=== PATIENT | female | born 1975 | race Caucasian/White ===

== ENCOUNTER 2023-05-29 13:10 | Outpatient (OUT) | payer OTHER, SELFPAY ==
--- NOTE | 2023-05-29 13:19 | XR_ITS ---
[place] [id number] Patient Name: VAIBHAV RIVERA MRN: [id number] date: 1975 Sex: F Assigned Patient Location: [facility] Current Patient Location: [facility] Accession/Order Number: [id number] Exam Date: 05/29/2023 13:30 Report Date: 05/29/2023 16:52 At the request of: VARUN GLASS Procedure: XR tibia fibula LT 2V STUDY: XR tibia fibula LT 2V, [id number] HISTORY: Left Hip Pain, Left Leg Pain COMPARISON: None FINDINGS: No acute fracture, dislocation, or suspicious osseous lesion. No lucent lesion of the talar dome. Medium-sized plantar calcaneal spur. Mild osteoarthritis of the medial compartment of the knee. XR/XR tibia fibula LT 2V IMPRESSION: No acute osseous abnormality. Electronically authenticated by: JOSH MONROY Date: 05/29/2023 16:52
--- NOTE | 2023-05-29 13:19 | XR_ITS ---
The [address] [address] Patient Name: VAIBHAV RIVERA MRN: [id number] date: 1975 Sex: F Assigned Patient Location: [facility] Current Patient Location: [facility] Accession/Order Number: [id number] Exam Date: 05/29/2023 13:30 Report Date: 05/29/2023 16:50 At the request of: VARUN GLASS Procedure: XR hip LT 1V STUDY: XR hip LT 1V, [id number] HISTORY: Left Hip pain, Left Leg Pain COMPARISON: None FINDINGS: No acute fracture, dislocation, or suspicious osseous lesion. No significant degenerative changes. An IUD projects over the pelvis. XR/XR hip LT 1V IMPRESSION: Negative exam. No osseous etiology for left hip pain demonstrated. Electronically authenticated by: JOSH MONROY Date: 05/29/2023 16:50
--- NOTE | 2023-05-29 13:19 | XR_ITS ---
The [place] [id number] Patient Name: VAIBHAV RIVERA MRN: [id number] date: 1975 Sex: F Assigned Patient Location: [facility] Current Patient Location: [facility] Accession/Order Number: [id number] Exam Date: 05/29/2023 13:30 Report Date: 05/29/2023 15:57 At the request of: VARUN GLASS Procedure: XR femur LT 2V XR femur LT 2V, 05/29/2023 1:30 PM EDT, OH001 INDICATION: Left Hip Pain, Left Leg Pain COMPARISON: None TECHNIQUE: 3 views are submitted. FINDINGS: The bones appear well mineralized. No acute fracture or subluxation is identified. The joint spaces are maintained. No destructive osseous process is identified. The visualized soft tissues appear unremarkable. XR/XR femur LT 2V IMPRESSION: No acute traumatic abnormality or malalignment. Electronically authenticated by: DEBRA KLINE Date: 05/29/2023 15:57
== END 2023-05-29 13:11 | disposition home or self-care (01) ==
LOC: RAD 13:10
PROVIDERS: PCP Family Medicine; Visit Provider Family Medicine
DX: M25.552 Pain in left hip (principal); M79.606 Pain in leg, unspecified
CPT/HCPCS: 73501; 73552; 73590

== ENCOUNTER 2024-01-30 10:21 | Emergency (ER) | payer OTHER, SELFPAY ==
[2024-01-30 10:24] VITALS: BP 180/100; PULSE 84; TEMP 36.9; O2SAT 100; BMI 43.5
--- NOTE | 2024-01-30 11:08 | ECG_ITS ---
The [facility] Test Date: 2024-01-30 Pat Name: VAIBHAV RIVERA Department: Room: - Gender: Female [employer]: : 1975 Requested By: VARUN GLASS Order Number: [id number] Reading MD: CRISTA DINH Measurements Intervals [place] Rate: 75 P: 50 SD: 158 QRS: 78 QRSD: 94 T: 60 QT: 382 QTc: 411 Interpretive Statements 1100 Sinus rhythm 9110 normal ECG No previous ECG available for comparison Electronically Signed On 01-31-2024 10:52:53 EDT by CRISTA DINH
--- NOTE | 2024-01-30 11:08 | XR_ITS ---
The [address] [address] Patient Name: VAIBHAV RIVERA MRN: [id number] date: 1975 Sex: F Assigned Patient Location: ER Current Patient Location: ER Accession/Order Number: [id number] Exam Date: 01/30/2024 11:20 Report Date: 01/30/2024 11:30 At the request of: DO ARTIS Procedure: XR chest 1V EXAM: XR chest 1V HISTORY: . chest pain . COMPARISON: 01/30/2024 TECHNIQUE: Single view of the chest FINDINGS: Heart and vascularity are unremarkable. Lungs are free of focal infiltrates. Grossly no bony abnormality is appreciated. XR/XR chest 1V IMPRESSION: No acute heart or lung disease identified. Electronically authenticated by: VARUN BARLOW Date: 01/30/2024 11:30
[2024-01-30 11:22] LABS: Bilirubin Urine NEGATIVE (NEGATIVE); Blood Urine NEGATIVE (NEGATIVE); Clarity Urine CLEAR (CLEAR); Color Urine LT. YELLOW (YELLOW); Glucose Urine UA NEGATIVE (NEGATIVE); Ketones Urine NEGATIVE (NEGATIVE); Leukocyte Esterase Urine NEGATIVE (NEGATIVE); Nitrite Urine NEGATIVE (NEGATIVE); Protein Urine NEGATIVE (NEG/TRACE); Specific Gravity Urine <=1.005 (1.005-1.025); Urobilinogen Urine 0.2 EU/dL (0.2-1.0)
[2024-01-30] MEDS: KETOROLAC TROMETHAMINE 30 MG/ML VIAL 15 MG IVP (11:22)
[2024-01-30 11:23] LABS: Urine Microscopic Indicated NO
[2024-01-30] MEDS: DIAZEPAM 10 MG/2 ML SYRINGE 5 MG IV (11:23)
[2024-01-30 11:27] LABS: Basophils Percent Auto 0.6 % (0.2-2.0); Eosinophils Absolute Auto 0.1 10^3/uL (0.0-0.7); Eosinophils Percent Auto 0.9 % (0.9-7.0); Hematocrit 41.2 % (36.0-48.0); Hemoglobin 13.7 g/dL (12.0-16.0); Immature Granulocytes Abs Auto 0.01 10^3/uL (0.00-0.03); Immature Granulocytes Pct Auto 0.2 % (0.0-0.5); Lymphocytes Absolute Auto 2.3 10^3/uL (1.2-3.8); Lymphocytes Percent Auto 42.7 % (20.5-60.0); Mean Corpuscular HGB Conc 33.3 g/dL (29.9-35.2); Mean Corpuscular Hemoglobin 30.4 pg (26.7-34.0); Mean Corpuscular Volume 91.6 fL (81.0-99.0); Mean Platelet Volume 8.7 fL (9.5-13.5); Monocytes Absolute Auto 0.3 10^3/uL (0.3-0.8); Monocytes Percent Auto 6.2 % (1.7-12.0); Neutrophils Absolute Auto 2.6 10^3/uL (1.4-6.5); Neutrophils Percent Auto 49.4 % (43.0-75.0); Platelet Count 302 10^3/uL (150-450); Red Cell Distribution Width 12.8 % (11.0-15.0); White Blood Count 5.3 10^3/uL (4.0-11.0)
[2024-01-30 11:35] LABS: Anion Gap 15.8; BUN Creatinine Ratio 14.7; Calcium 9.6 mg/dL (8.5-10.1); Carbon Dioxide 26.2 mmol/L (21.0-32.0); Chloride 103 mmol/L (98-107); Estimated GFR (African America >60 (>=60); Estimated GFR (Non-African Ame >60 (>=60); Glucose 105 mg/dL (74-106); Sodium 141 mmol/L (136-145)
[2024-01-30 11:43] LABS: Troponin I High Sensitivity <4.0 pg/mL (4.0-51.3)
[2024-01-30 13:21] VITALS: PULSE 66; O2SAT 98
--- NOTE | 2024-01-30 13:22 | ED_ITS ---
HPI HPI - General Adult General Chief complaint: Back Pain/Injury Stated complaint: BACK PAIN Time Seen by Provider: 01/30/24 10:27 Source: patient Mode of arrival: walk-in Limitations: no limitations History of Present Illness HPI narrative: 48-year-old female to the emergency department with chief complaint of Back pain. Patient reports that she was sitting in her chair the other day at work and reached for something experienced a spasm-like pain in her left lower back. It does not radiate. It is worse with movement. She denies any bowel bladder incontinence. No numbness, weakness, tingling. It does limit her activity level. She saw her chiropractor for this and it helped. Patient also reports that she has some chronic back pain as well as some intermittent chronic pain in her left arm. She is concerned that she may be having a heart attack due to the pain in the left arm that occurs intermittently. Related Data Previous Rx's ?Medication ?Instructions ?Recorded cyclobenzaprine 10 mg tablet 10 mg PO BID PRN muscle spasm #10 01/30/24 tabs Allergies Allergy/AdvReac Type Severity Reaction Status Date / Time clarithromycin [From Biaxin] Allergy Mild Verified 01/30/24 10:24 Opioid HPI Opioid Management Most Recent Opioid Data: Last Pain Scale 77 01/30/24 11:22 Last MAR Pain Assessment 01/30/24 11:22 Review of Systems ROS Status of ROS 10 or more systems reviewed and unremark able except as noted in history and below Exam Narrative Exam Narrative: VITALS: I have reviewed the triage vital signs. GENERAL: Obese. adult in no acute distress. NEURO: Alert and oriented. Moves all extremities. Face is symmetric and expressive. Patellar reflexes brisk and equal bilaterally. Normal gait. Plantar flexion/dorsiflexion, knee flexion/extension, hip flexion/extension are grossly intact with 5/5 strength. Sensation is intact across the bilateral lower extremities. SPINE: No midline cervical, thoracic, or lumbar tenderness. No step-off or deformities. No paraspinal muscle tenderness or increased tone. EYES: PERRL. No scleral icterus or conjunctival injection. No discharge. HENT: Normocephalic, atraumatic. Hearing is grossly intact. Nares grossly patent and without discharge. Mucous membranes moist. NECK: No JVD. Patient moves neck without restriction. CARDIO: Rhythm regular. Normal rate. No murmur, rub, or gallop. Pulses equal bilaterally in the upper and lower extremity. No lower extremity edema. PULM: Lungs clear to auscultation in all ibrahim. No wheezes, rales, or rhonchi. No conversational dyspnea. No splinting, stridor, or accessory muscle use. GI/: Abdomen is soft and non-tender. Normoactive bowel sounds. No flank tenderness. EXTREMITIES: Symmetric muscle bulk. No joint swelling. No clubbing, cyanosis, or deformity. SKIN: Warm and dry. Normal turgor. No rash or lesions appreciated. PSYCH: Anxious Constitutional Vital Signs, click to edit/add: Last Vital Signs Temp 98.4 F 01/30/24 10:24 Pulse 84 01/30/24 10:24 Resp 18 01/30/24 10:24 BP 180/100 H 01/30/24 10:24 Pulse Ox 100 01/30/24 10:24 O2 Del Method Room Air 01/30/24 10:24 Course Vital Signs Vital signs: Vital Signs Temperature 98.4 F 01/30/24 10:24 Pulse Rate 84 01/30/24 10:24 Respiratory Rate 18 01/30/24 10:24 Blood Pressure 180/100 H 01/30/24 10:24 Pulse Oximetry 100 01/30/24 10:24 Oxygen Delivery Method Room Air 01/30/24 10:24 Temperature 98.4 F 01/30/24 10:24 Pulse Rate 84 01/30/24 10:24 Respiratory Rate 18 01/30/24 10:24 Blood Pressure 180/100 H 01/30/24 10:24 Pulse Oximetry 100 01/30/24 10:24 Oxygen Delivery Method Room Air 01/30/24 10:24 Medical Decision Making [facility] Narrative Medical decision making narrative: 48-year-old female to the emergency department with chief complaint of left- sided back pain and concerned she is having a heart attack. Vital stable, patient is aafebrile. Patient is very visibly anxious. Her neurologic examination is unremarkable. To alleviate her concerns about the left arm pain and heart attack order a cardiac workup. Symptoms ongoing gradient three hours, seen by sensory troponin and also rule out ACS. She is given Valium for her back pain/anxiety. No traumatic injury or red flags for cord compressing lesion, no indication for imaging of her spine at this time. CBC and chemistry without major abnormalities. Her troponin is undetectable. Urinalysis without evidence of infection or hematuria. Chest x-ray was without acute findings. EKG without evidence of ischemia. Heart score 2. Her pain does not sound cardiac. She is appropriate for outpatient follow-up. She did have relief with the Valium. She does not wish to be on any medications that could be addicting. She'll be sent home on Flexeril. Instructed to continue use of ibuprofen. She may follow up with her chiropractor as needed. Patient was discharged home. Lab Data Lab results reviewed: Yes I reviewed the patient's lab results Labs: Lab Results 01/30/24 01/30/24 Range/Units 10:45 11:15 WBC 5.3 (4.0-11.0) 10^3/uL RBC 4.50 (4.20-5.40) 10^6/uL Hgb 13.7 (12.0-16.0) g/dL Hct 41.2 (36.0-48.0) % MCV 91.6 (81.0-99.0) fL MCH 30.4 (26.7-34.0) pg MCHC 33.3 (29.9-35.2) g/dL RDW 12.8 (11.0-15.0) % Plt Count 302 (150-450) 10^3/uL MPV 8.7 L (9.5-13.5) fL Neut % (Auto) 49.4 (43.0-75.0) % Lymph % (Auto) 42.7 (20.5-60.0) % [place] % (Auto) 6.2 (1.7-12.0) % Eos % (Auto) 0.9 (0.9-7.0) % Baso % (Auto) 0.6 (0.2-2.0) % Neut # (Auto) 2.6 (1.4-6.5) 10^3/uL Lymph # (Auto) 2.3 (1.2-3.8) 10^3/uL [place] # (Auto) 0.3 (0.3-0.8) 10^3/uL Eos # (Auto) 0.1 (0.0-0.7) 10^3/uL Baso # (Auto) 0.0 (0.0-0.1) 10^3/uL Abs Immat Gran (auto) 0.01 (0.00-0.03) 10^3/uL Imm/Tot Granulo (auto) 0.2 (0.0-0.5) % Sodium 141 (136-145) mmol/L Potassium 4.0 (3.5-5.1) mmol/L Chloride 103 (98-107) mmol/L Carbon Dioxide 26.2 (21.0-32.0) mmol/L Anion Gap 15.8 BUN 10.0 (7.0-18.0) mg/dL Creatinine 0.68 (0.55-1.02) mg/dL Est GFR ( Amer) >60 (>=60) Est GFR (Non-Af Amer) >60 (>=60) BUN/Creatinine Ratio 14.7 Glucose 105 (74-106) mg/dL Calcium 9.6 (8.5-10.1) mg/dL Troponin I High Sens <4.0 L (4.0-51.3) pg/mL Urine Color Lt. yellow (YELLOW) Urine Clarity Clear (CLEAR) Urine pH 7.0 (5.0-9.0) Ur Specific [place] <=1.005 A (1.005-1.025) Urine Protein Negative (NEG/TRACE) mg/dL Urine Glucose (UA) Negative (NEGATIVE) mg/dL Urine Ketones Negative (NEGATIVE) mg/dL Urine Occult Blood Negative (NEGATIVE) Urine Nitrite Negative (NEGATIVE) Urine Bilirubin Negative (NEGATIVE) Urine Urobilinogen 0.2 (0.2-1.0) EU/dL Ur Leukocyte Esterase Negative (NEGATIVE) Imaging Data Chest x-ray: Attestation: I have reviewed the pertinent imaging results. Radiologist's impression: ITS Impressions Chest X-Ray 01/30/24 11:08 IMPRESSION: No acute heart or lung disease identified. Electronically authenticated by: VARUN BARLOW Date: 01/30/2024 11:30 ECG Data Attestation: I personally reviewed and interpreted this ECG as follows: (No STEMI. Normal QTc. Normal sinus rhythm.) Discharge Plan Discharge Stand Alone Forms: Portal Instructions Chief Complaint: Back Pain/Injury Clinical Impression: Strain of lumbar region Patient Disposition: Home, Self-Care Time of Disposition Decision: 12:39 Condition: Good Mode of Transportation: Private Vehicle Prescriptions / Home Meds: New cyclobenzaprine 10 mg tablet 10 mg PO BID PRN (Reason: muscle spasm) Qty: 10 0RF Print Language: [place] Instructions: Low Back Strain (ED), Lower Back Exercises (ED) Referrals: VARUN GLASS [Primary Care Provider] - 1 week
== END 2024-01-30 13:22 | disposition home or self-care (01) ==
PROVIDERS: Emergency Provider Student in an Organized Health Care Education/Training Program; PCP Family Medicine
DX: S39.012A Strain of muscle, fascia and tendon of lower back, initial encounter (principal); X50.9XXA Other and unspecified overexertion or strenuous movements or postures, initial encounter
CPT/HCPCS: 36415; 71045; 80048; 81003; 84484; 85025; 93005; 96374; 96375; 99285

== ENCOUNTER 2025-09-24 00:32 | Emergency (ER) | payer OTHER, SELFPAY ==
--- OUTSIDE RECORDS SUMMARY | 2025-09-14 19:52 | XMS_ITS | Continuity of Care Document ---
Author Organization [facility] Address [address] [place] [address] Phone Care Team Providers Care Cleaning Manager Name Role Phone Amanuel Kevin DO Primary Care Provider Amanuel Kevin DO Attending Provider Nathan Suggs APRN Attending Provider Care Teams Patient Care Team Team Status: Active Member Role/Relationship Status Dates Amanuel Kevin DO Primary Care Provider Active Visit Care Team Team Status: Inactive Member Role/Relationship Status Dates Amanuel Kevin DO Primary Care Provider Active S tart: August 04, 2025 End: August 04, 2025Dahali Kevin DOAttending ProviderActiveStart: August 04, 2025 End: August 04, 2025 Visit Care Team Team Status: Inactive Member Role/Relationship Status Dates Amanuel Kevin DO Primary Care Provider Active S tart: September 14, 2025 End: September 14, 2025Clark Chavez ProviderActiveStart: September 14, 2025 End: September 14, 2025 Visit Care Team Team Status: Inactive Member Role/Relationship Status Dates Amanuel Kevin DO Primary Care Provider Active S tart: September 14, 2025 End: September 14, 2025Clark Chavez ProviderActiveStart: September 14, 2025 End: September 14, 2025 Chief Complaint and Reason for Visit Chief Complaint Admit Date med refill August 04, 2025 1 1:14am GERD/refer by Dr Kevin September 14, 2 025 2:17pm K21.9 September 14, 2025 3:31pm Reason for Visit Admit Date Acute sinusitis August 04, 2025 1 1:14am Anxiety August 04, 2025 1 1:14am Other obesity due to excess calories Nov ember 2024 11:14am Eructation September 14, 2025 2:17pm GERD (gastroesophageal reflux disease) D ecember 2024 2:17pm Irritable bowel syndrome with constipati on September 14, 2025 2:17pm Nausea September 14, 2025 2:17pm Allergies, Adverse Reactions, Alerts Allergen Type Severity Reaction Last Updated Verified Status bupropion Allergy Unknown felt off on it August 282024 2:50pm Yes Active clarithromycin Allergy Unknown Nausea, GI upset Dece mber 2024 2:50pm Yes Active topiramate Allergy Unknown Unknown Reaction September 14, 2025 2:50pm Yes Active Social History Smoking Status Status Start Date End Date Date of Observa tion Ex-smoker (finding) August 04, 2025 11:13am Observation Status Observation Response Date of Response Legal Sex Female (finding) Sex Assigned At BirthFemaleMay 1974 Family History Relationship Condition Age at Onset Recorded Date/T erlinda mother Transient ischemic attack Unknown HypertensionUnknownfatherMalignant neoplasm of lungUnknownfatherDiabetes mellitusUnknownMalignant neoplasmUnknownFamily history of lung cancerUnknown DeceasedUnknowngrandparentDeceasedUnknowngrandparentDeceasedUnknowngrandparent DeceasedUnknowngrandparentObesityUnknownmotherHypertensionUnknown Problems Active Problems Problem Diagnosis/Recorded Date Onset Date Stat us Unspecified abnormal findings in urine March 01, 2025 7:22am Unknown Active Other detention (current) drug therapy February 01, 2024 4 :53pm Unknown Active Other obesity due to excess calories January 11, 2025 9:04am Unknown Active Sacroiliitis December 05, 2024 3:46pm Unknown Acti ve Cold sore June 12, 2025 9:41am Unknown Active Fatigue July 08, 2024 11:51am Unknown A ctive Palpitations November 22, 2017 7:17am Unknown A ctive Irregular periods January 11, 2025 9:18am Unknown Active Paresthesia May 02, 2024 3:23pm Unknown Acti ve Chronic pain February 01, 2024 4:52pm Unknown Active Acute sinusitis September 30, 2024 10:02am Unknown Active Anxiety November 22, 2017 7:17am Unknown A ctive Breathing difficulty September 30, 2024 10:02am Unknown Active Eructation September 14, 2025 3:47pm Unknown A ctive Cephalgia February 26, 2022 6:07pm Unknown Active Hyperglycemia February 01, 2024 5:08pm Unknown Active Hyperlipidemia February 01, 2024 4:52pm Unknown Activ e Arm pain, left February 01, 2024 5:07pm Unknown Activ e Facial paresthesia February 26, 2022 6:07pm Unknown Active Cervical spondylosis December 05, 2024 3:49pm Unknown Active SI (sacroiliac) joint dysfunction February 01, 2024 5:26pm Unknown Active Other chronic pain December 05, 2024 3:46pm Unknown Active Left leg paresthesias February 26, 2022 5:08pm Unknown Active Weight gain February 01, 2024 5:11pm Unknown Active Abnormal urinalysis February 01, 2024 5:08pm Unknown Active Facial droop February 26, 2022 6:07pm Unknown Active Lumbar pain February 01, 2024 4:54pm Unknown Active Cervical pain March 11, 2024 9:15am Unknown Acti ve Thoracic back pain November 07, 2024 5:09pm Unknown Active GERD (gastroesophageal reflux disease) February 01, 2024 3 :07pm Unknown Active Irritable bowel syndrome wit h constipation September 14, 2025 3:48pm Unknown Active Chest pain September 30, 2024 10:20am Unknown Ac tive Nausea September 14, 2025 3:47pm Unknown A ctive Constipation September 02, 2024 10:41am Unknown A ctive Arthritis of lumbosacral spine December 05, 2024 3:46pm Unknown Active Hypocalcemia May 01, 2025 9:46am Unknown Acti ve Medications Medication Status Dose Units Route Directions Qty Days Refills S tart Date Stop Date End Date Reason(s) Instructions Adherence Venlafaxine (Effexor Xr) 37. 5 mg capsule,extended release 24hr Discontinued 37.5 MG PO Daily 30 0May 2023 11:00pmJune 2023 11:20amVenlafaxine (Effexor Xr) 37.5 mg capsule,extended release 76ftRuqfaelgvbwq59.8EPQROgjba3545Bqmh 2023 11:20am September 30, 2024 10:17amMeloxicam 15 mg udxxnfHdtcjxunetwt06PWSYJlzdb463Crmd 2023 11:00pmJanuary 2024 9:51amwith foodAlprazolam 1 mg tablet Ucirneyebyym8TVUHCSESB 8-12 HOURS as needed for tfwkyvh44080Uhsu 2023 10:31amNovember 2023 4:49pmAnxiety Anxiety disorder, unspecifiedsemaglutide 0.6 mgActive0.5MLSUBCUT.once byfapa00 August 01, 2024 12:00amUnknownFluoxetine (Prozac) 40 mg alhgejzGbsqotepfdpf85 MGPOEvery dsnqrml775Vwjrxoaa 2024 12:00amMay 2024 7:11amFluoxetine (Prozac) 40 mg uxqcewpZxqljfgvmzqy34CDKBGnrwg iqoseiu333Xch 2nd, 2025 7:11am May 30, 2025 9:07amFluoxetine 40 mg frgivknHwkqcuahjryj88JLKHOonrs humuyxb142Mrylxtimj 2nd, 2025 9:07amDecember 2024 8:44amFluoxetine 40 mg capsuleActive0.ROUTE.OFCXTXW487Utanpuae 2024 8:43amTAKE 1 CAPSULE BY MOUTH EVERY MORNINGUnknownPantoprazole 40 mg tablet,delayed release (DR/EC)Wyaora14OY TZRtcus287Qlpwpbzn 2024 12:00amUnknownVenlafaxine (Effexor) 25 mg Tablet Fosyedhzevym37MYVXKpgmzCzfdqnab 21st, 2022 12:00amMay 2023 4:43pmAscorbic Acid (Vitamin C) (Vitamin C) 100 mg FsnqaqLricxosxubow836LYFDHpineTusvsrzw 2021 12:00amMa2023 4:47pmGabapentin 300 mg OerpdtyDmfqikmlimoy924CDUD DailyDece2021 12:00amMay 2023 4:43pmCholecalciferol (Vitamin D3) (Vitamin D3) 10 mcg (400 unit) CjtwsstVfspfifmwtlm45QKMCMUmgirGowosrfz 2021 12:00amMay 2023 4:42pmAscorbic Acid (Vitamin C) (Vitamin C) 100 mg rrpwbzHghunymrkanm784CQDWBroioEra 2023 4:42pmMay 2023 4:54pmAlprazolam 0.25 mg ywimuoDpigpndodnzp7XIPPNNcupo times daily as needed for AnxietyFebruary 2017 12:00amJanuary 2019 12:00pmBupropion Hcl 300 mg tablet extended release 24 ziBbeaiibziugp349DHDFCmnxpZrfjgedd 2017 12:00amJanuary 2019 12:00pmFluoxetine (Prozac) 40 mg HiqnsreIlxnlwpnrjhy68IPJFXjcayYexykqq 2019 12:00amJune 2021 2:22pmAlprazolam (Xanax) 0.5 mg Tablet Discontinued0.5MGPOTwice daily as needed for AnxietySepuary 2019 12:00am February 01, 2024 4:44pmPhentermine-Topiramate (Qsymia) 7.5-46 mg Capsule, Er Multiphase 24 NoRtnrvbqgqjcm0VDLRIAgajpOmm 2021 11:00pmDecember 2021 7:57amAtorvastatin 20 mg LervumVqwtctvizeuz14VAMYNndxz mrfqash251Csni 2021 11:00pmDecember 2021 7:57amAspirin (Children's Aspirin) 81 mg Tablet,TvxpesdoCmkoicqxouuw89WWPKFgkfp332Cjod 2021 11:00pmDecember 2021 7:57amOmeprazole 20 mg capsule,delayed release(DR/EC)Hvmtsiovarnc0AXFVP DailyMay 2023 11:00pmJanuary 2024 9:58amFreeTextSi capsule 30 minutes before morning meal Orally Once a day; Note: Source Status: Taking; Provider: Dorita Vital ( )Ibuprofen 800 mg ozqnmtZiflocttefxu201 MGPOEVERY 8-12 HOURS as neededMay 2023 11:00pmJune 2023 9:15am Albuterol Sulfate 90 mcg/actuation HFA aerosol inhalerDiscontinuedINHALATIONMay 2023 11:00pmFebruary 2024 4:56pmFreeTextSi inhalations Inhalation qid; Note: Source Status: Taking; Refills: 1; Provider: Dorita Vital CAlprazolam 1 mg irtcjuEfhydknoibqk5GKIMEGMGS 8-12 HOURS as neededJanuary 31, 2024 11:00pmMay 2023 5:24pmDocusate Sodium 100 mg pobjihjCjwgerjrbdnf2AZZRDLcbcyFya 2023 11:00pmMay 2023 4:55pmFreeTextSi capsule Orally Once a day; Note: Source Status: Takingprn; Provider: Dorita Vital CFluticasone Propionate 50 mcg/actuation spray,zsfzvrmybbYnufmn3JSCJMDZDRMSDWVAEvbsdSkf 5th, 2024 11:00pm FreeTextSi sprays in each nostril Nasally Once a day; Note: Source Status: Not-Taking\PRNprn; Refills: 3; Provider: Dorita KimknownBupropion Hcl (Wellbutrin Xl) 150 mg tablet extended release 24 kuAwtdffehsxxo867ZTUADuheq morningMa2023 11:00pmMay 2023 5:24pmDocusate Sodium 100 mg capsule Pvczqd415OAVDPwfgzEbl 6th, 2024 4:55pmUnknownBupropion Hcl (Wellbutrin Xl) 150 mg tablet extended release 24 olYhqjzfmcqotq998QKUMOcoum bqnckaw034Oqt 6th, 2024 5:16pmMay 2023 5:29pmPrednisone 20 mg rdlggcCadderxlgnys2EZ.with food or oczy1261BbyJanuary 31, 2024 11:00pmMay 2023 5:29pmtake 3 tablets a day x3 days, 2 tabs a day x3 days and then 1 tab a day x3 days orally WITH FOOD ORMILK; Alprazolam 1 mg zlgvkoMqcacubwqpei5BNIAEGKZI 8-12 HOURS as needed for 100May 2023 5:23pmJune 2023 10:31amAnxiety Anxiety disorder, unspecifiedBupropion Hcl (Wellbutrin Xl) 150 mg tablet extended release 24 deVefidusdprwq696JRDKOtobu cbdtbqd942Pxw 2023 5:27pmMay 2023 12:18pmPrednisone 20 mg pguiekKdcogayytizd0PX.with food or mnyi9218 February 01, 2024 5:27pmJune 2023 9:15amtake 3 tablets a day x3 days, 2 tabs a day x3 days and then 1 tab a day x3 days orally WITH FOOD ORMILK;Omeprazole 20 mg capsule,delayed release(DR/EC)Gkdfdrpladsz17TUWO.COMPLEXJanuary 2024 9:58amDecember 2024 9:05am20 mg orally 1 capsule 30 minutes before morning meal;Albuterol Sulfate 90 mcg/actuation HFA aerosol yazfzoyEdwvmi4QQNGEJJVHAEHB Four times dailyFebruary 2024 4:56pmUnknownAspirin (Jie Low Dose Aspirin) 81 mg tablet,delayed release (DR/EC)Pojbxr95XRMSUmqsqOtfvnzs 2023 11:00pmUnknownAlprazolam 1 mg dxvmvtCrytibzkeogu3JUQDCWJFD 8-12 HOURS as needed for nraigre08788Hmjozeqe 2023 4:49pmJanuary 2024 10:19amAnxiety Anxiety disorder, unspecifiedAlprazolam 1 mg eepjqmOwqxsiytouyk7RBEXURVGP 8-12 HOURS as needed for wakpfbc80417Qvhnsevy 2024 5:29pmApril 2024 9:15amAnxiety Anxiety disorder, unspecifiedNitroglycerin 0.4 mg tablet, sublingualActive0.4MG ASOECQXVUJW8R as needed for chest uoez202Qmbzlkdm 2024 12:00amdo not exceed 3 dosesUnknownAlprazolam 1 mg sthdubQlwxyc9CADMLEIDU 8-12 HOURS as needed for jmroegg10158Hmplxo 2024 9:56amAnxiety Anxiety disorder, unspecifiedUnknownMeloxicam 15 mg xguhitDbmzvptzubgf18ZZYD Daily as neededJanuary 2024 9:49amAugust 2024 9:34amwith food Amoxicillin-Pot Clavulanate 875-125 mg zsfsptCuxbulczsojy1BJCRTGulwm twhqw1180 September 30, 2024 12:00amFebruary 2024 4:49pmwith foodFluoxetine (Prozac) 20 mg iehgodvKkjxuwqsjucq26DEJRQorol660Qqisqfz 2024 12:00amFebruary 2024 9:38amAlprazolam 1 mg icjereCfricbfglyaa3CUJSANMZQ 8-12 HOURS as needed for mhcpdto89476Lmafupv 2024 10:19amFebruary 2024 5:32pmAnxiety Anxiety disorder, unspecifiedAlprazolam 1 mg cnmvptXmjeqjrncuvp6IYRUASNPY 8-12 HOURS as needed for imxwdmk69442Fethl 2024 9:15amAugust 2024 9:56am Anxiety Anxiety disorder, unspecifiedValacyclovir (Valtrex) 1 gram tabletDiscontinued 1000MGPOThree times xnheu5034Xcwpeodna 14th, 2025 11:00pmNov2024 11:12amPrednisone 20 mg zjndjyJlifeglzdxfr3NK.with food or lnjn7469Bekzsbwgs 14th, 2025 11:00pmNov2024 11:11amtake 3 tablets a day x3 days, 2 tabs a day x3 days and then 1 tab a day x3 days orally WITH FOOD ORMILK;Amoxicillin- Pot Clavulanate 875-125 mg lrlxsnWjbmmziejzqw3FSDMZJuecm oflgb95439Jxtwpzxpc 14th, 2025 11:00pmNov2024 11:11amwith food Immunizations Immunization Event Date Not Given Reason Dose Number [employer] Lot Number Reason(s) Given Vaccine Information Statement (VIS) Detail Administration Location Hepatitis B Vaccine, adult dosage May 06 Hepatitis B Vaccine, adult dosageSeptember 2001Hepatitis B Vaccine, adult dosageMarch 2002Measles, Mumps, and Rubella Virus VaccineDeceer 2018Quadrivalent InfluenzaDecember 2018Trivalent Influenza VaccineOctober 1Patient RefusedVaricella Virus VaccineDeceer 2018 Procedures Procedure Date Performed Status XR KUB September 14, 2025 3:36pm compl eted Relevant Diagnostic Tests and/or Laboratory Data Diagnostic Imaging Reports Author Zhou Warren [facility]Report Date/TimeDeceer 2024 10:03pm [facility] Main [place] [address] [place] [address] XRay Report Signed Patient: Araseli Fernandez MR#: [id number] : 1975 Acct:[id number] Age/Sex: 50 / F ADM Date: 5 Loc: XD Room: Type: [facility] Attending Dr: Nathan Suggs APRN Copies to: Nathan Suggs APRN~ Ordering Provider: Nathan Suggs APRN Date of Service: 09/14/25 XR/XR KUB: K21.9 - Gastro-esophageal reflux disease without esophagitis XR KUB 09/14/2025 4:02 PM SIGNS AND SYMPTOMS: ^K21.9 - Gastro-esophageal reflux disease without esophagitis, constipation PROTOCOL: Frontal radiographs of the abdomen and pelvis COMPARISON: None FINDINGS: There is a large amount of stool within the right hemicolon suggesting constipation. There is no bowel obstruction or free air. Degenerative changes are noted in the lumbar spine and sacroiliac joints. There is an intrauterine device within the pelvis. XR/XR KUB IMPRESSION: There is a large amount of stool within the right hemicolon suggesting constipation. There is no bowel obstruction or free air. Impression dictated by: Zhou Warren M.D. 09/14/2025 10:03 PM Dictation Location: [place] [address] Transcribed By: [facility] 09/14/252202 Dictated By: Zhou Warren II, MD 09/14/252201 Signed By: <Electronically signed by Zhou Warren II, MD in OV> 09/14/252202 Vital Signs Vital Reading Result Reference Range Collection Date/Time Height 63 [in_i] August 04, 2025 10:67rsYtlfcx93.18 kgNov2024 10:58amBody Snutltdwexl02.0 [degF]97.6-99.0August 04, 2025 10:58amHeart Rate73 /emo04-180 August 04, 2025 10:58amOxygen saturation by Pulse %95-100August 04, 2025 10:58amBP Coexuhdb800 mm[Hg]100-140August 04, 2025 10:58amBP Yeihzcrnp30 mm[Hg]60-100Nov2024 10:58amBMI (Body Mass Index)33.6 kg/f0KnykornqAugust 04, 2025 10:66njRkfxmt68 [in_i]September 14, 2025 2:50pmWeight 86.18 kgD[facility] 2:50pmBMI (Body Mass Index)33.6 kg/x0Uhcqzfex 2024 2:50pm Advance Directives Advance Directive Response Recorded Date/ Time Advance Directives No September 30, 2024 10:24am Insurance Providers Guarantor Araseli Garduno [facility] Address [address] [place] [id number] Info.Home Phone: Payer Group Member ID Coverage Type Subscriber Relationship to Subscriber Effective Date Expiration Date O Id: [id number] Miller , D Id: [id number] [address] [place] [id number] Home Phone: Email: [email or web address] Encounters Encounter Location(s) Arrival/Admit Date Discharge/Departure Date Discharge/Departure Disposition Provider(s) Departed Physician/ Provider Office Visit -[facility] August 04, 2025 11:14am August 04, 2025 11:34am Discharged to home care or self care (routine discharge) Amanuel Kevin DO Departed Physician/ Provider Office Visit -[facility] September 14, 2025 2:17pm September 14, 2025 3:14pm Discharged to home care or self care (routine discharge) Nathan Suggs APRN Departed Clinical -[facility] September 14, 2025 3:31pm September 14, 2025 3:32pm Discharged to home care or self care (routine discharge) Nathan Suggs , DIRECTOR OF DESIGN Recent Diagnosis Onset Date Admit Date Acute sinusitis Unknown August 04 11:14am Anxiety Unknown August 04 11:14am Other obesity due to excess calories Unknown August 04, 2025 11:14am Eructation Unknown September 14, 025 2:17pm GERD (gastroesophageal reflux disease) Unknown September 14, 2025 2:17pm Irritable bowel syndrome with constipation Unkno wn September 14, 2025 2:17pm Nausea Unknown September 14 025 2:17pm Assessments Author Amanuel Kevin [facility] 2024 11:43amThe above note written by ___Vanna Cook____ acting as human recorder, note dictated by Dr. Vernon .I performed the above HPI, ROS, and Examination. I formulated and dictated the treatment plan and was present for entire encounter. Amanuel Kevin D.O. Plan of Treatment Author Vanna Cook [facility] 2024 11:31amShe does continue to use and benefit from the Xanax. She should call when she needs a refill. Frequent appointments needed due to addiction potential of medication. Pain inventory sheet completed and reviewed if opioid medication given. Pain contract is on file if pertinent. Patient will have office visits every three months for evaluation or sooner if needed. I discussed addiction potential of medication with the patient. Discussed with the patient and provided a treatment plan including the use of non-opioid analgesics and non-pharmacological intervention with patient if treated for pain. We have discussed realistic benefits and known risks of opioid/controlled therapy and the expected benefits for both pain and function. These benefits outweigh the risks. Patient has been counselled on the dangers of combining opioids/controlled prescriptions with alcohol or other sedatives and counseled on the safe storage and disposal of opioids/controlled prescriptions. Do not drive or operate heavy machinery after taking opioid/controlled medication. I have verified that no current substance abuse treatments are being prescribed.? She was on Prednisone in May (2024) which did make it difficult to lose weight. She is not doing any weight training. I did highly recommend that she do weight training three days a week. We discussed her increasing her dose. Right now she is comfortable continuing with the same dose (0.6 MG) once weekly and if at any time between now and her next visit she feels she wants to increase her dose she can call and we can increase her dose. She feels she is maintaining her weight well. She is concerned about the winter and being stuck inside, less active and the holidays are coming so she would like to see how she is able to do on her own. She is to continue to monitor her intake of carbs and sugars. Resolved. She feels that she did recover from her illness in May. She completed her medication as directed. Author [facility] Suggs [facility] 3:52[facility]- Continue current PPI therapy for treatment of GERD and nausea. - Anti-reflux precautions discussed: ?? Loss weight ?? Elevate head of bed 4-6 inches when sleeping ?? Avoid eating within 3 hours before bedtime. ?? Maintain upright posture during and after eating. ?? Avoid clothing that is tight in the abdominal area. ?? Minimize narcotics ?? Avoid foods that make symptoms worse (examples include coffee, chocolate, alcohol, peppermint, and fatty foods) . Eat 5-6 small meals throughout the day instead of 2-3 large meals. ?? Do not use tobacco products ?? Minimize alcohol use ?? Avoid lying down for 3 hours after a meal - Order abdominal x-ray to assess for underlying constipation. Will initiate bowel regimen if abdominal x-ray demonstrates constipation. -Follow-up office visit in 8 weeks for GERD and IBS-C. Future Tests Future scheduled test information is unavailable Pending Tests Pending diagnostic test information is unavailable Future Visits Future appointment information is unavailable Future Procedures Future procedure information is unavailable Future Medications Future medication information is unavailable Patient Instructions Patient instructions are unavailable
[2025-09-24 00:37] VITALS: BP 141/96; PULSE 95; TEMP 36.7; O2SAT 96; BMI 32.6
--- NOTE | 2025-09-24 01:01 | ED.ABDPAIN1 ---
HPI - Abdominal Pain General Chief Complaint: Abdominal Pain Stated Complaint: constipation Time Seen by Provider: 09/24/25 00:46 History of Present Illness HPI narrative: cc - constipation Pt saw a clinical abstractor - who noted constipation on abd xrays - and pt was instructed to give herself a colonoscopy prep in order to treat her constipation. She waited four days instead of starting right away. Then she tried to perform the miralax prep. But she was also eating solid foods - she did not know she was supposed to have a clear liquid diet. She did not take any laxatives or stool softeners. She also has not been increasing her oral fluid intake. Now she presents to the ED complaining that she has not passed stool in 36-48 hours. She is emotional and asking am I going to of sepsis from this? Fever or chills. No nausea or vomiting. No blood in urine. No recent history of blood in stool. Passed flatus earlier in the day. She passed small amounts of stool 1 day ago Patient's only prior abdominal surgery is a . No history of bowel obstruction. Related Data Home Medications ?Medication ?Instructions ?Recorded ?Confirmed fluoxetine 40 mg capsule 40 mg PO DAILY 09/24/25 09/24/25 Previous Rx's ?Medication ?Instructions ?Recorded bisacodyl 5 mg tablet,delayed 5 mg PO DAILY PRN constipation 2 09/24/25 release (Dulcolax (bisacodyl)) days #10 tabs polyethylene glycol 3350 17 17 g PO DAILY 4 days #68 grams 09/24/25 gram/dose oral powder (Miralax) Allergies Allergy/AdvReac Type Severity Reaction Status Date / Time clarithromycin (From Biaxin) AdvReac Mild Nausea Verified 09/24/25 00:37 PFSH PFSH Social History Little interest or pleasure in doing things: not at all Feeling down, depressed, or hopeless: not at all Exam Narrative Exam Narrative: Nurses notes and vital signs reviewed and patient is not hypoxic. afebrile General: Well-appearing and in no apparent distress. Skin: Warm, dry, no pallor noted. Eye: Pupils are equal, round and EOMI. No scleral icterus. Ears, Nose, Mouth, and Throat: Oral mucosa is moist Cardiovascular: Regular Rate and Rhythm without murmur, gallop or rub. Respiratory: No accessory muscle use or respiratory distress. Lungs are clear to auscultation, no wheezing, rales or rhonchi GI: Abdomen is soft, non-distended. Normal bowel sounds. No masses appreciated. No tenderness to palpation. No rebound, guarding, or rigidity noted. Neurological: A&O x4. No cranial nerve dysfunction observed. No truncal ataxia. Moves all extremities. Sensation intact. Psychiatric: Cooperative and interactive. Normal mood and affect. Constitutional Vital Signs, click to edit/add: Last Vital Signs Temp 98.1 F 09/24/25 00:37 Pulse 95 H 09/24/25 00:37 Resp 20 09/24/25 00:37 BP 141/96 H 09/24/25 00:37 Pulse Ox 96 09/24/25 00:37 O2 Del Method Room Air 09/24/25 00:37 Course Vital Signs Vital signs: Vital Signs Temperature 98.1 F 09/24/25 00:37 Pulse Rate 95 H 09/24/25 00:37 Respiratory Rate 20 09/24/25 00:37 Blood Pressure 141/96 H 09/24/25 00:37 Pulse Oximetry 96 09/24/25 00:37 Oxygen Delivery Method Room Air 09/24/25 00:37 Temperature 98.1 F 09/24/25 00:37 Pulse Rate 95 H 09/24/25 00:37 Respiratory Rate 20 09/24/25 00:37 Blood Pressure 141/96 H 09/24/25 00:37 Pulse Oximetry 96 09/24/25 00:37 Oxygen Delivery Method Room Air 09/24/25 00:37 MDM - Abdominal Pain MDM Narrative Medical decision making narrative: Patient was given oral Dulcolax and a soapsuds enema. Nurse also tried manual disimpaction but there was nothing distally found to remove. The patient was instructed to push but repeatedly states that she is afraid something bad is going to happen . Some sort of anxiety related or psychological issue going on as the patient's responses are disproportionate to the actual situation. She was able to pass liquid stool and - later - soft stool with some small chunks of formed stool. I printed off a copy of the [facility]'s MiraLAX and Gatorade bowel prep protocol which is very different than what she had received from the local clinical abstractor. Prescribed another bottle of MiraLAX and also some more Dulcolax pills. We talked about the importance of a clear liquid diet until she passes her stool. He was given reassurance and discharged home. Discharge Plan Discharge Chief Complaint: Abdominal Pain Clinical Impression: Constipation Patient Disposition: Home, Self-Care Time of Disposition Decision: 02:01 Prescriptions / Home Meds: New polyethylene glycol 3350 [Miralax] 17 gram/dose powder 17 g PO DAILY 4 Days Qty: 68 0RF bisacodyl [Dulcolax (bisacodyl)] 5 mg tablet,delayed release (DR/EC) 5 mg PO DAILY PRN (Reason: constipation) 2 Days Qty: 10 0RF No Action fluoxetine 40 mg capsule 40 mg PO DAILY Print Language: Somali Instructions: Constipation (ED) Referrals: VARUN GLASS [Primary Care Provider, Family Practice] - 1 week Discharge Date/Time: 09/24/25 02:19
--- OUTSIDE RECORDS SUMMARY | 2025-09-24 01:17 | XMS_ITS | Clinical Summary ---
Author Organization [facility] Address [address] [place] [id number] Care Team Providers Care Encoding Clerk Name Role Phone Amanuel Kevin DO Primary Care Provider [phone] Kenroy Sharma DO Unavailable [phone] Allergies Active AllergyReactionsCriticalityNoted DateCommentsClarithromycinGI Upset 11/24/2019 Medications MedicationSigDispense QuantityRefillsLast FilledStart DateEnd DateStatus ALPRAZolam (XANAX) 1 mg tablet as needed.10/07/2019Active cyclobenzaprine (FLEXERIL) 10 mg tablet daily at bedtime.11/17/2019Active FLUoxetine HCl (PROZAC) 40 mg capsule once daily.10/07/2019Active betamethasone dipropionate, augmented (DIPROLENE) 0.05 % cream Apply to affected area two times a day. 50 g 3Active Social History Tobacco UseTypesPacks/DayYears UsedDateSmoking Tobacco: FormerCigarettes Smokeless Tobacco: NeverAlcohol UseStandard Drinks/WeekCommentsYes0 (1 standard drink = 0.6 oz pure alcohol)Social/OccPHQ-2AnswerDate RecordedPHQ-2 score0 05/23/2020Area Deprivation IndexAnswerDate RecordedNational Score (1-100), lower number is lower riskNot on file09/05/2020State Score (1-10), lower number is lower riskNot on file09/05/2020Data from: https://www.neighborhoodatlas.medicine.[facility].edu/. Last address used for calculationNot on file09/05/2020CommentsUnknownSex and Gender InformationValueDate RecordedSex Assigned at BirthNot on fileLegal SexFemale 12/04/2015 2:10 PM ESTGender IdentityNot on fileSexual OrientationNot on file Last Filed Vital Signs Vital SignReadingTime TakenCommentsBlood Ecleuytq912/8108 12:01 PM EDT Brqbq4238 12:01 PM EDTTemperature--Respiratory Djra609805/24/2020 12:01 PM EDTOxygen Saturation--Inhaled Oxygen Concentration--Ubspci61 kg (194 lb 1.6 oz) 05/24/2020 12:01 PM SURQqbtga957.6 cm (5' 4 )05/24/2020 12:01 PM EDTBody Mass Index33.3208 12:01 PM EDT Plan of Treatment Health MaintenanceDue DateLast DoneCommentsAnxiety Ltzfknqda54/27/1993Depression Xiguubcqz21/27/1993HIV Jjvahmhwh83/27/1993Hepatitis C Voxrvlrsw46/27/1993 DTaP,Tdap,Td Vaccine (1 - Tdap)1994Cervical Cancer Ilqneceyk31/27/1996 Mammogram Myltcecwr36/27/2015CT Jaljhgilvply26/27/2020Cologuard (FIT-DNA) 02/22/20201184Dubzhtpizli06/27/2020Colorectal Cancer Fmitygplw63/27/2020Diabetes Fwxnadbqg93/27/2020Fecal Occult Blood02/22/2020Lipid Hpsooogor79/27/2020 Kujwupeodazvv92/27/2020Pneumococcal Vaccine: 50+ (1 of 1 - PCV)2025 Shingrix Vaccine (1 of 2)5Covid-19 Vaccine (1 - 2024- season) 2025Influenza Vaccine (#1)51, 09/22/2019RSV Vaccine (1 - 1-dose 75+ series)2050Hepatitis B CoknexsIncrlbmlk80/20/2003, 06/24/2002, 05/06/2002 Insurance Care Teams Team MemberRelationshipSpecialtyStart DateEnd Date Amanuel Kevin DO [address] [place] [address] PCP - [facility]12/04/15 Kenroy Sharma DO [address] [place] [address] ReferringNeurolog10/26/19
--- OUTSIDE RECORDS SUMMARY | 2025-09-24 01:17 | XMS_ITS | CCD ---
Author Organization [facility] Team Providers Care Doorshaker Name Role Phone QUAN, DR BOND Primary Care Unavailable QUAN, DR BOND Consulting Unavailable QUAN, DR BOND Attending Unavailable QUAN, DR BOND Admitting Unavailable QUAN, DR BOND Admitting Unavailable QUAN, DR BOND Primary Care Unavailable QUAN, DR BOND Attending Unavailable Varun Glass Primary Care Physician [phone] Varun Glass Unavailable Elva Arredondo Unavailable Ector Moore Unavailable Jose Martin Herman Unavailable DO Varun Glass Primary Care Provider TANIA Catalan Attending Provider [phone] DO Varun Glass Primary Care Provider TANIA Catalan Attending Provider MD Jose Martin Herman Attending Provider [phone] Rhonda Garcia Attending Unavailable Rhonda Garcia Attending Unavailable MD Michelle Clancy Admitting Unavailable MD Michelle Clancy Attending Unavailable Varun Glass Referring Unavailabl e MD Michelle Clancy Admitting Unavailable MD Michelle Clancy Attending Unavailable DO Varun Glass Primary Care Provider [phone] DO Varun Glass Attending Provider Lisa Warner Unavailable DO Varun Glass Primary Care Provider DO Yesi Clinton Attending Provider [phone] DO Varun Glass Attending Provider GUY ALBA Attending Unavailable VARUN GLASS Primary Care Unavailable DO Varun Glass Primary Care Provider Self, Referral Attending Provider Unavailable DO Varun Glass Primary Care Provider [phone] DO Varun Glass Attending Provider [phone] DO Varun Glass Referring Provider Varun Glass MD Primary Care Provider Varun Glass DO Primary Care Provider Varun Glass DO Attending Provider [phone] Community, Outreach Attending Provider Varun Glass DO Primary Care Provider [phone] Varun Glass DO Attending Provider [phone] Varun Glass DO Primary Care Provider Self, Referral Attending Provider Unavailable Varun Glass Primary Care Unavailable Varun Glass Attending Unavailable Varun Glass Admitting Unavailable Varun Glass Admitting Unavailable Varun Glass Primary Care Unavailable Varun Glass Attending Unavailable Varun Glass Primary Care Unavailable Self, Referral Admitting Unavailable Self, Referral Attending Unavailable Varun Glass Primary Care Unavailable Community, Outreach Admitting Unavailable Community, Outreach Attending Unavailable Varun Glass DO Primary Care Provider Varun Glass DO Attending Provider [phone] Varun Glass DO Primary Care Provider [phone] Varun Glass DO Attending Provider Varun Glass MD Primary Care Provider [phone] VARUN GLASS Referring Unavailable YESI CLINTON Attending Unavailable Varun Glass DO Primary Care Provider [phone] Varun Glass DO Attending Provider [phone] Allergies Allergy ClassificationReported Allergen(s)Allergy TypeDate of OnsetReaction(s) Facility (20 sources)Clarithromycin; Translations: [clarithromycin]Drug Rcstpzf87-22-6792 Nausea (finding)[facility] Other (20 sources)buPROPionDrug Allergyfelt off while on the higher dose, able to tolerate lower dosert [facility] Other (20 sources)AdipexPropensity to adverse reactionsfelt jitteryNort [facility] Other (20 sources)topiramateDrug Myqdomw96-70-5076Ftdohpy, Unknown ReactionHolzer Hospital (20 sources)buPROPionDrug Djayziu43-53-9393nekf off on itHolzer Hospital (4 sources)ClarithromycinPropensity to adverse -70-7764JZ intolerance [facility] (1 source)buPROPionDrug Blxbjey45-16-6284TkcdiyariHolzer Hospital Repository (1 source)ClarithromycinDrug Phcuyyf84-89-9715WpobddasmHolzer Hospital Repository (1 source)topiramateDrug Xjftfhf54-38-3007VpypazdooHolzer Hospital Repository Medications Current Medications MedicationDrug Class(es)DatesSig (Normalized)Sig (Original)[id number] 200 actuat albuterol 0.09 mg/actuat metered dose inhaler (20 sources)beta2-Adrenergic AgonistStart: 02-01-2024 End: 11-52-6209Zdpxbqzow Sulfate 90 mcg/actuation HFA aerosol inhaler Active 2 INH INHALATION Four times daily November 07, 2024 4:56pm Complies with drug therapyStart: 77-12-2814Ugwrrwrjt Sulfate 90 mcg/actuation HFA aerosol inhaler Active INHALATION January 31, 2024 11:00pm FreeTextSi inhalations Inhalation qid; Note: Source Status: Taking; Refills: 1; Provider: Quan Bond CStart: 79-35-4969Zenwlrazb Sulfate HFA 108 (90 Base) MCG/ACT 2 inhalations Inhalation qid Jul, ActiveStart: 62-32-0996Yljwdvdzz Sulfate HFA 108 (90 Base) MCG/ACT 2 inhalations Inhalation qid Jul, ActiveALPRAZolam 1 mg oral tablet (20 sources)BenzodiazepineStart: 09-70-7783RTAKBCqnnz (Xanax) 1 MG tablet 05/01/2025 ActiveStart: 02-01-2024 End: 97-88-6076Xtgfqvphga 1 mg tablet Discontinued 1 MG PO EVERY 8-12 HOURS as needed for anxiety 30 10 0 January 11, 2025 9:15am [place] 4th, 2025 9:56am Anxiety Anxiety disorder, unspecifiedStart: 94-36-0026Abubn 1 MG 1 tablet Orally q8-12 hrs prn Apr, ActiveStart: 54-74-5612Jxafw 1 MG 1 tablet Orally q8-12 hrs prn for 10 days January, ActiveStart: 22-04-4022Nhtyj Oral, TID, Refills(s) 0 Start Date: 11/27/21 Status: OrderedStart: 10-12-2019 End: 64-47-2653jpoa 1 tablet by mouth twice daily as needed for anxiety Alprazolam (Xanax) 0.5 mg Tablet Discontinued 0.5 MG PO Twice daily as needed for Anxiety October 12, 2019 12:00am February 01, 2024 4:44pmStart: 01-18-2018 Xanax 1 MG 1 tablet Orally q8-12 hrs prn for 10 days Dec, ActiveStart: 29-49-3421Fgdqa: 11-22-2017 End: 90-47-8701xuvb 1 tablet by mouth three times daily as needed for anxiety Alprazolam 0.25 mg tablet Discontinued 1 TAB PO Three times daily as needed for Anxiety November 22, 2017 12:00am October 12, 2019 12:00pmaspirin 81 mg delayed release oral tablet (20 sources)Platelet Aggregation Inhibitor, Nonsteroidal Anti-inflammatory Drug Start: 17-55-9476Kfekhbx (Jie Low Dose Aspirin) 81 mg tablet,delayed release (DR/EC) Active 81 MG PO Daily 2023 11:00pm Complies with drug therapyStart: 46-41-7360oyei 1 tablet by mouth once dailyAspirin 81 81 MG 1 tablet Orally Once a day Feb, ActiveStart: 02-27-2022 End: 71-52-8543zaox 1 tablet by mouth once dailyAspirin (Children's Aspirin) 81 mg Tablet,Chewable Discontinued 81 MG PO Daily 30 0 February 26, 2022 11:00pm September 17, 2022 7:57amtake 1 tablet by mouth every twenty-four hours cetirizine hydrochloride 10 mg oral tablet (20 sources)Histamine-1 Receptor AntagonistStart: 99-59-8952shyj 1 tablet by mouth once daily as neededdocusate sodium 100 mg oral capsule (20 sources)Start: 02-01-2024 End: 31-44-0533xaox 1 capsule by mouth once dailyDocusate Sodium 100 mg capsule Active 100 MG PO Daily February 01, 2024 4:55pm Complies with drug therapyStart: 02-11-3412zfze 1 capsule by mouth every twenty-four hoursColace 100 MG 1 capsule Orally Once a day prn Sep, ActiveDULoxetine 60 mg delayed release oral capsule (17 sources)Serotonin and Norepinephrine Reuptake InhibitorStart: 02-03-2023 End: 55-91-0095ijif 1 capsule by mouth every twenty-four hoursDULoxetine HCl 60 MG 1 capsule Orally Once a day for 90 days January, ActiveStart: 02-03-2023 take 1 capsule by mouth every twenty-four hoursDULoxetine HCl 30 MG 1 capsule Orally Once a day January, ActiveElderberry preparation (14 sources)Start: 20-72-9571dzbvoiqcqk Refill(s) 0 Start Date: 11/27/21 Status: OrderedElderberry Activefluticasone propionate 0.05 mg/actuat metered dose nasal spray (20 sources)CorticosteroidStart: 55-71-0712lopn 2 spray(s) nasal route once dailyFluticasone Propionate 50 mcg/actuation spray,suspension Active 2 SPRAY INTRANASAL Daily January 31, 2024 11:00pm FreeTextSi sprays in each nostril Nasally Once a day; Note: Source Status: Not-Taking\PRNprn; Refills: 3; Provider: Quan Treadwell Complies with drug therapyStart: 67-68-1631anrr 2 spray(s) nasal route once daily as neededFluticasone Propionate 50 MCG/ACT 2 sprays in each nostril Nasally Once a day for 90 days prn Oct, Not-Taking/PRNStart: 35-56-6413azsc 2 spray(s) nasal route once daily as needed Fluticasone Propionate 50 MCG/ACT 2 sprays in each nostril Nasally Once a day for 90 days prn Oct, Not-TakingStart: 79-31-3110opokbsvvyie methylbromide 0.3 mg/ml / HYDROcodone bitartrate 1 mg/ml oral solution (5 sources)Opioid Agonist, Cholinergic Muscarinic AgonistStart: 06-16-2023 HYDROcodone Bit-Homatrop MBr 5-1.5 MG/5ML 5 mL as needed Orally every 6 hrs May, Syxmoc35 hr mirabegron 25 mg extended release oral tablet (1 source)beta3-Adrenergic AgonistStart: 78-84-9802rzbh 1 tablet by mouth once dailyMyrbetriq 25 mg oral tablet, extended release 25 mg = 1 tab(s), Oral, Daily, # 30 tab(s), Refills(s) 3, Pharmacy: [facility] [id number], 162, cm, 11/27/21 10:15:00 EST, Height/Length Dosing, 88.1, kg, 11/27/21 10:15:00 EST, Weight Dosing Start Date: 11/27/21 Status: OrderedMultivitamin preparation (11 sources)take 1 tablet by mouth once dailyMultivitamin - 1 tablet Orally Once a day Activenitroglycerin 0.4 mg sublingual tablet (6 sources)Nitrate VasodilatorStart: 18-62-9433Mvluqftztupbe 0.4 mg tablet, sublingual Active 0.4 MG SUBLINGUAL Q5M as needed for chest pain 25 0 November 07, 2024 12:00am do not exceed 3 doses Complies with drug therapyomeprazole 20 mg delayed release oral capsule (20 sources)Proton Pump InhibitorStart: 02-01-2024 End: 52-92-2625Hvkjavcbrn 20 mg capsule,delayed release(DR/EC) Active 20 MG PO .COMPLEX September 30, 2024 9:58am 20 mg orally 1 capsule 30 minutes before morning meal; Complies with drug therapyStart: 97-48-7452ddfvnzzevbnr 40 mg delayed release oral tablet (4 sources)Proton Pump Inhibitor End: 77-81-5446uazr 1 tablet by mouth before mealtimepantoprazole (ProtoNix) 40 MG EC tablet Take 40 mg by mouth in the morning. Take before meals. Do not crush, chew, or split.. 07/07/2025 Discontinued (Therapy completed)phentermine hydrochloride 37.5 mg oral tablet (9 sources)Sympathomimetic Amine AnorecticStart: 22-96-1804xpqc 1 tablet by mouth once daily in the morningAdipex-P 37.5 MG 1 tablet Orally qd am for 30 days Aug, ActiveStart: 76-40-5374ciws 1 tablet by mouth once daily in the morningAdipex-P 37.5 MG 1 tablet Orally qd am for 30 days Jul, ActiveStart: 84-93-4934scuz 1 tablet by mouth once daily in the morningAdipex-P 37.5 MG 1 tablet Orally qd am for 30 days Jun, ActiveStart: 12-29-2022 take 1 tablet by mouth every twenty-four hoursAdipex-P 37.5 MG 1 tablet Orally Once a day for 30 days Dec, ActiveStart: 78-63-3458zhyg 1 tablet by mouth every twenty-four hoursAdipex-P 37.5 MG 1 tablet Orally Once a day for 30 days Nov, Activesemaglutide 0.6 mg (9 sources)Start: 79-95-2036baduum 0.6 mg by subcutaneous injection every week semaglutide 0.6 mg Active 0.5 ML SUBCUT .once weekly 2 August 01, 2024 12:00am Complies with drug therapyStart: 11-26-9105mogwwm 0.6 mg by subcutaneous injection every weeksemaglutide 0.6 mg Active 0.5 ML SUBCUT .once weekly August 01, 2024 1:00am Complies with drugtherapyStart: 97-43-9303uklkxd 0.6 mg by subcutaneous injection every weeksemaglutide 0.6 mg Active 0.5 ML SUBCUT .once weekly August 01, 2024 1:00amStart: 09-43-1637zxzzcq 0.6 mg by subcutaneous injection every weeksemaglutide 0.6 mg Active 0.5 ML SUBCUT .once weekly August 01, 2024 12:00amSpacer/Aero-Holding Chambers - (3 sources)Start: 98-46-3178Spskmn/Aero-Holding Chambers - as directed with inhaler R05.9 Jul, ActiveZanaflex (14 sources)Central alpha-2 Adrenergic AgonistStart: 14-43-1220Jqukeciq Oral, Refills(s) 0 Start Date: 11/27/21 Status: Orderedtake 1 tablet by mouth every twenty-four hoursVitamin C 1000 MG (20 sources)take 1 tablet by mouth once dailytake 1 tablet by mouth once daily Vitamin C 1000 MG 1 tablet Orally Once a day ActiveVitamin D (3 sources)Start: 94-88-3816Kraquzg D International_Unit, Oral, qWeek, Refills(s) 0 Start Date: 11/27/21 Status: Ordered Completed/Discontinued Medications MedicationDrug Class(es)DatesSig (Normalized)Sig (Original)amoxicillin 875 mg / clavulanate 125 mg oral tablet (18 sources)Penicillin-class AntibacterialStart: 06-12-2025 End: 44-27-6591pwzj 1 tablet by mouth twice daily at mealtimeAmoxicillin-Pot Clavulanate 875-125 mg tablet Discontinued 1 TAB PO Twice daily 20 10 0 June 11, 2025 11:00pm August 04, 2025 11:11am with foodStart: 09-30-2024 End: 75-78-0064gazx 1 tablet by mouth twice daily at mealtimeAmoxicillin-Pot Clavulanate 875-125 mg tablet Discontinued 1 TAB PO Twice daily 14 7 0 September 12:00am November 07, 2024 4:49pm with foodStart: 79-08-9881qcaa 1 tablet by mouth twice daily at mealtimeAmoxicillin-Pot Clavulanate 875-125 MG 1 tablet Orally bid with food May, ActiveStart: 75-56-3332Ufmlx: 22-50-2170eiuk 1 tablet by mouth twice daily at mealtimeAmoxicillin-Pot Clavulanate 875-125 MG 1 tablet Orally bid with food for 10 day(s) Jul, Activeascorbic acid 100 mg oral tablet (20 sources)Vitamin CStart: 09-17-2022 End: 91-10-9413vroz 1 tablet by mouth once dailyAscorbic Acid (Vitamin C) (Vitamin C) 100 mg tablet Discontinued 100 MG PO Daily February 01, 2024 4:42pm February 01, 2024 4:54pmStart: 56-55-4223Gomyncx C Daily, Refills(s) 0 Start Date: 11/27/21 Status: Orderedtake 1 tablet by mouth every twenty-four hoursVitamin C 1000 MG 1 tablet Orally Once a day ActiveAspir-81 (10 sources)Aspir-81 Tff-MxcqenFziub-09 Activeatorvastatin 20 mg oral tablet (17 sources)HMG-CoA Reductase InhibitorStart: 02-27-2022 End: 61-52-3462urgp 1 tablet by mouth once daily in the eveningAtorvastatin 20 mg Tablet Discontinued 20 MG PO Every evening 30 0 February 26, 2022 11:00pm September 17, 2022 7:57am24 hr buPROPion hydrochloride 150 mg extended release oral tablet (20 sources)AminoketoneStart: 02-01-2024 End: 92-86-8815tyak 1 tablet by mouth once daily in the morningBupropion Hcl (Wellbutrin Xl) 150 mg tablet extended release 24 hr Discontinued 150 MG PO Every morning 90 1 February 01, 2024 5:27pm February 12, 2024 12:18pmStart: 01-27-2023 take 1 tablet by mouth every twenty-four hoursWellbutrin XL 150 MG 1 tablet in the morning Orally Once a day for 30 days January, ActiveStart: 11-22-2017 End: 33-75-6176amyg 1 tablet by mouth once dailyBupropion Hcl 300 mg tablet extended release 24 hr Discontinued 300 MG PO Daily November 22, 201712:00am October 12, 2019 12:00pmcefTRIAXone (20 sources)Cephalosporin AntibacterialStart: 66-24-3070Vnzhbnfv 500 mg Nov, 1 grmcholecalciferol 0.01 mg oral capsule (20 sources)Vitamin DStart: 09-17-2022 End: 71-90-3235amus 1 capsule by mouth once dailyCholecalciferol (Vitamin D3) (Vitamin D3) 10 mcg (400 unit) Capsule Discontinued 10 MCG PO Daily September 17, 2022 12:00am February 01, 2024 4:42pmStart: 08-43-5485ipmk 1 tablet by mouth every twenty-four hoursVitamin D 50 MCG (2000 UT) 1 tablet Orally Once a day Nov, Activecyclobenzaprine (11 sources)Muscle Relaxanttake 1 tablet by mouth at bedtimeFlexeril 10mg 1 tablet Oral at bedtime ActiveFLUoxetine 40 mg oral capsule (20 sources)Serotonin Reuptake InhibitorStart: 10-24-2024 End: 14-29-2992vhfy 1 capsule by mouth once daily in the morningFluoxetine (Prozac) 40 mg capsule Discontinued 40 MG PO Every morning January 27, 2025 7:11am May 30, 2025 9:07amStart: 09-30-2024 End: 80-15-8103annp 1 capsule by mouth once dailyFluoxetine (Prozac) 20 mg capsule Discontinued 20 MG PO Daily September 30, 2024 12:00am October 31, 2024 9:38amStart: 67-93-6539duti 1 capsule by mouth once dailyProzac 20 mg Cap 20 mg = 1 cap(s), Oral, Daily, Refills(s) 0 Start Date: 11/27/21 Status: Ordered Start: 58-82-2420lkdg 1 capsule by mouth every twenty-four hoursStart: 10-12-2019 End: 10-69-6113npis 1 capsule by mouth once dailyFluoxetine (Prozac) 40 mg Capsule Discontinued 40 MG PO Daily October 12, 2019 12:00am February 26, 2022 2:22pmgabapentin 300 mg oral capsule (20 sources)Anti-epileptic AgentStart: 21-83-1504Xaejwkxxxe 100 MG 1 capsule in the AM Orally and 1 capsule in the mid afternoon (2-3 PM) for 30 days Apr, Not-TakingStart: 09-17-2022 End: 99-74-1378kopi 1 capsule by mouth once dailyGabapentin 300 mg Capsule Discontinued 300 MG PO Daily September 17, 2022 12:00am February 01, 2024 4:43pm Start: 77-26-4917nygt 1 capsule by mouth three times dailygabapentin 300 mg Cap 300 mg = 1 cap(s), Oral, TID, START 1 CAP qhs, INCREASE BY 1 CAP Q5DAYS TILL D OSE IS 1 CAP TID, # 90 cap(s), Refills(s) 0, Pharmacy: [facility] [id number], 162, cm, 09/11/22 13:50:00 EST, Height/Length Dosing, 88.4, kg, 09/11/22 13:50:00 EST, Weigh... Start Date: 09/11/22 Status: Orderedibuprofen 800 mg oral tablet (20 sources)Nonsteroidal Anti-inflammatory DrugStart: 02-01-2024 End: 77-96-4576Cbmqiwxfd 800 mg tablet Discontinued 800 MG PO EVERY 8-12 HOURS as needed January 31, 2024 11:00pm March 11, 2024 9:15amStart: 53-81-1191yiwp 1 tablet by mouth at mealtime as neededIbuprofen 800 MG 1 tablet with food or milk as needed Orally q8-12 hrs prn January, Not-TakingStart: 13-79-2057zysu 1 tablet by mouth at mealtime as neededStart: 95-30-6629hinpxumbw 15 mg oral tablet (17 sources)Nonsteroidal Anti-inflammatory DrugStart: 03-11-2024 End: 91-87-7293xdol 1 tablet by mouth once daily as neededMeloxicam 15 mg tablet Discontinued 15 MG PO Daily as needed September 30, 2024 9:49am May 01, 2025 9:34am with food24 hr phentermine 7.5 mg / topiramate 46 mg extended release oral capsule (20 sources)Sympathomimetic Amine AnorecticStart: 02-26-2022 End: 66-70-8004xowl 1 capsule by mouth once dailyPhentermine-Topiramate (Qsymia) 7.5-46 mg Capsule, Er Multiphase 24 Hr Discontinued 1 CAP PO Daily February 25, 2022 11:00pm September 17, 2022 7:57amStart: 40-54-5361ojuy 1 capsule by mouth every twenty-four hoursQsymia 3.75-23 MG 1 capsule Orally Once a day for 14 days Nov, ActiveStart: 91-30-6178pccl 1 capsule by mouth every twenty-four hoursQsymia 7.5-46 MG 1 capsule Orally Once a day for 30 days Nov, Not-TakingpredniSONE 20 mg oral tablet (20 sources)Start: 06-12-2025 End: 92-05-4160tefw 3 tablets by mouth once daily at mealtime, then take 2 tablets by mouth once daily, then take 1 tablet by mouth once daily at mealtime Prednisone 20 mg tablet Discontinued 0 PO .with food or milk 18 9 0 June 11, 2025 11:00pm August 04, 2025 11:11am take 3 tablets a day x3 days, 2 tabs a day x3 days and then 1 tab a day x3 days orally WITH FOOD OR MILK;Start: 02-01-2024 End: 60-91-7356qdah 3 tablets by mouth once daily at mealtime, then take 2 tablets by mouth once daily, then take 1 tablet by mouth once daily at mealtime Prednisone 20 mg tablet Discontinued 0 PO .with food or milk 18 9 0 February 01, 2024 5:27pm February 9:15am take 3 tablets a day x3 days, 2 tabs a day x3 days and then 1 tab a day x3 days orally WITH FOOD OR MILK;valACYclovir 1000 mg oral tablet (2 sources)Herpesvirus Nucleoside Analog DNA Polymerase Inhibitor, Herpes Simplex Virus Nucleoside Analog DNA Polymerase Inhibitor, Herpes Zoster Virus Nucleoside Analog DNA Polymerase InhibitorStart: 06-12-2025 End: 45-07-7757Mokjrvmelzax (Valtrex) 1 gram tablet Discontinued 1000 MG PO Three times daily 21 7 0 June 11, 2025 11:00pm August 04, 2025 11:12am 24 hr venlafaxine 37.5 mg extended release oral capsule (20 sources)Serotonin and Norepinephrine Reuptake InhibitorStart: 10-31-2022 End: 76-74-6152egpt 1 capsule by mouth once dailyVenlafaxine (Effexor Xr) 37.5 mg capsule,extended release 24hr Discontinued 37.5 MG PO Daily 30 February 29, 2024 11:20am September 30, 2024 10:17amStart: 09-17-2022 End: 93-82-3326nglr 1 tablet by mouth once dailyVenlafaxine (Effexor) 25 mg Tablet Discontinued 25 MG PO Daily September 17, 2022 12:00am January 4:43pmtake 1 capsule by mouth every other day at mealtimeEffexor XR 75 MG 1 capsule with food Orally qod Not-Takingtake 1 tablet by mouth once daily at mealtimeEffexor 37.5 MG 1 tablet with food Orally Once a day for 30 days Not-Takingtake 1 capsule by mouth every twenty-four hoursEffexor XR 75 MG 1 capsule with food Orally Once a day Active Problems Active Problems Problem ClassificationProblemDateDocumented DateEpisodic/ChronicAdjustment disorders (20 sources)Feeling stressed; Translations: [Reaction to severe stress, unspecified]ChronicAllergic reactions (1 source)Dermatitis, unspecifiedEpisodicAnxiety disorders (20 sources)Anxiety; Translations: [Anxiety disorder, unspecified]Onset: 07-26-2021 Resolved: 01-46-3807RzcxpxrQnfblbp dysrhythmias (16 sources)Palpitations; Translations: [Palpitations]49-43-9769Njpregxg Contraceptive and procreative management (4 sources)Intrauterine contraceptive device in situ; Translations: [Encounter for routine checking of intrauterine contraceptive device]01-94-8034Ujqbmihf Diabetes mellitus without complication (16 sources)Hyperglycemia, unspecified; Translations: [Hyperglycemia]Onset: 10-25-2021 Resolved: 53-70-8005OitwrsgpKuymxfiot of lipid metabolism (20 sources)Hyperlipidemia; Translations: [Hyperlipidemia, unspecified]Onset: 10-25-2021 Resolved: 38-20-3155XxyckwfTdnetbdogu disorders (20 sources)Gastroesophageal reflux disease without esophagitis; Translations: [Gastro-esophageal reflux disease without esophagitis]Onset: 10-25-2021 Resolved: 23-64-1052ByzzkkwJutktpqgvqwdc symptoms and ill-defined conditions (4 sources)Stress incontinence (female) (male); Translations: [Genuine stress incontinence]Onset: 67-32-4134LxsvtnnWrxqfgmpcjyop symptoms and ill-defined conditions (18 sources)Sensation as if bladder still full; Translations: [Feeling of incomplete bladder emptying]Onset: 10-25-2021 Resolved: 98-55-3151CkphsvwkWgezeupc; including migraine (17 sources)Headache; Translations: [Headache]Onset: 07-26-2021 Resolved: 37-36-1733LpvpmsnlKoaarkz and fatigue (20 sources)Fatigue; Translations: [Other fatigue]Onset: 140897-36-6974 EpisodicMenopausal disorders (2 sources)Perimenopausal state; Translations: [Menopausal and female climacteric states]50-03-8930RtcjwciMqsfpbbfn disorders (10 sources)Irregular menstruation, unspecified; Translations: [Irregular periods]Onset: 553728-49-1424AhwwtadPlngbeajhjpcw mental health disorders (20 sources)Feeling of lump in throat; Translations: [Other somatoform disorders]Onset: 07-26-2021 Resolved: 15-59-1729MytojcpYefi disorders (3 sources)Depressive jfdnkhyq43-21-4064DccaczrWszfblciomo chest pain (13 sources)Chest pain, unspecified; Translations: [Chest pain]EpisodicOther aftercare (3 sources)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; Translations: [Long-term (current) use of other medications]Onset: 10-25-2021 Resolved: 51-25-1365OezytmyyUicns aftercare (11 sources)Long-term current use of drug therapy; Translations: [Other retirement (current) drug therapy]94-46-7256IjidjysnMvimw circulatory disease (1 source)Hemorrhage, not elsewhere classifiedEpisodicOther connective tissue disease (16 sources)Weakness of face muscles; Translations: [Facial weakness]02-26-2022 EpisodicOther connective tissue disease (2 sources)Pain in left arm; Translations: [Pain in limb]EpisodicOther connective tissue disease (1 source)Pain in leg, unspecifiedEpisodicOther connective tissue disease (11 sources)Pain in left arm; Translations: [Pain in left arm]98-84-4695Oawswkot Other diseases of bladder and urethra (1 source)Detrusor overactivity; Translations: [Overactive bladder]Onset: 37-27-9956EapxnoxLmiaa diseases of bladder and urethra (3 sources)Overactive -99-6745ZzxtcsmGgyvz ear and sense organ disorders (20 sources)Bilateral tinnitus; Translations: [Tinnitus, bilateral]EpisodicOther eye disorders (20 sources)Nystagmus; Translations: [Unspecified nystagmus]ChronicOther gastrointestinal disorders (20 sources)Irritable bowel syndrome; Translations: [Irritable bowel syndrome without diarrhea]ChronicOther gastrointestinal disorders (1 source)Irritable bowel syndrome without diarrheaOnset: 02-14-2022 Resolved: 90-53-2489FpzqpewXjirm gastrointestinal disorders (20 sources)Constipation; Translations: [Constipation, unspecified]09-02-2024 EpisodicOther gastrointestinal disorders (7 sources)Constipation, unspecified; Translations: [Constipation, unspecified] Onset: 10-25-2021 Resolved: 98-98-5748RxkumdfbIrsyx gastrointestinal disorders (2 sources)Other fecal abnormalitiesOnset: 02-14-2022 Resolved: 58-88-4332ImjrcathXnkda lower respiratory disease (7 sources)Difficulty breathing; Translations: [Other abnormalities of breathing]28-59-1448HolvkikmGiyft lower respiratory disease (5 sources)Other abnormalities of breathing; Translations: [Other respiratory abnormalities]14-22-3869RnhvcrsmKyyuu nervous system disorders (11 sources)Peripheral nerve disease ; Translations: [Polyneuropathy, unspecified]ChronicOther nervous system disorders (20 sources)Chronic pain; Translations: [Other chronic pain]08-05-4414Printlh Other nervous system disorders (3 sources)Polyneuropathy, unspecifiedChronicOther nervous system disorders (10 sources)Other chronic pain; Translations: [Other chronic pain]ChronicOther nervous system disorders (2 sources)Parageusia; Translations: [PARAGEUSIA]Onset: 08-13-2021 Resolved: 92-53-3596ByhiacgrUkmah nervous system disorders (2 sources)Anosmia; Translations: [ANOSMIA]Onset: 08-13-2021 Resolved: 17-71-5423NnfeotdwVzoaj nervous system disorders (20 sources)Sensory disorder of smell and/or taste; Translations: [Anosmia] EpisodicOther nervous system disorders (20 sources)Loss of taste; Translations: [Parageusia]EpisodicOther nervous system disorders (20 sources)Paresthesia; Translations: [Paresthesia of skin]16-14-5281Giwgdrjc Other nervous system disorders (8 sources)Paresthesia of skin; Translations: [Disturbance of skin sensation] Onset: 02-14-2022 Resolved: 40-03-9553QtduyachOtrqg nervous system disorders (16 sources)Facial paresthesia; Translations: [Paresthesia of skin]02-26-2022 EpisodicOther nervous system disorders (16 sources)Paresthesia of left lower limb; Translations: [Paresthesia of skin] 85-33-1074UmzihafxSquvr non-traumatic joint disorders (1 source)Pain in left hipEpisodicOther nutritional; endocrine; and metabolic disorders (1 source)Obese class I; Translations: [Body mass index (BMI) 33.0-33.9, adult] Onset: 61-58-6364BvxddfoLkbyz nutritional; endocrine; and metabolic disorders (20 sources)Body mass index 30+ - obesity; Translations: [Body mass index (BMI) 34.0-34.9, adult]58-39-1061ObnpvabQhnpy nutritional; endocrine; and metabolic disorders (20 sources)Obesity; Translations: [Obesity, unspecified]ChronicOther nutritional; endocrine; and metabolic disorders (3 sources)Other obesity due to excess calories; Translations: [Obesity, unspecified]06-32-6002EhcwklsEtdcu nutritional; endocrine; and metabolic disorders (7 sources)Obesity caused by energy imbalance; Translations: [Other obesity due to excess calories]46-58-1769NcadfpvVabyw nutritional; endocrine; and metabolic disorders (5 sources)Hypocalcemia; Translations: [Hypocalcemia]48-00-5141PxekjpzKwkfy nutritional; endocrine; and metabolic disorders (20 sources)Weight loss; Translations: [Abnormal weight loss]EpisodicOther nutritional; endocrine; and metabolic disorders (20 sources)Abnormal weight gain; Translations: [Abnormal weight gain]Onset: 07-26-2021 Resolved: 70-44-5842JwvalsedZomqs nutritional; endocrine; and metabolic disorders (1 source)Weight gain; Translations: [Abnormal weight gain]52-22-2452Dxaffmdo Other nutritional; endocrine; and metabolic disorders (12 sources)Weight increased; Translations: [Abnormal weight gain]07-01-2024 EpisodicOther screening for suspected conditions (not mental disorders or infectious disease) (7 sources)Patient encounter status; Translations: [Encounter for screening mammogram for malignant neoplasm of breast]Onset: [id number] Other upper respiratory disease (20 sources)Allergic rhinitis; Translations: [Allergic rhinitis, unspecified] ChronicOther upper respiratory disease (20 sources)Chronic rhinitis; Translations: [Chronic rhinitis]ChronicOther upper respiratory disease (2 sources)Nasal congestion; Translations: [NASAL CONGESTION]Onset: 08-13-2021 Resolved: 78-61-6461CxugpowtPuxeo upper respiratory infections (16 sources)Acute sinusitis, unspecified; Translations: [Acute sinusitis]Onset: 08-26-2021 Resolved: 14-33-4004YvskayniOfcuqj media and related conditions (1 source)Other specified disorders of Eustachian tube, unspecified earEpisodic Residual codes; unclassified (1 source)Personal history of other specified conditionsEpisodicSpondylosis; intervertebral disc disorders; other back problems (18 sources)Inflammation of sacroiliac joint; Translations: [Sacroiliitis, not elsewhere classified]01-99-3232XxglekwYposyjqygrv; intervertebral disc disorders; other back problems (20 sources)Cervicalgia; Translations: [Low back pain]Onset: 10-25-2021 Resolved: 65-52-4334BzuhmgdiOupipihpcdmv (2 sources)CONTACT W/AND (SUSP) EXPOS COVID-19; Translations: [CONTACT W/AND (SUSP) EXPOS COVID-19]Onset: 13-23-2858Lmuyovj tract infections (1 source)Cystitis, unspecified without hematuriaEpisodicViral infection (4 sources)Herpes labialis; Translations: [Herpesviral vesicular dermatitis] 59-81-7913Gvupsvms Past or Other Problems Problem ClassificationProblemDateDocumented DateEpisodic/ChronicHeadache; including migraine (1 source)Headache; including migraineOnset: 10-25-2021 Resolved: 41-89-2381Gheuy nervous system disorders (1 source)Disorder of trigeminal nerve, unspecifiedOnset: 10-25-2021 Resolved: 59-10-0646NdihjcdmCdzsy upper respiratory disease (1 source)Other specified disorders of nose and nasal sinusesOnset: 07-26-2021 Resolved: 20-03-8479LzeomavkFnoxsmt and strains (3 sources)Strain of other muscles, fascia and tendons at shoulder and upper arm level, left arm, initial encounter; Translations: [Sprains and strains of other specified sites of shoulder and upper arm]Onset: 581383-09-1176Dzwixcib Unclassified (1 source)CONTACT W/AND (SUSP) EXPOS COVID-19; Translations: [CONTACT W/AND (SUSP) EXPOS COVID-19]Onset: 86-56-0884Mfzfsafpiiok (4 sources)Lumbar pain M54.50Onset: 02-14-2022 Resolved: 37-17-1943Rvushnkxolan (4 sources)Cough R05.9Viral infection (2 sources)COVID-19; Translations: [COVID-19]Onset: 11-20-2021 Resolved: 08-26-2021 Results Test NameValueInterpretationReference YywsuCsqtvoscI0V with Estimated Average Gluon 20-22-5075Giqmpyv [Mass/Vol]100 mg/dLNoAtrium Health [facility] Comment on above:Result Comment: PERFORMED BY: [place] [address] PATHOLOGIST HEALTH COUNSELOR REEMA SANTA M.D.Performed By: #### LIPID, TSH3, CBC, CMP, A1C WT eA #### [facility] [address] [place] [address] USAA1C with Estimated Average GluOrdered By: Varun Glass on 49-65-7743TaV2d (Bld) [Mass fraction]5.1 %4.3-5.6FUniversity Hospitals Beachwood Medical CenterComment on above:Result Comment: Increased risk for diabetes: 5.7 - 6.4 diabetes: >6.4 glycemic control for adults with diabetes: <7.0Performed By: #### LIPID, TSH3, CBC, CMP, A1C WTH eA #### [place] [id number] USAIncreased risk for diabetes: 5.7 - 6.4diabetes: >6.4glycemic control for adults with diabetes: <7.0Alanine aminotransferase [Enzymatic activity/volume] in Serum or PlasmaOrdered By: Varun Glass on 29-95-4624WSF [Catalytic activity/Vol]Alanine aminotransferase [Enzymatic activity/volume] in Serum or Plasma7Holzer HospitalAlbumin [Mass/volume] in Serum or Plasma by Bromocresol green (BCG) dye binding metho Ordered By: Varun Glass on 70-36-0138Ehbsulv BCG dye [Mass/Vol]Albumin [Mass/volume] in Serum or Plasma by Bromocresol green (BCG) dye binding metho 3.5-5.7FUniversity Hospitals Beachwood Medical CenterAlbumin BCG dye [Mass/Vol]3.9 g/dL 3.5-5.7FUniversity Hospitals Beachwood Medical CenterAlkaline phosphatase [Enzymatic activity/volume] in Serum or PlasmaOrdered By: Varun Glass on 30-44-7096NHS [Catalytic activity/Vol]Alkaline phosphatase [Enzymatic activity/volume] in Serum or Voqtwi27-800MpcrjfyiyHolzer HospitalAspartate aminotransferase [Enzymatic activity/volume] in Serum or PlasmaOrdered By: Varun Glass on 48-66-2043IZY [Catalytic activity/Vol]Aspartate aminotransferase [Enzymatic activity/volume] in Serum or Zjqqyt90-88AjtkguixaHolzer Hospital Basophils Auto (Bld) [#/Vol]Ordered By: Varun Glass on 84-95-9098Onepywjqc (Bld) [#/Vol]Automated basophil count0.0-0.2FUniversity Hospitals Beachwood Medical Center Basophils/100 WBC Auto (Bld)Ordered By: Varun Glass on 08-90-8790Pglcuwgeo/100 WBC (Bld)Automated basophil %.Holzer HospitalBilirubin.total [Mass/volume] in Serum or PlasmaOrdered By: Varun Glass on 27-31-2081Ijpyrbyiz [Mass/Vol]Bilirubin.total [Mass/volume] in Serum or Plasma0.3-1.0Holzer HospitalBlood estimated average glucose determination by estimation from glycated hemoglobinOrdered By: Varun Glass on 07-28-1840Tzsrimh glucose Estimated from glycated hemoglobin (Bld) [Mass/Vol]100 mg/dLHolzer HospitalCalcium [Mass/volume] in Serum or PlasmaOrdered By: Varun Glass on 74-82-2913Idxlnfb [Mass/Vol]Calcium [Mass/volume] in Serum or Plasma Low8.6-10.3FUniversity Hospitals Beachwood Medical CenterCarbon dioxide, total [Moles/volume] in Serum or PlasmaOrdered By: Varun Glass on 42-10-1809QZ7 [Moles/Vol]Carbon dioxide, total [Moles/volume] in Serum or Yeryiq79.0-31.0Holzer HospitalChloride [Moles/volume] in Serum or PlasmaOrdered By: Varun Glass on 03-95-6181Mfxqblwg [Moles/Vol]Chloride [Moles/volume] in Serum or Plasma 98-107Holzer HospitalCholesterol [Mass/volume] in Serum or PlasmaOrdered By: Varun Glass on 39-43-5009Ejikrajnrle [Mass/Vol]Cholesterol [Mass/volume] in Serum or Kycxhs035-844Kbfibvyki Regional Medical CenterComment on above:Chol less than 200 mg/dl low riskChol 201-239 mg/dl borderline riskChol 240 mg/dl and greater high riskCholesterol in HDL [Mass/volume] in Serum or PlasmaOrdered By: Varun Glass on 90-31-8411Pasfcrwlzqi in HDL [Mass/Vol]Serum or plasma high density lipoprotein (HDL) cholesterol zwftijxlblf16-84HqrxsestsHolzer HospitalComment on above:HDL CHOL ATP-III CLASSIFICATION Cardiovascular RiskHDL > or equal to 60 mg/dL LOWHDL < 40 mg/dL HIGHCholesterol in LDL Calc [Mass/Vol]Ordered By: Varun Glass on 88-74-1490Gmsbfiwtbao in LDL [Mass/Vol]Cholesterol in LDL [Mass/volume] in Serum or Plasma by calculation 0-Holzer HospitalComment on above:LDL ATP III CLASSIFICATIONLDL less than 100 mg/dL OptimalLDL 100-129 mg/dL Near or above omhhbevFPF902-709 mg/dL Borderline highLDL 160-189 mg/dL HighLDL greater than 189 mg/dL Very highCholesterol in LDL [Mass/Vol]97 mg/dL0Holzer HospitalComment on above:LDL ATP III CLASSIFICATIONLDL less than 100 mg/dL OptimalLDL 100-129 mg/dL Near or above yjpgfasNYZ955-262 mg/dL Borderline highLDL 160-189 mg/dL HighLDL greater than 189 mg/dL Very highCholesterol in VLDL Calc [Mass/Vol]Ordered By: Varun Glass on 43-45-6332Igxvbsxlzwf in VLDL [Mass/Vol]Cholesterol in VLDL [Mass/volume] in Serum or Plasma by calculation Holzer HospitalCholesterol in VLDL [Mass/Vol]13 mg/dLHolzer HospitalComplete Blood Count Auto DiffOrdered By: Varun Glass on 48-68-0648Xrlvywfps (Bld) [#/Vol]0.0 10*3/uL0.0-0.2FUniversity Hospitals Beachwood Medical CenterComment on above:Result Comment: PERFORMED BY: [place] [address] [place] [address] PATHOLOGIST HEALTH COUNSELOR REEMA SANTA M.D.Performed By: #### LIPID, TSH3, CBC, CMP, A1C WT eA #### [facility] [address] [place] [address] USABasophils/100 WBC (Bld)0.7 %.Holzer HospitalComment on above:Performed By: #### LIPID, TSH3, CBC, CMP, A1C WTH eA #### [facility] [address] [place] [address] USAEosinophils (Bld) [#/Vol]0.1 10*3/uL0.0-0.45Holzer HospitalComment on above:Performed By: #### LIPID, TSH3, CBC, CMP, A1C WTH eA #### [facility] [address] [place] [address] USAEosinophils/100 WBC (Bld)1.6 %.Holzer HospitalComment on above:Performed By: #### LIPID, TSH3, CBC, CMP, A1C WTH eA #### [place] [address] USAErythrocyte distribution width (RBC) [Ratio]13.8 % 11.9-15.3FUniversity Hospitals Beachwood Medical CenterComment on above:Performed By: #### LIPID, TSH3, CBC, CMP, A1C WTH eA #### [place] [address] USAHematocrit (Bld) [Volume fraction]38.3 %34.0-46.4FUniversity Hospitals Beachwood Medical CenterComment on above:Performed By: #### LIPID, TSH3, CBC, CMP, A1C WTH eA #### [place] [address] USAHemoglobin (Bld) [Mass/Vol]13.1 g/dL11.8-15.4FUniversity Hospitals Beachwood Medical CenterComment on above:Performed By: #### LIPID, TSH3, CBC, CMP, A1C WTH eA #### [place] [address] USALymphocytes (Bld) [#/Vol]1.4 10*3/uL1.00-4.8Holzer HospitalComment on above:Performed By: #### LIPID, TSH3, CBC, CMP, A1C WTH eA #### [facility] [address] [place] [address] USALymphocytes/100 WBC (Bld)24.0 %.Holzer HospitalComment on above:Performed By: #### LIPID, TSH3, CBC, CMP, A1C WTH eA #### [facility] [address] (RBC) [Entitic mass]31.0 pg24.7-34.3FUniversity Hospitals Beachwood Medical CenterComment on above:Performed By: #### LIPID, TSH3, CBC, CMP, A1C WTH eA #### [facility] [address] (RBC) [Entitic vol]91.0 zH06-855UoaomvpbzHolzer HospitalComment on above:Performed By: #### LIPID, TSH3, CBC, CMP, A1C WTH eA #### [place] [address] USAMonocytes (Bld) [#/Vol]0.5 10*3/uL0.0-0.8Holzer HospitalComment on above:Performed By: #### LIPID, TSH3, CBC, CMP, A1C WTH eA #### [place] [address] USAMonocytes/100 WBC (Bld)7.9 %.Holzer HospitalComment on above:Performed By: #### LIPID, TSH3, CBC, CMP, A1C WTH eA #### [facility] [address] [place] [address] USANeutrophils (Bld) [#/Vol]3.9 10*3/uL1.8-7.7FUniversity Hospitals Beachwood Medical CenterComment on above:Performed By: #### LIPID, TSH3, CBC, CMP, A1C WTH eA #### [facility] [address] [place] [address] USANeutrophils/100 WBC (Bld)65.8 %.Holzer HospitalComment on above:Performed By: #### LIPID, TSH3, CBC, CMP, A1C WTH eA #### [facility] [address] [place] [address] USAPlatelet mean volume (Bld) [Entitic vol]7.8 fL6.3-10.7 Holzer HospitalComment on above:Performed By: #### LIPID, TSH3, CBC, CMP, A1C WTH eA #### [place] [address] USAPlatelets (Bld) [#/Vol]325 10*3/pC025-972YddksnkdpHolzer HospitalComment on above:Performed By: #### LIPID, TSH3, CBC, CMP, A1C WTH eA #### [place] [address] USARBC (Bld) [#/Vol]4.21 10*6/uL3.60-5.00Holzer HospitalComment on above:Performed By: #### LIPID, TSH3, CBC, CMP, A1C WTH eA #### [place] [address] USAWBC (Bld) [#/Vol]5.9 10*3/uL3.8-11.6FUniversity Hospitals Beachwood Medical CenterComment on above:Performed By: #### LIPID, TSH3, CBC, CMP, A1C WTH eA #### [place] [address] USAComplete Blood Count Auto Diffon 08-00-2031Boct Corpuscular HGB Conc34.1 g/hEZonxuc92.0-35.0The [facility] Physician GroupComment on above:Performed By: #### LIPID, TSH3, CBC, CMP, A1C WTH eA #### [place] [address] USANRBC%0.1 /100{WBC}Normal0-0.5The [facility] Comment on above:Performed By: #### LIPID, TSH3, CBC, CMP, A1C WTH eA #### [place] [address] USAComprehensive Metabolic Panelon 48-49-2192Gbfoylp [Mass/Vol]3.9 g/dLNormal3.5-5.7The [facility] Hospital Physician GroupComment on above: Performed By: #### LIPID, TSH3, CBC, CMP, A1C WTH eA #### [facility] [address] [place] [address] USAGFR/1.73 sq M.predicted MDRD (S/P/Bld) [Vol rate/Area] mL/min/{1.73_m2}NormalThe [facility] Physician [facility] HospitalComment on above:Performed By: #### LIPID, TSH3, CBC, CMP, A1C WTH eA #### [facility] [address] [place] [id number] USAComprehensive Metabolic PanelOrdered By: Varun Glass on 09-04-0513Emdwpmg/Globulin [Mass ratio]1.6 {ratio}Holzer HospitalComment on above:Performed By: #### LIPID, TSH3, CBC, CMP, A1C WTH eA #### [facility] [address] [place] [id number] USAALP [Catalytic activity/Vol]53 U/Y45-575NwuuhiikkHolzer HospitalComment on above:Performed By: #### LIPID, TSH3, CBC, CMP, A1C WTH eA #### [facility] [address] [place] [id number] USAALT [Catalytic activity/Vol]7 U/L7-52Holzer HospitalComment on above:Performed By: #### LIPID, TSH3, CBC, CMP, A1C WTH eA #### [facility] [address] [place] [address] USAAnion gap [Moles/Vol]10.1 mmol/L6.0-15.0Holzer HospitalComment on above:Performed By: #### LIPID, TSH3, CBC, CMP, A1C WTH eA #### [facility] [address] [place] [id number] USAAST [Catalytic activity/Vol]13 U/N80-69OswnqjcjnHolzer HospitalComment on above:Performed By: #### LIPID, TSH3, CBC, CMP, A1C WTH eA #### [facility] [address] [place] [address] USABilirubin [Mass/Vol]0.4 mg/dL0.3-1.0Holzer HospitalComment on above:Performed By: #### LIPID, TSH3, CBC, CMP, A1C WTH eA #### [place] [address] USACalcium [Mass/Vol]8.5 mg/dLLow8.6-10.3FUniversity Hospitals Beachwood Medical CenterComment on above:Performed By: #### LIPID, TSH3, CBC, CMP, A1C WTH eA #### [place] [address] USAChloride [Moles/Vol]107 mmol/K93-892MrxggcdvbHolzer HospitalComment on above:Performed By: #### LIPID, TSH3, CBC, CMP, A1C WTH eA #### [place] [address] USACO2 [Moles/Vol]26.9 mmol/L21.0-31.0Holzer HospitalComment on above:Performed By: #### LIPID, TSH3, CBC, CMP, A1C WTH eA #### [place] [address] USACreatinine [Mass/Vol]0.63 mg/dL0.60-1.20Holzer HospitalComment on above:Performed By: #### LIPID, TSH3, CBC, CMP, A1C WTH eA #### [place] [address] USAGlobulin (S) [Mass/Vol]2.4 g/dLHolzer HospitalComment on above:Performed By: #### LIPID, TSH3, CBC, CMP, A1C WTH eA #### [place] [address] USAGlucose [Mass/Vol]92 mg/dB27-378KsjyubgxiHolzer HospitalComment on above:Result Comment: Random Glucose Reference Range is dependent on time and content of last meal. Glucose of more than 200 mg/dL in a nonstressed, ambulatory subject supports the diagnosis of Diabetes Mellitus. ADA recommended reference rangePerformed By: #### LIPID, TSH3, CBC, CMP, A1C WTH eA #### [facility] [address] [place] [address] USAADA recommended reference rangeRandom Glucose Reference Range is dependent on time and content of last meal. Glucose of more than 200 mg/dL in a nonstressed, ambulatory subject supports the diagnosisof Diabetes Mellitus.Potassium [Moles/Vol]4.0 mmol/L3.5-5.1FUniversity Hospitals Beachwood Medical Center Comment on above:Performed By: #### LIPID, TSH3, CBC, CMP, A1C WTH eA #### [place] [address] USAProtein [Mass/Vol]6.3 g/dLLow6.4-8.9Holzer HospitalComment on above:Performed By: #### LIPID, TSH3, CBC, CMP, A1C WTH eA #### [place] [address] USASodium [Moles/Vol]140 mmol/D632-055SdmjwgcslHolzer HospitalComment on above:Performed By: #### LIPID, TSH3, CBC, CMP, A1C WTH eA #### [place] [address] USAUrea nitrogen [Mass/Vol]11 mg/dL7-25Holzer HospitalComment on above:Performed By: #### LIPID, TSH3, CBC, CMP, A1C WTH eA #### [place] [address] USACreatinine [Mass/volume] in Serum or PlasmaOrdered By: Varun Glass on 62-53-9258Scvtzbadcf [Mass/Vol]Creatinine [Mass/volume] in Serum or Plasma0.60-1.20Holzer HospitalEosinophils Auto (Bld) [#/Vol]Ordered By: Varun Glass on 49-76-1267Ukundxygjwn (Bld) [#/Vol]Automated eosinophil count0.0-0.45Holzer HospitalEosinophils/100 WBC Auto (Bld)Ordered By: Varun Glass on 13-28-7627Jzwyopjwely/100 WBC (Bld) Automated eosinophil %.Holzer HospitalErythrocyte distribution width Auto (RBC) [Ratio]Ordered By: Varun Glass on 87-33-8229Gxculpagkji distribution width (RBC) [Ratio]Erythrocyte distribution width [Ratio] by Automated count11.9-15.3FUniversity Hospitals Beachwood Medical CenterEstradiolon 03-01-2025 Lduoyarih34.5 pg/mLNormal.The [facility] Physician GroupComment on above:Result Comment: Adult Female Range Follicular phase 12.5 - 166.0 Ovulation phase 85.8 - 498.0 Luteal phase 43.8 - 211.0 Postmenopausal <6.0 - 54.7 1st trimester 215.0 - >4300.0 Ricardo ECLIA methodology PERFORMED BY: [place] [address] PATHOLOGIST HEALTH COUNSELOR REEMA SANTA M.D.Performed By: #### FSH ####[address]#### ESTRADIOL, TEST F + T, PROG, SHBG ####[facility] ,Follicle Stimulating Hormoneon 13-36-2552Ndnocgrz Stimulating Hormone5.4 m[iU]/mLNormalThe [facility] Physician GroupComment on above:Result Comment: FEMALE NORMALS (PREMENOPAUSE) MID-FOLLICULAR PHASE: 3.9-8.8 mIU/mL MID-CYCLE PEAK: 4.5-22.5 mIU/mL MID-LUTEAL PHASE: 1.8-5.1 mIU/mL FEMALE NORMALS (POSTMENOPAUSE): 16.7-113.6 mIU/mL MALE NORMALS: 1.3-19.3 mIU/mL PERFORMED BY: [place] [address] PATHOLOGIST HEALTH COUNSELOR REEMA SANTA M.D.Performed By: #### FSH #### [address] #### ESTRADIOL, TEST F + T, PROG, SHBG #### [facility] ,Follitropin [Units/volume] in Serum or PlasmaOrdered By: Varun Glass on 08-47-2892Jtzaxlneotu QnFollitropin [Units/volume] in Serum or PlasmaHolzer HospitalComment on above:FEMALE NORMALS (PREMENOPAUSE) MID- FOLLICULAR PHASE: 3.9-8.8 mIU/mL MID-CYCLE PEAK: 4.5-22.5 mIU/mL MID-LUTEAL PHASE: 1.8-5.1 mIU/mLFEMALE NORMALS (POSTMENOPAUSE): 16.7-113.6 mIU/mLMALE NORMALS: 1.3-19.3 mIU/mLFollitropin Qn5.4 m[IU]/mLHolzer HospitalComment on above:FEMALE NORMALS (PREMENOPAUSE) MID-FOLLICULAR PHASE: 3.9- 8.8 mIU/mL MID-CYCLE PEAK: 4.5-22.5 mIU/mL MID-LUTEAL PHASE: 1.8-5.1 mIU/mLFEMALE NORMALS (POSTMENOPAUSE): 16.7-113.6 mIU/mLMALE NORMALS: 1.3-19.3 mIU/mLGlobulin Calc (S) [Mass/Vol]Ordered By: Varun Glass on 13-85-0535Vgjzvvnn (S) [Mass/Vol]Serum globulin measurement by calculation (mass/volume)Holzer HospitalGlucose [Mass/volume] in Serum or PlasmaOrdered By: Varun Glass on 63-28-0803Tqepmdd [Mass/Vol]Glucose [Mass/volume] in Serum or Plasma 70-100Holzer HospitalComment on above:ADA recommended reference rangeRandom Glucose Reference Range is dependent on time and content of last meal. Glucose of more than 200 mg/dL in a nonstressed, ambulatory subject supports the diagnosisof Diabetes Mellitus.Hematocrit Auto (Bld) [Volume fraction]Ordered By: Varun Glass on 40-73-8444Xgfwoalspn (Bld) [Volume fraction]Hematocrit [Volume Fraction] of Blood by Automated count34.0-46.4 Holzer HospitalHemoglobin [Mass/volume] in BloodOrdered By: Varun Glass on 08-01-5027Tjwriqcska (Bld) [Mass/Vol]Hemoglobin [Mass/volume] in Blood11.8-15.4FUniversity Hospitals Beachwood Medical CenterLeukocytes [#/volume] corrected for nucleated erythrocytes in Blood by Automated counOrdered By: Varun Glass on 82-40-6159QRF corrected for nucl RBC Auto (Bld) [#/Vol]Leukocytes [#/volume] corrected for nucleated erythrocytes in Blood by Automated coun3.8-11.6FUniversity Hospitals Beachwood Medical CenterWBC corrected for nucl RBC Auto (Bld) [#/Vol]5.9 10*3/uL 3.8-11.6FUniversity Hospitals Beachwood Medical CenterLipid PanelOrdered By: Varun Glass on 46-92-7724Fizpyxuzxvi [Mass/Vol]168 mg/aW904-545NpkzdzvjsHolzer HospitalComment on above:Result Comment: Chol less than 200 mg/dl low risk Chol 201-239 mg/dl borderline risk Chol 240 mg/dl and greater high riskPerformed By: #### LIPID, TSH3, CBC, CMP, A1C WTH eA #### [facility] [address] [place] [address] USAChol less than 200 mg/dl low riskChol 201-239 mg/dl borderline riskChol 240 mg/dl and greater high riskCholesterol in HDL [Mass/Vol] 58 mg/xS83-39BmlxlvpxiHolzer HospitalComment on above:Result Comment: HDL CHOL ATP-III CLASSIFICATION Cardiovascular Risk HDL > or equal to 60 mg/dL LOW HDL < 40 mg/dL HIGHPerformed By: #### LIPID, TSH3, CBC, CMP, A1C WTH eA #### [facility] [address] [place] [address] USAHDL CHOL ATP-III CLASSIFICATION Cardiovascular RiskHDL > or equal to 60 mg/dL LOWHDL < 40 mg/dL HIGHCholesterol.total/Cholesterol in HDL [Mass ratio]2.9 {ratio}<5.0Holzer HospitalComment on above: Performed By: #### LIPID, TSH3, CBC, CMP, A1C WTH eA #### [facility] [address] [place] [address] USALipid Panelon 29-06-0065MBS Cholesterol,Rsivjgioqn35 mg/dL Normal0-100The [facility] Hospital Physician GroupComment on above:Result Comment: LDL ATP III CLASSIFICATION LDL less than 100 mg/dL Optimal LDL 100-129 mg/dL Near or above optimal LDL 130-159 mg/dL Borderline high LDL 160-189 mg/dL High LDL greater than 189 mg/dL Very highPerformed By: #### LIPID, TSH3, CBC, CMP, A1C [facility] eA #### [facility] [address] [place] [id number] USATriglyceride w/Rfataw77 mg/dLNormal0-149The [facility] Hospital Physician GroupComment on above:Result Comment: TRIG ATP III CLASSIFICATION TRIG less than 150 mg/dL Normal TRIG 150-199 mg/dL Borderline high TRIG 200-500 mg/dL High TRIG greater than 500 mg/dL Very high Standard traceable to the Center for Disease Conrtrol and Prevention (CDC) test method.Performed By: #### LIPID, TSH3, CBC, CMP, A1C [facility] eA #### [facility] [address] [id number] USAVLDL RDKPYYKGBUA62 mg/dLNormalThe [facility] Hospital Physician GroupComment on above:Performed By: #### LIPID, TSH3, CBC, CMP, A1C [facility] eA #### [facility] [address] [id number] USALymphocytes Auto (Bld) [#/Vol]Ordered By: Varun Glass on 28-22-1794Bbqtfzhvdyb (Bld) [#/Vol]Lymphocytes [#/volume] in Blood by Automated count1.00-4.8Holzer HospitalLymphocytes/100 WBC Auto (Bld) Ordered By: Varun Glass on 37-70-5661Bycmimyqiro/100 WBC (Bld)Lymphocytes/100 leukocytes in Blood by Automated count.[facility] Auto (RBC) [Entitic mass]Ordered By: Varun Glass on 06-36-9636HRX (RBC) [Entitic mass]MCH [Entitic mass] by Automated count24.7-34.3FUniversity Hospitals Portage Medical Center Auto (RBC) [Mass/Vol]Ordered By: Varun Glass on 14-64-3410HZBJ (RBC) [Mass/Vol]MCHC [Mass/volume] by Automated count32.0-35.0Holzer HospitalMCHC (RBC) [Mass/Vol]34.1 g/dL32.0-35.0Holzer HospitalMCV Auto (RBC) [Entitic vol]Ordered By: Varun Glass on 49-06-2373QWQ (RBC) [Entitic vol]MCV [Entitic volume] by Automated ipcfw35-371BpevmcyndHolzer HospitalMonocytes Auto (Bld) [#/Vol]Ordered By: Varun Glass on 66-40-6236Xgorolmyp (Bld) [#/Vol]Automated blood monocyte count0.0-0.8Holzer HospitalMonocytes/100 WBC Auto (Bld)Ordered By: Varun Glass on 78-85-4678Guofrrovk/100 WBC (Bld)Automated monocyte %.Holzer HospitalNeutrophils Auto (Bld) [#/Vol]Ordered By: Varun Glass on 03-01-2025 Neutrophils (Bld) [#/Vol]Neutrophils [#/volume] in Blood by Automated count 1.8-7.7FUniversity Hospitals Beachwood Medical CenterNeutrophils/100 WBC Auto (Bld)Ordered By: Varun Glass on 03-89-6278Qisyjkfzeja/100 WBC (Bld)Automated neutrophil %. Holzer HospitalNo Panel InformationOrdered By: Varun Glass on 49-60-3971Izwcucfdi GFR (CKD-EPI)> 60.0 mL/MinHolzer Hospital Pharmacy Creatinine Clearance (ChemN/AFUniversity Hospitals Beachwood Medical CenterNucleated erythrocytes [Presence] in Blood by Automated countOrdered By: Varun Glass on 70-75-9453Vqrhpukjf RBC Auto Ql (Bld)Nucleated erythrocytes [Presence] in Blood by Automated count0-0.5FUniversity Hospitals Beachwood Medical CenterNucleated RBC Auto Ql (Bld)0.1 /100{WBC}0-0.5FUniversity Hospitals Beachwood Medical CenterPlatelet mean volume Auto (Bld) [Entitic vol]Ordered By: Varun Glass on 35-72-8282Jkjrygnk mean volume (Bld) [Entitic vol]Platelet mean volume [Entitic volume] in Blood by Automated count6.3-10.7FUniversity Hospitals Beachwood Medical CenterPlatelets Auto (Bld) [#/Vol]Ordered By: Varun Glass on 05-27-8070Zptezlgbh (Bld) [#/Vol]Platelets [#/volume] in Blood by Automated abvuz349-023MlajmmcofHolzer Hospital Potassium [Moles/volume] in Serum or PlasmaOrdered By: Varun Glass on 61-70-4995Mvlonzybj [Moles/Vol]Potassium [Moles/volume] in Serum or Plasma 3.5-5.1FUniversity Hospitals Beachwood Medical CenterProgesteroneon 46-40-3255Vheaazxexoyq1.8 ng/mLNormal.The [facility] Physician GroupComment on above:Result Comment: Follicular phase 0.1 - 0.9 Luteal phase 1.8 - 23.9 Ovulation phase 0.1 - 12.0 First trimester 11.0 - 44.3 Second trimester 25.4 - 83.3 Third trimester 58.7 - 214.0 Postmenopausal 0.0 - 0.1Performed By: #### FSH ####[facility] [address]#### ESTRADIOL, TEST F + T, PROG, SHBG ####[facility] ,Protein [Mass/volume] in Serum or PlasmaOrdered By: Varun Glass on 20-20-4495Wbuyatu [Mass/Vol]Protein [Mass/volume] in Serum or PlasmaLow6.4-8.9Holzer HospitalRBC Auto (Bld) [#/Vol]Ordered By: Varun Glass on 22-37-8217LUP (Bld) [#/Vol]Erythrocytes [#/volume] in Blood by Automated count3.60-5.00The [facility] Medical Centererum or plasma albumin/globulin mass ratioOrdered By: Varun Glass on 03-01-2025 Albumin/Globulin [Mass ratio]Serum or plasma albumin/globulin mass ratio The [facility] Medical Centererum or plasma anion gap determinationOrdered By: Varun Glass on 71-02-6371Bjaog gap [Moles/Vol]Serum or plasma anion gap determination6.0-15.0The [facility] Medical Centererum or plasma estradiol (E2) measurement (mass/volume)Ordered By: Varun Glass on 49-65-9973S7 [Mass/Vol]81.5 pg/mL.Holzer HospitalComment on above:Adult Female Range Follicular phase 12.5 - 166.0 Ovulation phase 85.8 - 498.0 Luteal phase 43.8 - 211.0 Postmenopausal <6.0 - 54.7 1st trimester 215.0 - >4300.0Roche ECLIA methodologySerum or plasma free testosterone measurement (mass/volume)Ordered By: Varun Glass on 39-55-0497Qnnoaqyxgrct Free [Mass/Vol] 0.3 pg/mL0.0-4.2FUniversity Hospitals Beachwood Medical CenterComment on above:Performed at: [employer] [id number] Director: Polo Martinez PhD, Phone: [phone] at: [facility] [employer] [id number] Director: Issac Treviño MD, Phone: [phone] or plasma progesterone measurement (mass/volume)Ordered By: Varun Glass on 22-83-8961Idibllrvvkpk [Mass/Vol]5.8 ng/mL.Holzer HospitalComment on above:Follicular phase 0.1 - 0.9 Luteal phase 1.8 - 23.9 Ovulation phase 0.1 - 12.0 First trimester 11.0 - 44.3 Second trimester 25.4 - 83.3 Third trimester 58.7 - 214.0 Postmenopausal 0.0 - 0.1Serum or plasma total cholesterol/high density lipoprotein (HDL) cholesterol mass rat Ordered By: Varun Glass on 03-73-4898Rxasdhalskf.total/Cholesterol in HDL [Mass ratio]Serum or plasma total cholesterol/high density lipoprotein (HDL) cholesterol mass rat<5.0The [facility] Medical Centerex Hormone Binding Globulinon 08-48-5167Kvb Hormone Binding Tksleqlc99.6Dkieql27.3-125.0The [facility] Physician GroupComment on above:Result Comment: Performed at: [facility] [address] [place], [place] [id number] Safety Scientist: Polo Martinez PhD, Phone: [phone] By: #### FSH ####[facility] [address] [place] [address] [place]#### ESTRADIOL, TEST F + T, PROG, SHBG ####[facility] ,Sodium [Moles/volume] in Serum or PlasmaOrdered By: Varun Glass on 33-34-2322Wlxjrd [Moles/Vol]Sodium [Moles/volume] in Serum or Gdrrft859-926LvvzxacopHolzer HospitalTestosterone Free and TotalOrdered By: Varun Glass on 03-01-2025 Testosterone [Mass/Vol]7 ng/dL4-50Holzer HospitalComment on above:Performed By: #### FSH #### [facility] [address] [place] [address] [place] #### ESTRADIOL, TEST F + T, PROG, SHBG #### [facility] ,Testosterone Free and Totalon 70-37-2325Yiqfrwzcadga,Free0.3 pg/mLNormal0.0-4.2 The [facility] Physician GroupComment on above:Result Comment: Performed at: [facility] [employer] [id number] Safety Scientist: Polo Martinez PhD, Phone: [phone] Performed at: [facility] [employer] [id number] Safety Scientist: Issac Treviño MD, Phone: [phone] By: #### FSH #### [facility] [address] [place] [address] [place] #### ESTRADIOL, TEST F + T, PROG, SHBG #### [facility] ,Thyroid Stimulating HormoneOrdered By: Varun Glass on 18-84-2420RYZ Qn2.95 m[IU]/L0.45-5.33Holzer HospitalComment on above:Result Comment: PERFORMED BY: [place] [address] PATHOLOGIST HEALTH COUNSELOR REEMA SANTA M.D.Performed By: #### LIPID, TSH3, CBC, CMP, A1C [facility] eA #### [facility] [address] [id number] USAThyrotropin [Units/volume] in Serum or PlasmaOrdered By: Varun Glass on 94-46-4610VKQ QnThyrotropin [Units/volume] in Serum or Plasma 0.45-5.33Holzer HospitalTriglyceride [Mass/volume] in Serum or PlasmaOrdered By: Varun Glass on 93-41-3985Bnskhkyhwwyj [Mass/Vol]Triglyceride [Mass/volume] in Serum or Plasma0-149Holzer HospitalComment on above:TRIG ATP III CLASSIFICATIONTRIG less than 150 mg/dL NormalTRIG 150-199 mg/dL Borderline highTRIG 200-500 mg/dL High TRIG greater than 500 mg/dL Very highStandard traceable to the Center for Disease Conrtrol and Prevention (CDC) test method.Triglyceride [Mass/Vol]67 mg/dL0-149Holzer HospitalComment on above:TRIG ATP III CLASSIFICATIONTRIG less than 150 mg/dL NormalTRIG 150-199 mg/dL Borderline highTRIG 200-500 mg/dL High TRIG greater than 500 mg/dL Very highStandard traceable to the Center for Disease Conrtrol and Prevention (CDC) test method.Urea nitrogen [Mass/volume] in Serum or Plasma Ordered By: Varun Glass on 13-65-8166Kdir nitrogen [Mass/Vol]Urea nitrogen [Mass/volume] in Serum or Plasma04-21Holzer HospitalWBC Auto (Bld) [#/Vol]Ordered By: Varun Glass on 50-00-7199JVR (Bld) [#/Vol]Leukocytes [#/volume] in Blood by Automated count3.8-11.6FUniversity Hospitals Beachwood Medical Center Laboratory - Drug toxicologyon 55-29-3257Zwlytmogzebejev Ql (U)PositiveHolzer HospitalMM screening mammo BI w/CADon 24-91-8687CL screening mamm[facility] [place] [address] [place] [address] Mammography Report Signed Patient: Araseli Fernandez MR# : [id number] : 1975 Acct:[id number] Age/Sex: 49 / F ADM Date: 11/18/24 Loc: [place] Room: Type: REG CLI Attending Dr: Referral Self Copies to: Varun Glass DO SELF,REFERRAL Ordering Provider: SELF,REFERRAL Date of Service: 11/18/24 MM/MM screening mammo BI w/CAD: SCREENING CLINICAL DATA: Screening for malignancy. SCREENING MAMMOGRAM - FULL FIELD DIGITAL WITH TOMOSYNTHESIS AND CAD COMPARISON: Dating back to 2020 Tomosynthesis craniocaudal and mediolateral oblique views of both breasts were obtained using low- dose digital technique. This examination was reviewed with the aid of CAD. The breast tissue is almost entirely fatty. There are no dominant masses, typically malignant calcifications or architectural distortion. There has been no significant interval change. MM/MM screening mammo BI w/CAD IMPRESSION: NO MAMMOGRAPHIC EVIDENCE OF MALIGNANCY. ROUTINE FOLLOW-UP IS RECOMMENDED IN ONE YEAR. RESULT CODE: 1 Negative DENSITY CODE: 1 (<25% glandular) FOLLOW UP: 1YR The false-negative rate of mammography is approximately 10-percent. Management of a palpable abnormality must be based on clinical grounds. Patient was entered into a reminder system with a target due date for the next mammogram. Impression dictated by: Campbell Jordan M.D.11/18/2024 3:12 PM Dictation Location: [facility] Transcribed By: [facility] 11/18/24 1512 Dictated By: Campbell Jordan MD 11/18/24 1509 Signed By: 11/18/[address] [place] [address] Physician GroupMammography reportOrdered By: Campbell Jordan on 54-90-6602Ghajldxsvp imaging [facility] [place] [place] [address] Mammography Report Signed Patient: Araseli Fernandez MR#: [id number] : 1975 Acct:[id number] Age/Sex: 49 / F ADM Date: 5 Loc: [place] Room: Type: REG CLI Attending Dr: Referral Self Copies to: DO MADAI Cullen,REFERRAL ~ Ordering Provider: SELF,REFERRAL Date of Service: 11/18/24 MM/MM screening mammo BI w/CAD: SCREENING CLINICAL DATA: Screening for malignancy. SCREENING MAMMOGRAM - FULL FIELD DIGITAL WITH TOMOSYNTHESIS AND CAD COMPARISON: Dating back to 2020 Tomosynthesis craniocaudal and mediolateral oblique views of both breasts were obtained using low-dose digital technique. This examination was reviewed with the aid of CAD. The breast tissue is almost entirely fatty. There are no dominant masses, typically malignant calcifications or architectural distortion. There has been no significant interval change. MM/MM screening mammo BI w/CAD IMPRESSION: NO MAMMOGRAPHIC EVIDENCE OF MALIGNANCY. ROUTINE FOLLOW-UP IS RECOMMENDED IN ONE YEAR. RESULT CODE: 1 Negative DENSITY CODE: 1 (<25% glandular) FOLLOW UP: 1YR The false-negative rate of mammography is approximately 10-percent. Management of a palpable abnormality must be based on clinical grounds. Patient was entered into a reminder system with a target due date for the next mammogram. Impression dictated by: Campbell Jordan M.D.11/18/2024 3:12 PM Dictation Location: [facility] Transcribed By: CHELSEY 11/18/24 1512 Dictated By: Campbell Jordan MD 11/18/24 1509 Signed By: 11/18/24 1512 [facility] Work Phone: THORACIC SPINE WO CONTRASTon [phone] THORACIC SPINE WO CONTRASTEXAMINATION: MR THORACIC SPINE WO CONTRAST HISTORY: Thoracic spine pain COMPARISON: None available TECHNIQUE: Multiplanar multisequence MRI of the thoracic spine was performed Without contrast. FINDINGS: The thoracic spinal cord is normal in signal and morphology. No focal cord signal abnormality. The alignment of the thoracic spine is anatomic. The vertebral body heights are well maintained. Noaggressive bone marrow signal abnormality. Tiny disc bulge at T7-8 and T9-10, and small disc bulge at T8-9. No significant disc bulge, spinal canal stenosis or neuroforaminal stenosis. Visualized paravertebral soft tissues are grossly unremarkable. IMPRESSION: No significant disc bulge. No high-grade neural foraminal or spinal canal stenosis. Normal morphology and signal of the thoracic spinal cord. ELECTRONICALLY SIGNED BY: Aminta DuncanmalNot AvailableUS community outreach [facility] [phone] [facility] outreach [facility] [address] [id number] Ultrasound Report Signed Patient: Araseli Fernandez MR# : [id number] : 1975 Acct:[id number] Age/Sex: 49 / F ADM Date: 08/16/24 Loc: [place] Room: Type: DEP REF Attending Dr: Celina Norwood Ordering Provider: CELINA NORWOOD Date of Service: 08/16/24 /[facility] outreach ARTEM: SCREENING Copies to: [facility] LOWER EXTREMITY SEGMENTAL ARTERIAL DOPSCAN (PVR) INDICATION: [facility] PAD screening program. PROCEDURE: Right arm blood pressure is 116 , left is 123 . Pressures at the right ankle are 143 using the dorsalis pedis artery with ankle-brachial index of 1.16 . Pressures at the left ankle are 134 with ankle-brachial index of 1.09 . Wave forms by plethysmography are normal. /[facility] ARTEM IMPRESSION: NO HEMODYNAMICALLY SIGNIFICANT PERIPHERAL VASCULAR OCCLUSIVE DISEASE AT REST IN EITHER LOWER EXTREMITY. Impression dictated by: Guy Vanessa MD08/23/2024 2:25 PM Dictation Location: [address] [address] Tech: Kori Mars Transcribed By: [facility] 08/23/24 1425 Dictated By: Guy Vanessa MD 08/23/241424 Signed By: 08/23/24 1425[facility] Physician GroupUS [facility] outreach carotidon [phone] [facility] outreach carotidElizabeth [place] [phone] Ultrasound Report Signed Patient: Araseli Fernandez MR# : [id number] : 1975 Acct:[id number] Age/Sex: 49 / F ADM Date: 08/16/24 Loc: [place] Room: Type: DEP REF Attending : Celina Norwood Ordering Provider: CELINA NORWOOD Date of Service: 08/16/24 /[facility] carotid: SCREENING Copies to: [facility] CAROTID DUPLEX INDICATION: [facility] carotid screening program. PROCEDURE: Color-flow duplex scanning is used to interrogate the extracranial carotid arterial system, as well as both vertebral arteries. Both carotid bifurcations show some smooth homogeneous plaque formation. The proximal right internal carotid artery shows a highest peak systolic velocity of 108 cm/s with an end-diastolic velocity of 36 cm/s . The mid internal carotid artery measures 114 cm/s peak systolic with an end diastolic velocity of 44.1 cm/s . The distal segment measures 112 cm/s peak systolic with an end diastolic velocity of 46 cm/s . The velocities of the right common carotid artery are 125 cm/s peak systolic and 31.1 cm/s end-diastolic and 117 cm/s peak systolic and 37.9 cm/s end diastolic distally. The peak systolic velocity ratio of the internal to the common carotid artery is 0.97 . The proximal left internal carotid artery shows a highest peak systolic velocity of 157 cm/s with an end-diastolic velocity of 54.9 cm/s . The mid internal carotid artery measures 123 cm/s peak systolic with an end diastolic velocity of 46.3 cm/s . The distal segment measures 98.8 cm/s peak systolic with an end diastolic velocity of 36.8 cm/s . The velocities of the left common carotid artery are 165 cm/s peak systolic and 40 cm/s end-diastolic and 131 cm/s peak systolic and 33.7 cm/s end diastolic distally. The peak systolic velocity ratio of the internal to the common carotid artery is 1.2 . / community outreach carotid IMPRESSION: MILD PLAQUE FORMATION IS NOTED BILATERALLY, WITH LESS THAN 50% STENOSIS OF BOTH EXTRACRANIAL INTERNAL CAROTID ARTERY. BOTH VERTEBRAL ARTERIES ARE PATENT WITH ANTEGRADE FLOW. Impression dictated by: Guy Vanessa MD08/23/2024 2:24 PM Dictation Location: [place] [address] Tech: Nieves Faria Transcribed By: CHELSEY 08/23/24 1424 Dictated By: Guy Vanessa MD 08/23/24 1423 Signed By: 08/23/24 1424[facility] Physician [facility]US [facility] outreach aortaon [phone] community outreach [facility] [address] [place] [address] [place] [address] Ultrasound Report Signed Patient: Araseli Fernandez MR# : [id number] : 1975 Acct:[id number] Age/Sex: 49 / F ADM Date: 08/16/24 Loc: Room: Type: [facility] Attending Dr: Outreach Community Ordering Provider: COMMUNITY,OUTREACH Date of Service: 08/16/24 US/ community outreach aorta: SCREENING [facility] Scre[facility] ultrasound of the abdominal aorta HISTORY: Screening There is no abdominal aortic aneurysm. Iliac arteries unremarkable. US/US [facility] outreach aorta IMPRESSION: No abdominal aortic aneurysm. Impression dictated by: Rishabh Lakhani M.D.08/16/2024 9:20 PM Dictation Location: [place] [address] Tech: Nieves Bienvenido Transcribed By: CHELSEY 08/16/242119 Dictated By: Rishabh Lakhani DO 08/16/242119 Signed By: 08/16/242119[facility] Physician GroupBasophils Auto (Bld) [#/Vol]on 88-80-1021Kfoicpfsq (Bld) [#/Vol]0.0 10 3/uL0.0-0.1FUniversity Hospitals Beachwood Medical CenterBasophils/100 WBC Auto (Bld)on 14-80-8257Zdbvleaex/100 WBC (Bld)0.6 % 0.2-2.0Holzer HospitalBilirubin Auto test strip (U) [Mass/Vol] on 73-45-1683Xwomfktwu (U) [Mass/Vol]NegativeNEGATIVEHolzer HospitalEosinophils/100 WBC Auto (Bld)on 21-81-7716Bhrefokhqfd/100 WBC (Bld)0.9 % 0.9-7.0Holzer HospitalErythrocyte distribution width Auto (RBC) [Ratio]on 89-41-8991Jmvahkjsdfp distribution width (RBC) [Ratio]12.8 % 11.0-15.0Holzer HospitalEstimated glomerular filtration rate (GFR) non- Americanon 10-86-7129ZJD/1.73 sq M.predicted among non-blacks MDRD (S/P/Bld) [Vol rate/Area]mL/min/{1.73_m2}>=60Holzer HospitalHematocrit Auto (Bld) [Volume fraction]on 07-82-2167Egzhzssmab (Bld) [Volume fraction]41.2 %36.0-48.0Holzer HospitalHemoglobin [Mass/volume] in Bloodon 09-30-8589Vxqbestlsi (Bld) [Mass/Vol]13.7 g/dL12.0-16.0 [facility] HospitalLaboratory - Chemistry and Chemistry - challengeon 17-94-6645Siqodok [Mass/Vol]9.6 mg/dL8.5-10.1FUniversity Hospitals Beachwood Medical CenterChloride [Moles/Vol]103 mmol/F05-378KshujatcbHolzer HospitalCO2 [Moles/Vol]26.2 mmol/L21.0-32.0[facility] Creatinine [Mass/Vol]0.68 mg/dL0.55-1.02[facility] GFR/1.73 sq M.predicted MDRD (S/P/Bld) [Vol rate/Area]mL/min/{1.73_m2}>=60 Holzer HospitalGlucose [Mass/Vol]105 mg/vS46-184TqghwirkxHolzer HospitalPotassium [Moles/Vol]4.0 mmol/L3.5-5.1FLancaster Municipal Hospitalodium [Moles/Vol]141 mmol/I177-190FyapoqueuHolzer HospitalUrea nitrogen [Mass/Vol]10.0 mg/dL7.0-18.0Holzer HospitalUrea nitrogen/Creatinine [Mass ratio]14.7 mg/mgHolzer HospitalGlucose (U) [Mass/Vol]NegativeNEGATIVEHolzer Hospital Ketones Ql (U)NegativeNEGATIVEHolzer HospitalpH (U)7.0 [pH] 5.0-9.0The [facility] Toledo Medical Centerpecific gravity (U) [Rel density] <=1.0051.005-1.025Holzer HospitalUrobilinogen Qn (U)0.2 {Neema'U}/dL0.2-1.0Holzer HospitalLaboratory - Hematology and Cell countson 11-36-9279Mhfuhyvp granulocytes/100 WBC (Bld)0.2 %0.0-0.5 [facility] HospitalLaboratory - Specimen informationon 01-30-2024 Appearance (U)CLEARCLEARFUniversity Hospitals Beachwood Medical CenterColor (U)LT. YELLOW YELLOWHolzer HospitalLaboratory - Urinalysison 01-30-2024 Leukocyte esterase Test strip Ql (U)NegativeNEGATIVEHolzer HospitalNitrite Ql (U)NegativeNEGATIVEHolzer HospitalProtein Ql (U)NegativeNEG/TRACEHolzer HospitalLeukocytes [#/volume] corrected for nucleated erythrocytes in Blood by Automated counon 86-98-2924UZK corrected for nucl RBC Auto (Bld) [#/Vol]5.3 10 3/uL4.0-11.0Holzer HospitalLymphocytes Auto (Bld) [#/Vol]on 11-68-9255Penjrymliur (Bld) [#/Vol]2.3 10 3/uL1.2-3.8Holzer HospitalLymphocytes/100 WBC Auto (Bld)on 62-57-6233Imrqiuaaqir/100 WBC (Bld)42.7 %20.5-60.0[facility] CenterH Auto (RBC) [Entitic mass]on 02-36-9581MCN (RBC) [Entitic mass]30.4 pg26.7-34.0Holzer HospitalMCHC Auto (RBC) [Mass/Vol]on 05-29-7148GUZC (RBC) [Mass/Vol]33.3 g/dL29.9-35.2FUniversity Hospitals Beachwood Medical CenterMCV Auto (RBC) [Entitic vol]on 47-79-6937KAX (RBC) [Entitic vol] 91.6 fL81.0-99.0Holzer HospitalMonocytes Auto (Bld) [#/Vol]on 89-07-1194Qjnklabhm (Bld) [#/Vol]0.3 10 3/uL0.3-0.8Holzer HospitalMonocytes/100 WBC Auto (Bld)on 66-54-0818Jfrdelgrj/100 WBC (Bld)6.2 % 1.7-12.0Holzer HospitalNeutrophils Auto (Bld) [#/Vol]on 34-12-4564Mtvpbqpjsqx (Bld) [#/Vol]2.6 10 3/uL1.4-6.5FUniversity Hospitals Beachwood Medical CenterNeutrophils/100 WBC Auto (Bld)on 61-75-4267Wxjlaxjzfyb/100 WBC (Bld)49.4 % 43.0-75.0Holzer HospitalNo Panel Informationon 01-30-2024 Eosinophils # (Auto)0.1 10 3/uL0.0-0.7FUniversity Hospitals Beachwood Medical CenterImmature Granulocyte # (Auto)0.01 10 3/uL0.00-0.03[facility] Troponin I High Sensitivity<4.0 pg/mL4.0-51.3FUniversity Hospitals Beachwood Medical Center Comment on above:CUT-OFF POINTS HAVE BEEN ESTABLISHED BASED ON THE FOURTHUNIVERSAL DEFINITION OF MYOCARDIAL INFARCTION. THE UPPERREFERENCE LIMIT (URL) OF TROPONIN, DEFINED THE 99THPERCENTILE OF cTnI DISTRIBUTION IN A REFERENCE POPULATION,HAS BEEN CONFIRMED THE DECISION THRESHOLD FOR MIDIAGNOSIS.99TH PERCENTILE = 51.4 PG/MLNOTE: HIGH-SENSITIVITY TROPONIN ASSAY IS NOT INTENDED TO BEUSED IN ISOLATION BUT SHOULD BE INTERPRETED IN CONJUNCTIONWITH OTHER DIAGNOSTIC AND CLINICAL INFORMATION.Urine Microscopic ReviewNOHolzer HospitalPlatelet mean volume Auto (Bld) [Entitic vol]on 63-18-5239Dlvaoevp mean volume (Bld) [Entitic vol]8.7 fL9.5-13.5 Holzer HospitalPlatelets Auto (Bld) [#/Vol]on 01-30-2024 Platelets (Bld) [#/Vol]302 10 3/wL632-680KlmqtexkiHolzer HospitalRBC Auto (Bld) [#/Vol]on 71-57-9383KRZ (Bld) [#/Vol]4.50 10 6/uL4.20-5.40The [facility] Medical Centererum or plasma anion gap determinationon 19-30-1201Edumv gap [Moles/Vol]15.8 mmol/LFUniversity Hospitals Beachwood Medical CenterUrine hemoglobin detection by automated test stripon 02-02-1649Rkqvqmqmyv Auto test strip Ql (U) NegativeNEGATIVEHolzer HospitalAlanine aminotransferase [Enzymatic activity/volume] in Serum or PlasmaOrdered By: Varun Glass on 70-65-1853IAK [Catalytic activity/Vol]7 U/L7-52[facility] Albumin [Mass/volume] in Serum or Plasma by Bromocresol green (BCG) dye binding methoOrdered By: Varun Glass on 41-20-6137Tcgcvrl BCG dye [Mass/Vol]4.2 g/dL 3.5-5.7FUniversity Hospitals Beachwood Medical CenterAlkaline phosphatase [Enzymatic activity/volume] in Serum or PlasmaOrdered By: Varun Glass on 07-30-0254SMN [Catalytic activity/Vol]46 U/K06-583BvmkyumwqHolzer HospitalAspartate aminotransferase [Enzymatic activity/volume] in Serum or PlasmaOrdered By: Varun Glass on 43-50-3932TGD [Catalytic activity/Vol]14 U/S67-63DrigikbrlHolzer HospitalAutomated erythrocytes count in urine sediment (number/area) Ordered By: Varun Glass on 86-46-6040VTK Auto (Urine sed) [#/Area]1-2 [HPF]0-4 [facility] HospitalAutomated leukocytes count in urine sediment (number/area)Ordered By: Varun Glass on 90-76-3568HVY Auto (Urine sed) [#/Area] 0-1 [HPF]0-4FUniversity Hospitals Beachwood Medical CenterBasophils Auto (Bld) [#/Vol]Ordered By: Varun Glass on 49-22-5813Ckukkioiw (Bld) [#/Vol]0.0 10*3/uL0.0-0.2 [facility] HospitalBasophils/100 WBC Auto (Bld)Ordered By: Varun Glass on 82-61-8166Iiliufhtr/100 WBC (Bld)0.8 %.[facility] HospitalBilirubin Test strip Ql (U)Ordered By: Varun Glass on 98-89-3361Puyydunjh Ql (U)NegativeNegativeHolzer HospitalBilirubin.total [Mass/volume] in Serum or PlasmaOrdered By: Varun Glass on 01-70-8167Szannyjip [Mass/Vol]0.4 mg/dL0.3-1.0[facility] HospitalCalcium [Mass/volume] in Serum or PlasmaOrdered By: Varun Glass on 56-16-9580Sxrtapx [Mass/Vol]9.1 mg/dL8.6-10.3FUniversity Hospitals Beachwood Medical CenterCarbon dioxide, total [Moles/volume] in Serum or PlasmaOrdered By: Varun Glass on 64-83-6818NW9 [Moles/Vol]26.1 mmol/L21.0-31.0[facility] HospitalChloride [Moles/volume] in Serum or PlasmaOrdered By: Varun Glass on 34-00-7024Vlpsjimy [Moles/Vol]106 mmol/N81-422VdzzdlbhwHolzer HospitalCholesterol [Mass/volume] in Serum or PlasmaOrdered By: Varun Glass on 01-27-2024 Cholesterol [Mass/Vol]185 mg/mY739-154AhrwvlgztHolzer HospitalComment on above:Chol less than 200 mg/dl low riskChol 201-239 mg/dl borderline riskChol 240 mg/dl and greater high riskCholesterol in LDL Calc [Mass/Vol]Ordered By: Varun Glass on 22-24-7554Xvatghtmrmr in LDL [Mass/Vol]111 mg/dL0-100Hol[facility] HospitalComment on above:LDL ATP III CLASSIFICATIONLDL less than 100 mg/dL OptimalLDL 100-129 mg/dL Near or above ippyuagLWX224-890 mg/dL Borderline highLDL 160-189 mg/dL HighLDL greater than 189 mg/dL Very high Cholesterol in VLDL Calc [Mass/Vol]Ordered By: Varun Glass on 01-27-2024 Cholesterol in VLDL [Mass/Vol]19 mg/dLHolzer HospitalColor Auto (U)Ordered By: Varun Glass on 41-08-5453Mewqe (U)YellowYellowHolzer HospitalCreatinine [Mass/volume] in Serum or PlasmaOrdered By: Varun Glass on 60-84-8483Selectmoar [Mass/Vol]0.68 mg/dL0.60-1.20[facility] HospitalEosinophils Auto (Bld) [#/Vol]Ordered By: Varun Glass on 21-13-9570Juxszsuahre (Bld) [#/Vol]0.1 10*3/uL0.0-0.45[facility] HospitalEosinophils/100 WBC Auto (Bld)Ordered By: Varun Glass on 48-27-1749Ecfndhbhhjn/100 WBC (Bld)1.7 %.[facility] Erythrocyte distribution width Auto (RBC) [Ratio]Ordered By: Varun Glass on 79-88-0575Akcfxqpplqu distribution width (RBC) [Ratio]13.3 %11.9-15.3FUniversity Hospitals Beachwood Medical CenterGlobulin Calc (S) [Mass/Vol]Ordered By: Varun Glass on 82-68-0209Podxjxdu (S) [Mass/Vol]2.5 g/dLHolzer Hospital Glucose [Mass/volume] in Serum or PlasmaOrdered By: Varun Glass on 01-27-2024 Glucose [Mass/Vol]94 mg/zD48-908AhigxvmupHolzer HospitalComment on above:ADA recommended reference rangeRandom Glucose Reference Range is dependent on time and content of last meal. Glucose of more than 200 mg/dL in a nonstressed, ambulatory subject supports the diagnosisof Diabetes Mellitus. Glucose mean value [Mass/volume] in Blood Estimated from glycated hemoglobin Ordered By: Varun Glass on 56-19-2255Cpqyzbf glucose Estimated from glycated hemoglobin (Bld) [Mass/Vol]105 mg/dLHolzer HospitalHematocrit Auto (Bld) [Volume fraction]Ordered By: Varun Glass on 59-87-0405Forjctfxum (Bld) [Volume fraction]39.4 %34.0-46.4FUniversity Hospitals Beachwood Medical Center Hemoglobin A1c percentageOrdered By: Varun Glass on 80-30-2648DaC6a (Bld) [Mass fraction]5.3 %4.3-5.6FUniversity Hospitals Beachwood Medical CenterComment on above: Increased risk for diabetes: 5.7 - 6.4diabetes: >6.4glycemic control for adults with diabetes: <7.0Hemoglobin [Mass/volume] in BloodOrdered By: Varun Glass on 01-80-3227Ogtcfxtxdo (Bld) [Mass/Vol]13.2 g/dL11.8-15.4FUniversity Hospitals Beachwood Medical CenterKetones Auto test strip (U) [Mass/Vol]Ordered By: Varun Glass on 70-34-4433Xaoprzv (U) [Mass/Vol]NegativeNegativeHolzer HospitalLaboratory - UrinalysisOrdered By: Varun Glass on 12-55-6146Yoqehqq casts LM Ql (Urine sed)0-8 [LPF]0-8[facility] HospitalLeukocytes [#/volume] corrected for nucleated erythrocytes in Blood by Automated coun Ordered By: Varun Glass on 99-15-8975VCC corrected for nucl RBC Auto (Bld) [#/Vol]5.0 10*3/uL3.8-11.6FUniversity Hospitals Beachwood Medical CenterLymphocytes Auto (Bld) [#/Vol]Ordered By: Varun Glass on 98-63-0833Amorrllfdee (Bld) [#/Vol]2.1 10*3/uL1.00-4.8[facility] HospitalLymphocytes/100 WBC Auto (Bld) Ordered By: Varun Glass on 54-93-6370Tarqaopxmre/100 WBC (Bld)43.1 %.[facility] HospitalMCH Auto (RBC) [Entitic mass]Ordered By: Varun Glass on 29-30-6603IJW (RBC) [Entitic mass]30.5 pg24.7-34.3FUniversity Hospitals Beachwood Medical CenterMCHC Auto (RBC) [Mass/Vol]Ordered By: Varun Glass on 02-18-2119PWUT (RBC) [Mass/Vol]33.6 g/dL32.0-35.0[facility] HospitalMCV Auto (RBC) [Entitic vol]Ordered By: Varun Glass on 71-10-0933LMD (RBC) [Entitic vol]90.7 eM20-737MtdjnqentHolzer HospitalMonocytes Auto (Bld) [#/Vol]Ordered By: Varun Glass on 45-47-5773Wvhbzloue (Bld) [#/Vol]0.4 10*3/uL0.0-0.8Hol[facility] HospitalMonocytes/100 WBC Auto (Bld)Ordered By: Varun Glass on 19-21-3252Zxsztjrhe/100 WBC (Bld)8.5 %.[facility] Neutrophils Auto (Bld) [#/Vol]Ordered By: Varun Glass on 32-56-5434Uztbwxepgxq (Bld) [#/Vol]2.3 10*3/uL1.8-7.7FUniversity Hospitals Beachwood Medical CenterNeutrophils/100 WBC Auto (Bld)Ordered By: Varun Glass on 46-40-3959Smacsgjjfmn/100 WBC (Bld) 45.9 %.[facility] HospitalNitrite Test strip Ql (U)Ordered By: Varun Glass on 46-17-6975Xobisqq Ql (U)NegativeNegativeHolzer HospitalNo Panel InformationOrdered By: Varun Glass on 01-27-2024 Estimated GFR (CKD-EPI)> 60.0 mL/MinHolzer HospitalPharmacy Creatinine Clearance (ChemN/AFUniversity Hospitals Beachwood Medical CenterNucleated erythrocytes [Presence] in Blood by Automated countOrdered By: Varun Glass on 72-27-4866Yggllpnln RBC Auto Ql (Bld)0.1 /100{WBC}0-0.5FUniversity Hospitals Beachwood Medical CenterPlatelet mean volume Auto (Bld) [Entitic vol]Ordered By: Varun Glass on 64-55-3865Qzevglci mean volume (Bld) [Entitic vol]7.1 fL6.3-10.7 [facility] HospitalPlatelets Auto (Bld) [#/Vol]Ordered By: Varun Glass on 97-52-2413Bjnmshweh (Bld) [#/Vol]323 10*3/qT096-638YbrjkoghhHolzer HospitalPotassium [Moles/volume] in Serum or PlasmaOrdered By: Varun Glass on 49-05-9916Kdisvxwbp [Moles/Vol]4.3 mmol/L3.5-5.1FUniversity Hospitals Beachwood Medical CenterProtein Auto test strip (U) [Mass/Vol]Ordered By: Varun Glass on 08-33-8270Bfgccaw (U) [Mass/Vol]NegativeNegativeHolzer HospitalProtein [Mass/volume] in Serum or PlasmaOrdered By: Varun Glass on 09-02-8362Wwtwynq [Mass/Vol]6.7 g/dL6.4-8.9Hol[facility] HospitalRBC Auto (Bld) [#/Vol]Ordered By: Varun Glass on 79-01-8372LWX (Bld) [#/Vol]4.35 10*6/uL3.60-5.00[facility] Centererum or plasma albumin/globulin mass ratioOrdered By: Varun Glass on 01-27-2024 Albumin/Globulin [Mass ratio]1.7 {ratio}[facility] Centererum or plasma anion gap determinationOrdered By: Varun Glass on 13-15-6565Mgwso gap [Moles/Vol]11.2 mmol/L6.0-15.0[facility] Centererum or plasma high density lipoprotein (HDL) cholesterol measurementOrdered By: Varun Glass on 01-17-2698Uqhyevswukr in HDL [Mass/Vol]55 mg/fE47-40WeyhkczqmHolzer HospitalComment on above:HDL CHOL ATP-III CLASSIFICATION Cardiovascular RiskHDL > or equal to 60 mg/dL LOWHDL < 40 mg/dL HIGHSerum or plasma total cholesterol/high density lipoprotein (HDL) cholesterol mass ratOrdered By: Varun Glass on 03-57-5078Rfuguaapobi.total/Cholesterol in HDL [Mass ratio]3.4 {ratio}<5.0[facility] Centerodium [Moles/volume] in Serum or PlasmaOrdered By: Varun Glass on 78-53-6005Egjazd [Moles/Vol]139 mmol/L062-038 [facility] Centerpecific gravity Auto test strip (U) [Rel density]Ordered By: Varun Glass on 44-77-5688Xkfihcwm gravity (U) [Rel density] 1.0271.001-1.030[facility] Centerquamous epithelial cells detection in urine sediment by light microscopyOrdered By: Varun Glass on 74-74-8640Dgacncdzpe cells.squamous LM Ql (Urine sed)3-4 [HPF]0-2FUniversity Hospitals Beachwood Medical CenterThyrotropin [Units/volume] in Serum or PlasmaOrdered By: Varun Glass on 45-68-9301QKU Qn3.22 m[IU]/L0.45-5.33[facility] HospitalTriglyceride [Mass/volume] in Serum or PlasmaOrdered By: Varun Glass on 14-62-0095Accksmivirwl [Mass/Vol]96 mg/dL0-149[facility] Comment on above:TRIG ATP III CLASSIFICATIONTRIG less than 150 mg/dL NormalTRIG 150-199 mg/dL Borderline highTRIG 200-500 mg/dL High TRIG greater than 500 mg/dL Very highStandard traceable to the Center for Disease Conrtrol and Prevention (CDC) test method.Urea nitrogen [Mass/volume] in Serum or PlasmaOrdered By: Varun Glass on 00-83-6059Dbrd nitrogen [Mass/Vol]16 mg/dL7-25Hol[facility] HospitalUrine bacteria detection by automated methodOrdered By: Varun Glass on 16-62-3100Hgglvgta Auto Ql (U)None seen [HPF]None SeenHolzer HospitalUrine clarity by refractometry automatedOrdered By: Varun Glass on 42-06-0095Ygdyxcs Refractometry automated (U)TurbidCleCleveland Clinic Euclid HospitalUrine culture routineOrdered By: Varun Glass on 78-26-8207Csbmeunq identified Cx Nom (U)No Growth 2 DaysHolzer HospitalUrine glucose measurement by automated test strip (mass/volume) Ordered By: Varun Glass on 32-55-0876Zmrrlka Auto test strip (U) [Mass/Vol] Normal mg/dLNormFayette County Memorial HospitalUrine hemoglobin detection by automated test stripOrdered By: Varun Glass on 15-85-5120Xrxxhvmnej Auto test strip Ql (U)NegativeNegativeHolzer HospitalUrine leukocyte esterase detection by automated test stripOrdered By: Varun Glass on 01-27-2024 Leukocyte esterase Auto test strip Ql (U)NegativeNegUC West Chester HospitalUrobilinogen Auto test strip (U) [Mass/Vol]Ordered By: Varun Glass on 29-52-8339Cvtcsywfrczu (U) [Mass/Vol]Normal mg/dLNormFayette County Memorial HospitalWBC Auto (Bld) [#/Vol]Ordered By: Varun Glass on 36-34-4875LDN (Bld) [#/Vol]5.0 10*3/uL3.8-11.6FUniversity Hospitals Beachwood Medical Center pH Auto test strip (U)Ordered By: Varun Glass on 25-36-4275nW (U)5.5 [pH] 5.0-9.0Holzer HospitalCNOVon 66-08-1542THBDEvgivr Visit (DERMCC) GÓMEZ SMITHARASELI ([id number]) 1975 F Date Time Provider Department 09/11/23 8:15 AM GUY ALBA DERMCC During your visit today, we recorded the following information about you: Guy Alba MD 09/11/2023 9:16 AM Signed 48 year old female here for itchy scaly rash Present since April Location Bottoms of feet and bilateral hands This began when her father was ill and [employer] [facility] CenterElli Segal MD Was prescribed clobetasol which did not help Used it twice daily for a few weeks 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 Social History Tobacco Use Smoking status: Former Types: Cigarettes Smokeless tobacco: Never Vaping Use Vaping Use: Never used Substance Use Topics Alcohol use: Yes Comment: Social/Occ Allergies: ALLERGIES Allergen Reactions Clarithromycin GI Upset Current Outpatient Medications on File Prior to Visit Medication Sig ALPRAZolam (XANAX) 1 mg tablet as needed. cyclobenzaprine (FLEXERIL) 10 mg tablet daily at bedtime. FLUoxetine HCl (PROZAC) 40 mg capsule once daily. No current facility-administered medications on file prior to visit. PE: Limited exam. With Jose R General: no acute distress Mood: alert and oriented X's 3 Hair/Scalp: normal Face: normal Eyes/eyelids: normal Lips/Oral mucosa: normal Neck: normal R/L upper extremity: Hyperlinear palms Two scaly patches right palm, 1 small scaly patch left palm R/L lower extremity: Bilateral soles with thick hyperkeratotic scale, erythematous scaly fissured plaques Right Lateral Plantar Surface A/P: Rash and nonspecific skin eruption Right Lateral Plantar Surface SKIN / NAIL BIOPSY - Right Lateral Plantar Surface Type of biopsy: punch Informed consent: discussed and consent obtained Timeout: patient name, date of , surgical site, and procedure verified Procedure prep: Patient was prepped and draped in usual sterile fashion Prep type: Isopropyl alcohol Anesthesia: the lesion was anesthetized in a standard fashion Anesthetic: 1% lidocaine w/ epinephrine 1-100,000 buffered w/ 8.4% NaHCO3 Punch size: 3 mm Suture size: 4-0 Suture type: Prolene (polypropylene) Hemostasis achieved with: suture and aluminum chloride Outcome: patient tolerated procedure well Post-procedure details: sterile dressing applied and wound care instructions given Dressing type: bandage and petrolatum Specimen A - SURGICAL PATHOLOGY SKIN ONLY Palms more consistent with eczema Cracked and fissured in wintertime Tried clobetasol in the past twice daily for a few weeks no relief Feet more consistent with psoriasis She still does not have a diagnosis We discussed pros and cons of biopsy versus empiric therapy She is very very concerned about immunosuppressive medications [facility] decision to proceed with biopsy today Start betamethasone augmented two times daily Soak feet, pat dry, Aquaphor/Vaseline, thick layer of cream, cover feet Discussed treatment options including light therapy RTC 14 days suture removal Pt voiced understanding Medical Decision Making: Medical Decision Making Level: 1 - N/A The documentation for this note was completed by Alexey Montoya MA acting as scribe for Guy Alba MD. September 11, 2023 8:08 AM. I agree with the Chief Complaint, ROS, and Past Histories independently gathered by the clinical network support administrator and the remaining scribed note accurately describes my personal service to the patient. Guy Alba MD Allergies As of Date: 09/11/2023 Noted Allergy Reaction CLARITHROMYCIN 11/24/2019 8 - GI Upset Date Reviewed: 09/11/2023 Reviewed by: Alexey Montoya MA - Fully Assessed Reason for Visit: New Patient [172] Primary Visit Diagnosis:Rash and nonspecific skin eruption [R21] Order(s):SKIN / NAIL BIOPSY [2095310] Order #: [id number]: 1 SURGICAL PATHOLOGY SKIN ONLY [VOF5492] Order #: [id number] STANDING SURGICAL PATHOLOGY SKIN ONLY [WYT6834] Order #: [id number] betamethasone dipropionate, augmented (DIPROLENE) 0.05 % creamApply to affected area two times a day.Disp: 50 gRfl: 3 Prescriptions as of 09/11/2023 - betamethasone dipropionate, augmented (DIPROLENE) 0.05 % cream Apply to affected area two times a day. - ALPRAZolam (XANAX) 1 mg tablet as needed. - cyclobenzaprine (FLEXERIL) 10 mg tablet daily at bedtime. - FLUoxetine HCl (PROZAC) 40 mg capsule once daily. Problem List As Of Date: 09/11/2023 (None) Prescriptions ordered this encounter Disp Refills Start End BETAMETHASONE, AUGMENTED 0.05 % TOPI* 50 g 3 09/11/2023 Route: TOPICAL Sig: Apply to affected area two times a day. (more content not included)...NormalSt. Anthony'S HospitalXR chest 2V*on 52-96-2723YH chest 2V*[facility] [employer] Other XR chest 2V*[facility] [employer] Other XR chest 2V*[address] [place] [address] [employer] Other XR chest 2V*[place], [place] [address] Other XR chest 2V*[facility] [employer] Other XR chest 2V*[facility] [employer] Other XR chest 2V*Patient: Araseli Fernandez MR#[facility] [employer] Other XR chest 2V*: [id number] [employer] Other XR chest 2V*: 1975 Acct:[id number] [employer] Other XR chest 2V*Age/Sex: 47 / F ADM Date: 01/27/23Aldrich [employer] Other XR chest 2V*Loc: XD Room: Type: [facility] [employer] Other XR chest 2V*Attending Dr: Varun Glass [facility] [employer] Other XR chest 2V*Copies to: Varun Glass,[employer] Other XR chest 2V*Ordering Provider: Varun GlassVigme Other XR chest 2V*Date of Service: 01/27/23[facility] [employer] Other XR chest 2V* XR/XR chest 2V*: R07.9,Z87.898Aldrich [employer] Other XR chest 2V*Chest 2 viewsAldrich [employer] Other XR chest 2V*CLINICAL HISTORY: Left arm pain and numbness for 2 weeks.[facility] Other XR chest 2V*COMPARISON: Chest 11/22/2017[facility] [employer] Other XR chest 2V*FINDINGS:[facility] Other XR chest 2V*Heart normal in size. Lungs are clear. No free air.[facility] Other XR chest 2V* XR/XR chest 2V*[facility] Other XR chest 2V*IMPRESSION:[facility] Other XR chest 2V*NO ACUTE CARDIOPULMONARY ABNORMALITY.[facility] Other XR chest 2V*Impression dictated by: Gabe Henao Jr., D.O.01/27/2023 4:22 [facility]The [facility] Other XR chest 2V*Dictation Location: [address] [employer] Other XR chest 2V*Transcribed By: CHELSEY 01/27/[address] [place] [address] [employer] Other xr chest 2V*Dictated By: Gabe Henao Jr, DO 01/27/[address] [place] [address] [employer] Other xr chest 2V*Signed By:[facility] [employer] Other xr chest 2V*01/27/[address] [place] [address] [employer] Other Basophils Auto (Bld) [#/Vol]Ordered By: Varun Glass on 44-87-5153Jnhpzanmp (Bld) [#/Vol]0.0 10*3/uL0.0-0.2FUniversity Hospitals Beachwood Medical CenterBasophils/100 WBC Auto (Bld)Ordered By: Varun Glass on 10-28-2022 Basophils/100 WBC (Bld)0.8 %.[facility]zer HospitalBilirubin Test strip Ql (U)Ordered By: Varun Glass on 73-82-6076Qzrxutjsc Ql (U)Negative NegativeHolzer HospitalBody fluid albumin measurement (mass/volume)Ordered By: Varun Glass on 21-57-2119Dfwtajo (Body fld) [Mass/Vol] 3.8 g/dL3.2-5.5FUniversity Hospitals Beachwood Medical CenterCholesterol [Mass/volume] in Serum or PlasmaOrdered By: Varun Glass on 74-90-7481Cvuswmrboqj [Mass/Vol]184 mg/zQ134-787RahunymefHolzer HospitalComment on above:Chol less than 200 mg/dl low riskChol 201-239 mg/dl borderline riskChol 240 mg/dl and greater high riskCholesterol in LDL Calc [Mass/Vol]Ordered By: Varun Glass on 10-28-2022 Cholesterol in LDL [Mass/Vol]106 mg/dL0-100[facility] Comment on above:LDL ATP III CLASSIFICATIONLDL less than 100 mg/dL OptimalLDL 100-129 mg/dL Near or above mbdzbsoXLQ117-642 mg/dL Borderline highLDL 160-189 mg/dL HighLDL greater than 189 mg/dL Very highCholesterol in VLDL Calc [Mass/Vol]Ordered By: Varun Glass on 98-48-7562Bgadfhiquqk in VLDL [Mass/Vol]10 mg/dLHolzer HospitalColor Auto (U)Ordered By: Varun Glass on 55-64-2917Ydcit (U)YellowYellowHolzer HospitalCreatinine and Glomerular filtration rate.predicted panel (S/P/Bld)Ordered By: Varun Glass on 11-96-5637Ahlrhhapul [Mass/Vol]0.65 mg/dL0.44-1.03Holzer HospitalEosinophils Auto (Bld) [#/Vol]Ordered By: Varun Glass on 10-28-2022 Eosinophils (Bld) [#/Vol]0.0 10*3/uL0.0-0.45[facility] Eosinophils/100 WBC Auto (Bld)Ordered By: Varun Glass on 10-28-2022 Eosinophils/100 WBC (Bld)0.6 %.[facility]zer HospitalErythrocyte distribution width Auto (RBC) [Ratio]Ordered By: Varun Glass on 10-28-2022 Erythrocyte distribution width (RBC) [Ratio]14.0 %11.9-15.3FUniversity Hospitals Beachwood Medical CenterEstimated glomerular filtration rate (GFR) non- Ordered By: Varun Glass on 03-32-7054OZH/1.73 sq M.predicted among non-blacks MDRD (S/P/Bld) [Vol rate/Area]> 60 mL/MinHolzer Hospital Globulin Calc (S) [Mass/Vol]Ordered By: Varun Glass on 31-87-8428Akhzdodh (S) [Mass/Vol]2.7 g/dLHolzer HospitalHematocrit Auto (Bld) [Volume fraction]Ordered By: Varun Glass on 49-74-9746Wodjkufgwa (Bld) [Volume fraction]38.4 %34.0-46.4FUniversity Hospitals Beachwood Medical CenterHemoglobin [Mass/volume] in BloodOrdered By: Varun Glass on 17-99-5523Mlflaaqwyj (Bld) [Mass/Vol]12.8 g/dL11.8-15.4FUniversity Hospitals Beachwood Medical CenterKetones Auto test strip (U) [Mass/Vol]Ordered By: Varun Glass on 35-26-6153Zjfpzzl (U) [Mass/Vol] NegativeNegativeHolzer HospitalLeukocytes [#/volume] corrected for nucleated erythrocytes in Blood by Automated counOrdered By: Varun Glass on 45-08-0749DNN corrected for nucl RBC Auto (Bld) [#/Vol]5.4 10*3/uL3.8-11.6 Holzer HospitalLymphocytes Auto (Bld) [#/Vol]Ordered By: Varun Glass on 36-55-0195Dcjgbdudzkt (Bld) [#/Vol]2.0 10*3/uL1.00-4.8Holzer HospitalLymphocytes/100 WBC Auto (Bld)Ordered By: Varun Glass on 55-78-0440Lljsidpflbu/100 WBC (Bld)36.3 %.[facility] Auto (RBC) [Entitic mass]Ordered By: Varun Glass on 05-53-6453HQM (RBC) [Entitic mass]30.6 pg24.7-34.3FUniversity Hospitals Beachwood Medical CenterMCHC Auto (RBC) [Mass/Vol]Ordered By: Varun Glass on 99-40-9611JALD (RBC) [Mass/Vol]33.4 g/dL 32.0-35.0Holzer HospitalMCV Auto (RBC) [Entitic vol]Ordered By: Varun Glass on 06-61-1773KDR (RBC) [Entitic vol]91.8 cU68-842IroprjcgvHolzer HospitalMonocytes Auto (Bld) [#/Vol]Ordered By: Varun Glass on 74-62-2641Hklczrfca (Bld) [#/Vol]0.4 10*3/uL0.0-0.8Holzer HospitalMonocytes/100 WBC Auto (Bld)Ordered By: Varun Glass on 10-28-2022 Monocytes/100 WBC (Bld)7.8 %.Holzer HospitalNeutrophils Auto (Bld) [#/Vol]Ordered By: Varun Glass on 65-55-2467Uslalizrlnu (Bld) [#/Vol]3.0 10*3/uL1.8-7.7FUniversity Hospitals Beachwood Medical CenterNeutrophils/100 WBC Auto (Bld) Ordered By: Varun Glass on 75-05-2449Gqoraydbzfi/100 WBC (Bld)54.5 %.Holzer HospitalNitrite Test strip Ql (U)Ordered By: Varun Glass on 77-04-5938Ekcplxm Ql (U)NegativeNegativeHolzer HospitalNo Panel InformationOrdered By: Varun Glass on 36-88-3676Yuisrhjsm GFR ()> 60 mL/MinHolzer HospitalComment on above:GFR estimated reference range: According to KDOQI guidelines, <60 ml/min/1.73m2 is sufficient todiagnose a patient with chronic kidney disease.Pharmacy Creatinine Clearance (ChemN/[facility] Main CampusNucleated erythrocytes [Presence] in Blood by Automated countOrdered By: Varun Glass on 10-28-2022 Nucleated RBC Auto Ql (Bld)0.3 /100{WBC}0-0.5FUniversity Hospitals Beachwood Medical Center Platelet mean volume Auto (Bld) [Entitic vol]Ordered By: Varun Glass on 68-29-0466Prwsaohv mean volume (Bld) [Entitic vol]7.3 fL6.3-10.7FUniversity Hospitals Beachwood Medical CenterPlatelets Auto (Bld) [#/Vol]Ordered By: Varun Glass on 57-10-4657Mtqmkpfst (Bld) [#/Vol]309 10*3/zK617-756WvjgwsjpaHolzer HospitalProtein Auto test strip (U) [Mass/Vol]Ordered By: Varun Glass on 58-35-2167Mlnefod (U) [Mass/Vol]NegativeNegativeHolzer HospitalProtein [Mass/volume] in Serum or PlasmaOrdered By: Varun Glass on 40-72-0913Azbbzkb [Mass/Vol]6.5 g/dL6.1-7.9Holzer HospitalRBC Auto (Bld) [#/Vol]Ordered By: Varun Glass on 99-73-5449PDP (Bld) [#/Vol]4.19 10*6/uL3.60-5.00[facility] Centererum or plasma alanine aminotransferase measurement without P-5'-P (enzymatic activiOrdered By: Varun Glass on 45-93-6040KEK No additional P-5'-P [Catalytic activity/Vol]10 U/L10-60 [facility] Centererum or plasma albumin/globulin mass ratio Ordered By: Varun Glass on 32-26-4250Soybmle/Globulin [Mass ratio]1.4 {ratio} [facility] Centererum or plasma alkaline phosphatase measurement (enzymatic activity/volume)Ordered By: Varun Glass on 74-57-8905HCQ [Catalytic activity/Vol]37 U/X93-96ChelyfzujThe University of [facility] Medical Centererum or plasma anion gap determinationOrdered By: Varun Glass on 52-37-4682Eelni gap [Moles/Vol]12.4 mmol/L6.0-15.0[facility] Centererum or plasma aspartate aminotransferase measurement (enzymatic activity/volume)Ordered By: Varun Glass on 73-80-7300DPN [Catalytic activity/Vol]15 U/J84-48OakuzmftpThe University of [facility] Medical Centererum or plasma calcium measurement (mass/volume)Ordered By: Varun Glass on 44-21-4143Caquije [Mass/Vol]9.1 mg/dL8.2-10.2FLancaster Municipal Hospitalerum or plasma chloride measurement (moles/volume) Ordered By: Varun Glass on 57-52-5747Wpajiwiq [Moles/Vol]104 mmol/L95-114 [facility] Centererum or plasma glucose measurement (mass/volume)Ordered By: Varun Glass on 45-63-6429Dgigurc [Mass/Vol]105 mg/dL 70-100Holzer HospitalComment on above:ADA recommended reference rangeRandom Glucose Reference Range is dependent on time and content of last meal. Glucose of more than 200 mg/dL in a nonstressed, ambulatory subject supports the diagnosisof Diabetes Mellitus.Serum or plasma high density lipoprotein (HDL) cholesterol measurementOrdered By: Varun Glass on 10-28-2022 Cholesterol in HDL [Mass/Vol]68 mg/iZ48-81PkrqnxpexHolzer Hospital Comment on above:HDL CHOL ATP-III CLASSIFICATION Cardiovascular RiskHDL > or equal to 60 mg/dL LOWHDL < 40 mg/dL HIGHSerum or plasma potassium measurement (moles/volume)Ordered By: Varun Glass on 37-46-4458Perhnrudk [Moles/Vol]3.9 mmol/L3.5-5.1FLancaster Municipal Hospitalerum or plasma sodium measurement (moles/volume)Ordered By: Varun Glass on 47-63-1360Ivkfup [Moles/Vol]136 mmol/I563-175YfaxloslzThe University of Toledo Medical Centererum or plasma total bilirubin measurement (mass/volume)Ordered By: Varun Glass on 06-12-4519Ddvfsgdhq [Mass/Vol]0.6 mg/dL0.3-1.2FLancaster Municipal Hospitalerum or plasma total carbon dioxide measurement (moles/volume)Ordered By: Varun Glass on 10-28-2022 CO2 [Moles/Vol]23.5 mmol/L22.0-30.0[facility] Medical Centererum or plasma total cholesterol/high density lipoprotein (HDL) cholesterol mass rat Ordered By: Varun Glass on 43-40-8136Upaekkbdamu.total/Cholesterol in HDL [Mass ratio]2.7 {ratio}<5.0[facility] Centererum or plasma urea nitrogen measurement (mass/volume)Ordered By: Varun Glass on 23-51-6310Zcbv nitrogen [Mass/Vol]11 mg/dL9-23The [facility] Medical Centerpecific gravity Auto test strip (U) [Rel density]Ordered By: Varun Glass on 06-22-9078Cwlyppto gravity (U) [Rel density]1.0231.001-1.030Holzer HospitalTS DL <= 0.005 mIU/L QnOrdered By: Varun Glass on 18-13-9549LHR Qn2.90 m[IU]/L 0.45-5.33Holzer HospitalTriglyceride [Mass/volume] in Serum or PlasmaOrdered By: Varun Glass on 66-19-6381Syqeelqnzovp [Mass/Vol]52 mg/dL 35-149Holzer HospitalComment on above:TRIG ATP III CLASSIFICATIONTRIG less than 150 mg/dL NormalTRIG 150-199 mg/dL Borderline highTRIG 200-500 mg/dL High TRIG greater than 500 mg/dL Very highStandard traceable to the Center for Disease Conrtrol and Prevention (CDC) test method. Urine clarity by refractometry automatedOrdered By: Varun Glass on 10-28-2022 Clarity Refractometry automated (U)ClearCleCleveland Clinic [facility] Urine glucose measurement by automated test strip (mass/volume)Ordered By: Varun Glass on 72-34-0372Owyjefq Auto test strip (U) [Mass/Vol]Normal mg/dLSelect Medical Specialty Hospital - Cleveland-FairhillUrine hemoglobin detection by automated test stripOrdered By: Varun Glass on 57-75-9658Rgitqvqsya Auto test strip Ql (U) NegativeNegUC West Chester HospitalUrine leukocyte esterase detection by automated test stripOrdered By: Varun Glass on 65-28-3744Cnqsksugr esterase Auto test strip Ql (U)NegativeNegUC West Chester HospitalUrobilinogen Auto test strip (U) [Mass/Vol]Ordered By: Varun Glass on 89-29-8712Kihyzbuvfizq (U) [Mass/Vol]Normal mg/dLNoMercy Health Anderson HospitalWBC Auto (Bld) [#/Vol]Ordered By: Varun Glass on 95-15-2014IZR (Bld) [#/Vol]5.4 10*3/uL3.8-11.6FUniversity Hospitals Beachwood Medical CenterpH Auto test strip (U)Ordered By: Varun Glass on 51-24-8793wP (U)7.0 [pH]5.0-9.0Holzer HospitalHCG ( test) IA.rapid Ql (U)Ordered By: Jose Martin Herman on 10-74-1127CYX ( test) Ql (U)NegativeHolzer HospitalCoding Summary.on 22-07-9304Xddvrt Summary. CD:870374NZ:6219471TDh0gEt+PGhlYWQ+AW8AWBTbZ52rtIArkG5PG8hLWL2OAGFVIRSIDQ8XIK9ar GQ7ZZmfO1ZptcXy [file] ZXIt (more content not included)...[facility] HospitalCoding Summary.on 65-61-9242Oszwyw Summary. CD:110021PQ:1393209PWz0wCt+PGhlYWQ+PE1JVWNpI76stMHecL8VT5dAGC3MCNPMJOZQVT9KVI8mx OM0XPrjH8VfieBq [file] J2Jv (more content not included)...[facility] HospitalLegal Correspondence Officeon 04-14-6405Gjder Correspondence Office [id number]#1.00CD:127[facility] HospitalConsent for Treatmenton 20-74-4175Gzmevgv for Treatment [id number]#1.00CD:127[facility] HospitalConsent for [id number]#1.00CD:127 [facility] HospitalHIPAA Forms Officeon 96-76-6438LWOEC Forms [id number]#1.00CD:[address] [place], [place] [address]Legal Correspondence Officeon 52-74-3911Pflfa Correspondence [id number]#1.00CD:[address] [place], [place] [address]Office/Clinic Note-Physicianon 25-18-4153Kwwujs/Clinic Note-[id number]#1.00CD:[address] [place], [place] [address]Orders Officeon 05-61-8720Jkrlhi Office [id number]#1.00CD:[address] [place], [place] [address]Patient Correspondenceon 00-32-2158Rgkoiyu Correspondence [id number]#1.00CD:[address] [place], [place] [address]Patient [id number]#1.00CD:127 [facility] HospitalPatient Correspondence [id number]#1.00CD:[address] [place], [place] [address]Patient [id number]#1.00CD:127 [facility] HospitalPatient Correspondence [id number]#1.00CD:127[facility] HospitalPatient History Officeon 48-66-0081Muuicff History Office [id number]#1.00CD:[address] [place], [place] [address]Physician Orderon 17-09-7451Kvrymlkqb Order [id number]#1.00CD:127[facility] HospitalPhysician [id number]#1.00CD:127[facility] HospitalXR Spine Lumbar Complete Including Bendion 09-11-2022 XR Spine Lumbar Complete Including BendiExam Date/Time: 09/11/2022 15:06 EST Reason for Exam: M54.17 Report IMPRESSION: NEGATIVE STUDY. CLINICAL INFORMATION: M54.17 COMPARISON: NONE. COMMENT: 9 views. Lumbar vertebral bodies are normal in height and alignment on flexion, and, and neutral positioning. No fracture, dislocation, bone lesion identified. FINAL REPORT Dictated: 09/11/2022 4:03 pm Shaan Swan MD Signed (Electronic Signature): 09/11/2022 4:03 pm Signed by: Shaan Swan MD Transcribed by: ORALIA Technologist: AshleyOhioHealth Grant Medical CenterOutside Records Officeon 04-28-2057Utoktdp Records Office [id number]#1.00CD:127[facility] HospitalRadiology Outside Office Copyon 39-61-2518Joqvdmxdu Outside Office Copy [id number]#1.00CD:127[facility] HospitalOutside Records Officeon 85-62-1284Pnrtrhe Records Office [id number]#1.00CD:[address] [place], [place] [address]Radiology Outside Office Copyon 56-99-3025Sjzkioqlx Outside Office Copy [id number]#1.00CD:[address] [place], [place] [address]Referrals Officeon 06-24-7153Gcolavvrg Office [id number]#1.00CD:[address] [place], [place] [address]Pregnancy Test, Urineon 75-86-5592Rbgs HCG ( test) Ql (U)Negative [facility] Other Formson 30-34-1117Hdxhl [id number]#1.00CD:[address] [place], [place] [address]Ambulatory Visit Summaryon 11-78-3451Gfjkeamalo Visit Summary PASTORACRISELDAAbdirashidARASELI SMITH :1975 Visit Date:11/27/2021 Ambulatory Visit Instructions Your Diagnosis OAB (overactive bladder) Feeling of incomplete bladder emptying Stress incontinence BMI 33.0-33.9,adult Tests Performed Urnls Dip Stick Auto w/o Microscopy POC 87595 Your Care Team Attending Physician - Rhonda Garcia MD Primary Care Physician - Varun Glass DO This Is Your Medications List mirabegron (Myrbetriq 25 mg oral tablet, extended release) Contact prescribing physician if questions or concerns alprazolam (Xanax) ascorbic acid (Vitamin C) elderberry ergocalciferol (Vitamin D) fluoxetine (Prozac 20 mg Cap) tizanidine (Zanaflex) Procedures Performed section. Discharge Vitals Heart Rate (Peripheral) 68 Respiratory Rate 16 Blood Pressure 125/89 Height 162 cm Height 162.0 cm Weight 88.1 kg Weight 88.1 kg BMI 33.57 What to do next Scheduled Follow-Up Appointments Thursday 11:15 AM EDT With: Rhonda Garcia MD Where[facility] HospitalPatient Educationon 56-66-2965Cpmnuez EducationNutrition Calorie Counting for Weight Loss Calories are units of energy. Your body needs a certain amount of calories from food to keep you going throughout the day. When you eat more calories than your body needs, your body stores the extra calories as fat. When you eat fewer calories than your body needs, your body whaley fat to get the energy it needs. Calorie counting means keeping track of how many calories you eat and drink each day. Calorie counting can be helpful if you need to lose weight. If you make sure to eat fewer calories than your bodyneeds, you should lose weight. Ask your health care provider what a healthy weight is for you. For calorie counting to work, you will need to eat the right number of calories in a day in order to lose a healthy amount of weight per week. A dietitian can help you determine how many calories youneed in a day and will give you suggestions on how to reach your calorie goal. ? A healthy amount of weight to lose per week is usually 1?2 lb (0.5?0.9 kg). This usually means that your daily calorie intake should be reduced by 500?750 calories. ? Eating 1,200 ? 1,500 calories per day can help most women lose weight. ? Eating 1,500 ? 1,800 calories per day can help most men lose weight. What is my plan? My goal is to have calories per day. If I have this many calories per day, I should lose around pounds per week. What do I need to know about calorie counting? In order to meet your daily calorie goal, you will need to: ? Find out how many calories are in each food you would like to eat. Try to do this before you eat. ? Decide how much of the food you plan to eat. ? Write down what you ate and how many calories it had. Doing this is called keeping a food log. To successfully lose weight, it is important to balance calorie counting with a healthy lifestyle that includes regular activity. Aim for 150 minutes of moderate exercise (such as walking) or 75 minutes of vigorous exercise (such as running) each week. Where do I find calorie information? The number of calories in a food can be found on a Nutrition Facts label. If a food does not have aNutrition Facts label, try to look up the calories online or ask your dietitian for help. Remember that calories are listed per serving. If you choose to have more than one serving of a food, you will have to multiply the calories per serving by the amount of servings you plan to eat. Forexample, the label on a package of bread might say that a serving size is 1 slice and that there are 90 calories in a serving. If you eat 1 slice, you will have eaten 90 calories. If you eat 2 slices, you will have eaten 180 calories. How do I keep a food log? Immediately after each meal, record the following information in your food log: ? What you ate. Don't forget to include toppings, sauces, and other extras on the food. ? How much you ate. This can be measured in cups, ounces, or number of items. ? How many calories each food and drink had. ? The total number of calories in the meal. Keep your food log near you, such as in a small notebook in your pocket, or use a mobile sandra or website. Some programs will calculate calories for you and show you how many calories you have left forthe day to meet your goal. What are some calorie counting tips? ? Use your calories on foods and drinks that will fill you up and not leave you hungry: ? Some examples of foods that fill you up are nuts and nut butters, vegetables, lean proteins, and high-fiber foods like whole grains. High-fiber foods are foods with more than 5 g fiber per serving. ? Drinks such as sodas, specialty coffee drinks, alcohol, and juices have a lot of calories, yet donot fill you up. ? Eat nutritious foods and avoid empty calories. Empty calories are calories you get from foods or beverages that do not have many vitamins or protein, such as candy, sweets, and soda. It is better to have a nutritious high-calorie food (such as an avocado) than a food with few nutrients (such as abag of chips). ? Know how many calories are in the foods you eat most often. This will help you calculate calorie counts faster. ? Pay attention to calories in drinks. Low-calorie drinks include water and unsweetened drinks. ? Pay attention to nutrition labels for low fat or fat free foods. These foods sometimes have the same amount of calories or more calories than the full fat versions. They also often have added sugar, starch, or salt, to make up for flavor that was removed with the fat. ? Find a way of tracking calories that works for you. Get creative. Try different apps or programs if writing down calories does not work for you. What are some portion control tips? ? Know how many calories are in a serving. This will help you know how many servings of a certain food you can have. ? Use a measuring cup to measure serving sizes. You could (more content not included)...[facility] HospitalUrology Office/Clinic Noteon 66-92-2658Wpkjsdk Office/Clinic NoteChief Complaint New Pt *Incontinence HPI Staff Pt is a new pt. Never before seen in our office. Here today due to incontinence. Doesn't feel empty. PVR today is 34ml Mild frequency, occasional double voids. Every 2hrs. Gets up 1-2x/night to void. Denies urgency. Denies pain, burning and/or visible blood in urine. Weaker stream at times. Occasional mild intermittent leaking when coughing/laughing. Denies Hx of UTI's. History of Present Illness Tests Reviewed: Reviewed UA, new patient paperwork I have reviewed the previous health record information and history for this patient I have reviewed and verified the staff HPI to be accurate for this encounter. There have been no associated fever, chills, flank pain, or blood in the urine. . Review of Systems PHQ Score Initial Depression Screen Score: 0 ROS - Provider Constitutional: denies weight loss, denies hot flashes. Eyes: denies eye problems. Gastrointestinal: denies nausea, denies vomiting. + significant constipation Cardiovascular: denies chest pain or angina. Integumentary: no dryness Musculoskeletal: denies musculoskeletal symptoms. ENMT: denies otolaryngeal symptoms. Respiratory: no shortness of breath. Heme/Lymph: denies easy bleeding tendency, denies easy bruising tendency. Psychiatric: no confusion, no anxiety. Genitourinary: see HPI Physical Exam Vitals & Measurements HR: 68(Peripheral) RR: 16 BP: 125/89 HT: 162 cm HT: 162.0 cm WT: 88.1 kg WT: 88.1 kg BMI: 33.57 General Appearance: alert , no acute distress, well nourished, well developed female. Head: normocephalic . Eyes: normal orbit and globe. ENMT: normal examination of external ears. Chest: symmetric chest rise, respirations non labored . Cardiovascular: regular rate and rhythm. Abdomen: soft, non distended, no tenderness Genitourinary: bladder nonpalpable, no flank tenderness. Skin: warm, dry, no bruising. Psychiatric: cooperative, affect appropriate for age, normal judgement, euthymic mood. Assessment/Plan 1. OAB (overactive bladder) (N32.81: Overactive bladder) Frequency, feeling of needing to void. Denies leakage in between. Constipation - no BMs x 3-4 days at time. No frequent UTIs or dysuria.No menopause yet. 2 vaginal deliveries, 1 , denies POPsx. Empties bladder well as is evidenced by their PVR of 34 ml. Low suspicion for bladder cancer given no family hx, no gross/microhematuria or risk factors other than prior tobacco use. No evidence of UTI on UA today We discussed the pathophysiology of overactive bladder. We discussed possible treatment options including doing nothing, Kegels/physical therapy +/- biofeedback, and trial of medication. She was instructed on doing 3 Kegels when she gets the urge to void before going to the bathroom in an attempt to control her urinary urges. She should exercise her pelvic floor muscles by doing 30-60 repetitionsper day. She was counseled regarding bladder retraining, diet choices, and fluid restriction. Treatment options and plan of care discussed with the patient in detail. Patient was informed that first line treatment is behavioral therapy. This includes: - Fluid balancing and sometimes restriction - most women find that a 25% reduction of their fluid intake reduces urinary frequency and urgency - Reducing caffeine or other bladder stimulants will increase the success of these modifications -Bladder retraining - she was given instructions on her bladder retraining -Delayed voiding to help defer the overwhelming urge -Pelvic floor muscle exercises - using biofeedback with pelvic physical therapy or on her own at home Patient was informed that second line treatment includes medications.Patient was informed that we would be more than happy to start her on medication if behavioral modification is not sufficient to control her bothersome symptoms. We discussed Mirabegron and that the side effects include possible increase in blood pressure in a small minority of patients, however insurance does not always cover this. We also discussed anticholinergic medications which can have the side effects of dry eyes, dry mouth, constipation and rarely cognitive changes. We discussed anticholinergic medications. Side effects and appropriate usage of the medication were discussed with the patient in detail which include, but are not limited to, dry mouth, constipation, visual disturbances, urinary retention, and exacerbation of urinary symptoms. I instructed the patient to contact me immediately if he has any significant side effects and discontinue the medication. -Will try mirabegron 25 mg daily, will call if cost an issue so we can try financial program. Do not recommend anticholinergics given chronic constipation -Pelvic floor therapy education provided -Bowel regimen discussed -May be secondary to prozac started a year ago when these sx started. Will try the above first, if unsuccessful would recommend discussing alterna (more content not included)...[facility] HospitalComment on above:Result Comment: Electronically Signed By: Rhonda Garcia MD\.br\Date and Time Signed: 11/27/21 10:55EST\.br\Electronically Co-Signed By: Laine Cuello MA\.br\Date and Time Co-Signed: 11/27/21 10:46 ESTCovid-19 PCR ([facility])on 08-13-2021 SARS-CoV-2 (COVID-19) RNA VALENTE+probe Ql (Unsp spec)DetectedCritically abnormalNOT DETECTEDThe [facility] HospitalComment on above:Result Comment: This test is not yet approved or cleared by the [place] FDA. When there are no FDA-approved or cleared tests available, and other criteria are met, FDA can make tests available under an emergency access mechanism called an Emergency Use Authorization (EUA). The EUA for this test is supported by the [place] of Health and Human Service's (HHS's) declaration that circumstances exist to justify the emergency use of in vitro diagnostics for the detection and/or diagnosis of the virus that causes COVID-19. This EUA will remain in effect (meaning this test can be used) for the duration of the COVID-19 declaration justifying emergency of IVDs, unless it is terminated or revoked by FDA (after which the test may no longer be used).Performed By: #### CVDTBH #### [facility] [address] [address] [address] Kel Lara Vital Signs Date TimeVital SignValuePerforming KojqnfxwmCgevovrp98-58-6677 10:58-0500Body wokkif981.02 cmDavichris Glass DO Work Phone: [phone]11-07-2025 10:58-0500 Body mass index (BMI) [Ratio]33.6 kg/i6Yared Girvin DO Work Phone: [phone])[address]11-07-2025 10:58-0500 Body vjiytauhkwm23 [degF]Varun Glass DO Work Phone: [phone] [place], [place] [address]258311-07-2025 10:58-0500 Body .18 kgDavichris Glass DO Work Phone: [phone])[address] [place], [place] 9258311-07-2025 10:58-0500 Diastolic blood mzyvxwva75 mm[Hg]Varun Glass DO Work Phone: [phone]11-07-2025 10:58-0500 Heart rate73 /minDavichris Glass DO Work Phone: [phone])[address] [place], [place] [address]258311-07-2025 10:58-0500 SaO2% (BldA) [Mass fraction]99 %Varun Glass DO Work Phone: [phone]11-07-2025 10:58-0500 Systolic blood snbkicpu274 mm[Hg]Varun Glass DO Work Phone: 1([phone])[address]10-10-2025 10:06-0400 Body gosrli848.6 cmRichard Visci DO Work Phone: [facility] CenterHkrcfnejgx96-02-1282 10:06-0400Body mass index (BMI) [Ratio]33.13 kg/p1Zkwaygh Visci DO Work Phone: [facility]icheSaint [facility] CenterIarmvixyso96-83-8422 10:06-0400Body .54 kgRichard Visci DO Work Phone: [facility] CenterIxbcgnwaud30-46-6567 10:06-0400Diastolic blood tlexnmrt12 mm[Hg]Yesi Clinton DO Work Phone: [facility] CenterDaxmxbrwux78-18-4722 10:06-0400Systolic blood qdqsxigp923 mm[Hg]Yesi Clinton DO Work Phone: [facility] CenterPqbayyyias28-31-5576 10:29-0400Body hsnues710.02 cmDahali Quan DO Work Phone: [phone]08-04-2025 10:29-0400 Body mass index (BMI) [Ratio]33.6 kg/d2Elizg Girrodrigo DO Work Phone: [phone]08-04-2025 10:29-0400 Body gqimyxymatt22.6 [degF]Varun Glass DO Work Phone: [phone])62229 [address]08-04-2025 10:29-0400 Body ivltcr95.18 kgDahali Lunsfordrodrigo DO Work Phone: [phone])244[address]08-04-2025 10:29-0400 Diastolic blood xpnteset73 mm[Hg]Varun Glass DO Work Phone: 1(301)[address]08-04-2025 10:29-0400 Heart rate67 /minDavichris Glass DO Work Phone: [phone] [place], [place] [address]2008-04-2025 10:29-0400 SaO2% (BldA) [Mass fraction]99 %Varun Glass DO Work Phone: [phone]08-04-2025 10:29-0400 Systolic blood sjzloizq541 mm[Hg]Varun Glass DO Work Phone: [phone] [address]04-16-2025 09:47-0400 Body iihaxr213.02 cmDahali Glass DO Work Phone: [phone] [place], [place] 6472004-16-2025 09:47-0400 Body mass index (BMI) [Ratio]34 kg/a9Hequwhali Glass DO Work Phone: [phone])[address]04-16-2025 09:47-0400 Body qcysbxdjiek00.9 [degF]Varun Glass DO Work Phone: 1(250)[address] [place], [place] 9258304-16-2025 09:47-0400 Body dejrsn10.08 kgDahali Lunsfordrodrigo DO Work Phone: [phone])[address] [place], [place] 9258304-16-2025 09:47-0400 Diastolic blood aobadpiy01 mm[Hg]Varun Glass DO Work Phone: 1(410)[address] [place], [place] 9258304-16-2025 09:47-0400 Heart rate76 /minDmonique Glass DO Work Phone: 1(567)[address] [place], [place] 9258304-16-2025 09:47-0400 SaO2% (BldA) [Mass fraction]98 %Varun Glass DO Work Phone: 1(625)[address] [place], [place] 9258304-16-2025 09:47-0400 Systolic blood joodsduq410 mm[Hg]Varun Glass DO Work Phone: 1(762)[address] [place], [place] 9258303-10-2025 16:15-0400 Body wpbujy06.99 kgDaiainchris Lunsfordrodrigo DO Work Phone: 1(542)[address] [place], [place] 9258303-10-2025 16:15-0400 Diastolic blood oaonbfng58 mm[Hg]Varun Glass DO Work Phone: 1(082)[address] [place], [place] 9258303-10-2025 16:15-0400 Heart rate78 /Shelton Glass DO Work Phone: [phone])54529 [address]03-10-2025 16:15-0400 SaO2% (BldA) [Mass fraction]99 %Varun Glass DO Work Phone: 1(261)[address] [place], [place] 9258303-10-2025 16:15-0400 Systolic blood aquvfcmq732 mm[Hg]Varun Glass DO Work Phone: 1(888)[address] [place], [place] 9258302-10-2025 16:10-0500 Body .02 cmDahali Glass DO Work Phone: 1(057)[address] [place], [place] 9258302-10-2025 16:10-0500 Body mass index (BMI) [Ratio]35 kg/n4Qompg Girrodrigo DO Work Phone: 1(699)[address] [place], [place] 9258302-10-2025 16:10-0500 Body hcqekdrcixy40.3 [degF]Varun Glass DO Work Phone: 1(217)[address] [place], [place] 9258302-10-2025 16:10-0500 Body fgehfz50.81 kgDaiainchris Lunsfordrodrigo DO Work Phone: 1(701)[address] [place], [place] 9258302-10-2025 16:10-0500 Diastolic blood mm[Hg]Varun Glass DO Work Phone: 1(429)[address] [place], [place] 9258302-10-2025 16:10-0500 Heart rate81 /minDavichris Glass DO Work Phone: 1(372)[address] [place], [place] 9258302-10-2025 16:10-0500 SaO2% (BldA) [Mass fraction]99 %Varun Glass DO Work Phone: 1(479)[address] [place], [place] 9258302-10-2025 16:10-0500 Systolic blood aosyvdds382 mm[Hg]Varun Glass DO Work Phone: [phone] [place], [place] 9258301-03-2025 09:52-0500 Body jspcaz32.71 kgDaiainchris Lunsfordrodrigo DO Work Phone: 1([phone] [place], [place] 9258312-06-2024 10:06-0500 Body mrgdco509.02 cmDaiainchris Lunsfordrodrigo DO Work Phone: [address] [place], [place] 9258312-06-2024 10:06-0500 Body mass index (BMI) [Ratio]35.9 kg/e2Fxmcz Girrodrigo DO Work Phone: 1([phone] [place], [place] 9258312-06-2024 10:06-0500 Body paryheancni33.2 [degF]Varun Glass DO Work Phone: 1(075)[address] [place], [place] 9258312-06-2024 10:06-0500 Body eaioaa16.07 kgDahali Glass DO Work Phone: [facility]12-06-2024 10:06-0500 Diastolic blood jwgvofcu30 mm[Hg]Varun Glass DO Work Phone: [facility]12-06-2024 10:06-0500 Heart rate76 /Shelton Glass DO Work Phone: [phone]12-06-2024 10:06-0500 SaO2% (BldA) [Mass fraction]99 %Varun Glass DO Work Phone: [phone]12-06-2024 10:06-0500 Systolic blood lvnckadl118 mm[Hg]Varun Glass DO Work Phone: [phone]11-25-2024 14:42-0500 Diastolic blood gudlppvq86 mm[Hg]Varun Glass DO Work Phone: [phone]11-25-2024 14:42-0500 Heart rate86 /Shelton Glass DO Work Phone: [phone]11-25-2024 14:42-0500 Systolic blood lviqqeru978 mm[Hg]Varun Glass DO Work Phone: [phone]11-11-2024 16:15-0500 Body mass index (BMI) [Ratio]37.2 kg/w0LirvubkpuHolzer Hospital 08-08-2024 16:15-0500Body zcvlqzoymkc28.2 [degF][facility]11-11-2024 16:15-0500Body uslkzm74.25 kg[facility] 08-08-2024 16:15-0500Diastolic blood jmxcxfon46 mm[Hg][facility]11-11-2024 16:15-0500Heart rate70 /minHol[facility] 08-08-2024 16:15-8486SfY6% (BldA) [Mass fraction]99 %[facility]11-11-2024 16:15-0500Systolic blood yqhosguj544 mm[Hg][facility]11-11-2024 10:17-0500Body lzbjjy089.02 cmHol[facility]10-11-2024 12:29-0400Body mass index (BMI) [Ratio]37.7 kg/m2 [facility]10-11-2024 12:29-0400Body tepsappvjpf70.8 [degF][facility]10-11-2024 12:29-0400Diastolic blood mm[Hg][facility]10-11-2024 12:29-0400Heart rate71 /minHol[facility] Hospital10-11-2024 12:29-5383VcB9% (BldA) [Mass fraction]98 %[facility]10-11-2024 12:29-0400 Systolic blood xsevxupl216 mm[Hg][facility]10-11-2024 09:38-0400Body nrihgy938.02 cmHol[facility]10-11-2024 09:38-0400Body xnqqki61.61 kgHol[facility]10-04-2024 08:54-0400Body mass index (BMI) [Ratio]36.41 kg/o1Wshljps Visci DO Work Phone: [facility]jgdpnyqdx42-[facility]-6795 08:54-0400Body fivzsu94.21 kgRichard Visci DO Work Phone: [facility] CenterVrpnndxsjm69-18-8197 08:54-0400Diastolic blood upqzihnp07 mm[Hg]Yesi Visci DO Work Phone: [facility] CenterBpeyzkjlxh59-41-4421 08:54-0400Systolic blood sfyavuvj828 mm[Hg]Yesi Visci DO Work Phone: [facility] CenterEsaanfewtt46-39-1775 17:35-0400Body rqffmi874.02 cmDO Varun Glass Work Phone: [facility]05-06-2024 17:35-0400 Body mass index (BMI) [Ratio]35.9 kg/m2DO Varun Glass Work Phone: [facility]05-06-2024 17:35-0400 Body htphimmkwck68.2 [degF]DO Varun Isaturodrigo Work Phone: [phone]05-06-2024 17:35-0400 Body pamuuw01.07 kgDO Varun Isaturodrigo Work Phone: [phone]05-06-2024 17:35-0400 Diastolic blood cqxmifjd71 mm[Hg]DO Varun Lunsfordrodrigo Work Phone: [phone])[address]05-06-2024 17:35-0400 SaO2% (BldA) [Mass fraction]99 %DO Varun Glass Work Phone: [phone])485[facility]04[facility]05-06-2024 17:35-0400 Systolic blood lzowyuec963 mm[Hg]DO Varun Isaturodrigo Work Phone: [phone]89[facility]01-08-2024 17:20-0500 Body outbdm037.29 cmVarun Glass Other [address] [place], [place] 6472001-08-2024 17:20-0500 Body mass index (BMI) [Ratio]34.87 kg/g0YlejhVarun Glass Other [facility] Other 601491-86-9886 17:20-0500Body byaagsvshul66.7 [degF]Varun Glass Other [facility] Other 987156-62-3512 17:20-0500Body xajaqq29.72 kgDaiainchris Glass Other [facility] Other 190049-69-0852 17:20-0500Body sjboih72.71 kgDO Varun Glass Work Phone: [phone]01-08-2024 17:20-0500 Diastolic blood mznipixh95 mm[Hg]Varun Glass Other [facility]01-08-2024 17:20-0500 Respiratory rate16 /Shelton Galss Other [facility] Other 01-08-2024 17:20-9159OzW5% (BldA) [Mass fraction]99 % Varun Glass Other [facility] Other 01-08-2024 17:20-0500Systolic blood mm[Hg] Varun Glass Other [facility]12-08-2023 10:50-0500 Body ddcnfy741.29 cmDahali Glass Other [facility]12-08-2023 10:50-0500 Body mass index (BMI) [Ratio]35.13 kg/d4CqaiiVarun Glass Other [facility] Other 12-08-2023 10:50-0500Body pzwrokgqsly03.2 [degF]Varun Glass Other [facility] Other 12-08-2023 10:50-0500Body pdsres92.4 kgDahali Glass Other [facility] Other 12-08-2023 10:50-0500Body iamncf69.39 kgDO Varun Glass Work Phone: [facility]12-08-2023 10:50-0500 Diastolic blood nhyefbmv91 mm[Hg]Varun Glass Other [facility]12-08-2023 10:50-0500 Respiratory rate18 /Shelton Glass Other [facility] Other 12-08-2023 10:50-4677YmB5% (BldA) [Mass fraction]98 % Varun Glass Other [facility] Other 12-08-2023 10:50-0500Systolic blood fvtjvrfe576 mm[Hg] Varun Glass Other [facility]11-10-2023 11:10-0500 Body .29 cmDahali Glass Other [facility] Other 11-10-2023 11:10-0500Body mass index (BMI) [Ratio] 34.52 kg/s7Itwfmhali Glass Other [facility] Other 11-10-2023 11:10-0500Body tihhjoyibxa72.9 [degF]Varun Glass Other [facility] Other 11-10-2023 11:10-0500Body .81 kgDahali Glass Other [facility] Other 11-10-2023 11:10-0500Diastolic blood ypoydmrr79 mm[Hg] Varun Glass Other [facility] Other 11-10-2023 11:10-0500Respiratory rate18 /minDmonique Glass Other [facility] Other 11-10-2023 11:10-4230BuR4% (BldA) [Mass fraction]98 % Varun Glass Other [facility] Other 11-10-2023 11:10-0500Systolic blood muczorni166 mm[Hg] Varun Glass Other [facility] Other 10-13-2023 10:30-0400Body apcsna862.29 cmVarun Glass Other [facility] Other 10-13-2023 10:30-0400Body mass index (BMI) [Ratio] 33.82 kg/f5Ojdlshali Glass Other [facility] Other 10-13-2023 10:30-0400Body wohkuaowdvy14 [degF]Varun Glass Other [facility] Other 10-13-2023 10:30-0400Body zszong98 kgDahali Glass Other [facility] Other 10-13-2023 10:30-0400Diastolic blood nuejlkpp32 mm[Hg] Varun Glass Other [facility] Other 10-13-2023 10:30-0400Respiratory rate18 /minDmonique Glass Other [facility] Other 10-13-2023 10:30-3600VlU1% (BldA) [Mass fraction]97 % Varun Glass Other [facility] Other 10-13-2023 10:30-0400Systolic blood arzefdni384 mm[Hg] Varun Glass Other [facility] Other 08-04-2023 10:10-0400Body dyuyop406.29 cmDahali Glass Other [facility] Other 08-04-2023 10:10-0400Body mass index (BMI) [Ratio] 34.87 kg/f7TdhheVarun Glass Other [facility] Other 08-04-2023 10:10-0400Body mufpbwoyowm21.4 [degF]Varun Glass Other [facility] Other 08-04-2023 10:10-0400Body keqazk48.72 kgDahali Glass Other [facility] Other 343583-97-0882 10:10-0400Diastolic blood ndpnkrni10 mm[Hg] Varun Glass Other [facility] Other 215421-71-4939 10:10-0400Respiratory rate18 /minDavichris Glass Other [facility] Other 08-04-2023 10:10-4894GxS4% (BldA) [Mass fraction]98 % Varun Glass Other [facility] Other 08-04-2023 10:10-0400Systolic blood xlfeaatk651 mm[Hg] Varun Glass Other [facility] Other 218036-24-8728 14:40-0400Body yavhib013.29 cmDahali Glass Other [facility] Other 064006-99-1591 14:40-0400Body mass index (BMI) [Ratio]34 kg/l5DdkhoVarun Glass Other [facility] Other 422054-67-2882 14:40-0400Body fotijobsksj56.8 [degF]Varun Glass Other [facility] Other 05-02-2023 14:40-0400Body .45 kgDahali Glass Other [facility] Other 05-02-2023 14:40-0400Diastolic blood anrqtlui53 mm[Hg] Varun Glass Other [facility] Other 05-02-2023 14:40-0400Respiratory rate18 /Shelton Glass Other [facility] Other 05-02-2023 14:40-2197FpU5% (BldA) [Mass fraction]99 % Varun Glass Other [facility] Other 05-02-2023 14:40-0400Systolic blood mjjryzuu161 mm[Hg] Varun Glass Other [facility] Other 04-03-2023 18:00-0400Body .29 cmDahali Glass Other [facility] Other 04-03-2023 18:00-0400Body mass index (BMI) [Ratio] 35.04 kg/q9ArpjpVarun Glass Other [facility] Other 04-03-2023 18:00-0400Body bgpbkwebexn44.9 [degF]Varun Glass Other [facility] Other 04-03-2023 18:00-0400Body glzzel68.17 kgDahali Glass Other [facility] Other 04-03-2023 18:00-0400Diastolic blood mm[Hg] Varun Glass Other [facility] Other 04-03-2023 18:00-0400Respiratory rate18 /Shelton Glass Other [facility] Other 04-03-2023 18:00-6918QmV4% (BldA) [Mass fraction]98 % Varun Glass Other [facility] [employer] Other 04-03-2023 18:00-0400Systolic blood gefrfcmo939 mm[Hg] Varun Glass Other [facility] Other 02-20-2023 15:40-0500Body .29 cmDeSlyce Blades Other [facility] Other 02-20-2023 15:40-0500Body mass index (BMI) [Ratio] 34.87 kg/d8Xwhqrae Blades Other [facility] Other 02-20-2023 15:40-0500Body .72 kgDeKBJ Capitals Other [facility] Other 02-20-2023 15:40-0500Respiratory rate18 /minDeboravSocial Blades Other [facility] Other 12-21-2022 09:36-0500Diastolic blood mm[Hg] DO Varun Glass Work Phone: [facility]12-21-2022 09:36-0500 Heart rate58 /DanyaO Varun Glass Work Phone: [facility]12-21-2022 09:36-0500 Respiratory rate16 /DanyaO Varun Glass Work Phone: [facility]12-21-2022 09:36-0500 SaO2% (BldA) [Mass fraction]100 %DO Varun Glass Work Phone: [facility]12-21-2022 09:36-0500 Systolic blood rzalcysh525 mm[Hg]DO Varun Glass Work Phone: [facility]12-21-2022 07:59-0500 Body crbvzi854.56 cmDO Varun Glass Work Phone: [facility]12-21-2022 07:59-0500 Body .45 kgDO Varun Quan Work Phone: [facility]12-15-2022 13:32-0500 Diastolic blood lfelrxwp94 mm[Hg]Michelle Zumbar [facility]12-15-2022 13:32-0500Heart rate71 /minZachary Zumbar [facility]12-15-2022 13:32-0500Mean blood gtaputjh258 mm[Hg]Michelle Zumbar [facility]12-15-2022 13:32-0500 Respiratory rate12 /minZachary Zumbar [facility]12-15-2022 13:32-0500 Systolic blood bojhkqkf436 mm[Hg]Michelle Zumbar [facility]11-07-2022 16:20-0500Body bayivf857.29 cmDahali Glass Other [facility] [employer] Other 11-07-2022 16:20-0500Body mass index (BMI) [Ratio] 34.17 kg/m2Kydeihali Glass Other [facility] Other 11-07-2022 16:20-0500Body twqlabcfqha49.8 [degF]Varun Glass Other [facility] Other 11-07-2022 16:20-0500Body urjtcu76.91 kgDahali Glass Other [facility] Other 11-07-2022 16:20-0500Diastolic blood ovcexxry72 mm[Hg] Varun Glass Other [facility] Other 11-07-2022 16:20-0500Respiratory rate18 /minDavichris Glass Other [facility] Other 11-07-2022 16:20-7738VcK5% (BldA) [Mass fraction]99 % Varun Glass Other [facility] Other 11-07-2022 16:20-0500Systolic blood swdnwber959 mm[Hg] Varun Glass Other [facility] Other 10-05-2022 16:15-0400Body apgzrs656.29 cmCameron Disalvatorey Other [facility] Other 10-05-2022 16:15-0400Body mass index (BMI) [Ratio]33.3 kg/m3Lqimuxk Ditty Other [facility] Other 10-05-2022 16:15-0400Body .64 kgCameron Ditty Other [facility] Other 10-05-2022 16:15-0400Diastolic blood gclrcomx69 mm[Hg] Jose Martin Ditty Other [facility] Other 10-05-2022 16:15-0400Systolic blood vgaldfkq435 mm[Hg] Jose Martin Ditty Other [facility] Other 05-20-2022 09:10-0400Body jkupwk172.29 cmDahali Glass Other [facility] Other 05-20-2022 09:10-0400Body mass index (BMI) [Ratio] 33.82 kg/s1BnlptVarun Glass Other [facility] Other 05-20-2022 09:10-0400Body hsmlnbtklba72.3 [degF]Varun Glass Other [facility] Other 05-20-2022 09:10-0400Body cmzhuc24 kgDahali Glass Other [facility] Other 05-20-2022 09:10-0400Diastolic blood zadiztyq10 mm[Hg] Varun Glass Other [facility] Other 335368-27-5754 09:10-0400Respiratory rate18 /minDavichris Glass Other [facility] Other 05-20-2022 09:10-7956HfC1% (BldA) [Mass fraction]98 % Varun Glass Other [facility] Other 05-20-2022 09:10-0400Systolic blood fptiorfd826 mm[Hg] Varun Glass Other [facility] Other 03-23-2022 16:00-0400Body jojfny666.29 cmEctor Moore Other [facility] Other 03-23-2022 16:00-0400Body mass index (BMI) [Ratio] 35.18 kg/i9LizcsmEctor Moore Other [facility] Other 03-23-2022 16:00-0400Body .54 kgEctor Moore Other [facility] Other 03-23-2022 16:00-0400Diastolic blood efgypxch02 mm[Hg] Ector Christopherdiff Other [facility] Other 03-23-2022 16:00-0400Respiratory rate16 /Norma Christopherdiff Other [facility] [employer] Other 03-23-2022 16:00-5762MeO7% (BldA) [Mass fraction]99 % Ector Christopherdiff Other [facility] [employer] Other 03-23-2022 16:00-0400Systolic blood ekssrmhq407 mm[Hg] Ector Christopherdiff Other [facility] [employer] Other 03-02-2022 10:11-0500Blood Pressure LocationKathy Lue [facility] [employer] 03-02-2022 10:11-0500Diastolic blood zkanfmay72 mm[Hg] Rhonda Lue [facility] 03-02-2022 10:11-0500Heart rate68 /minKathy Lue [facility] 03-02-2022 10:11-0500Respiratory rate16 /minKathy Lue [facility] 03-02-2022 10:11-0500Systolic blood vvvyuuyp016 mm[Hg] Rhonda Lue [facility] 01-28-2022 14:10-0500Body zolnte241.29 cmDahali Glass Other [employer] Other 01-28-2022 14:10-0500Body mass index (BMI) [Ratio] 32.95 kg/q6DggluVarun Glass Other [facility] Other 01-28-2022 14:10-0500Body ixmrjoepzzi42.6 [degF]Varun Glass Other [facility] Other 01-28-2022 14:10-0500Body ttfhaf80.73 kgDahali Glass Other [facility] Other 01-28-2022 14:10-0500Diastolic blood mm[Hg] Varun Glass Other [facility] Other 01-28-2022 14:10-0500Respiratory rate16 /Shelton Glass Other [facility] Other 01-28-2022 14:10-5301UsX0% (BldA) [Mass fraction]98 % Varun Glass Other [facility] Other 01-28-2022 14:10-0500Systolic blood reibbdin739 mm[Hg] Varun Glass Other [facility] Other 11-29-2021 15:20-0500Body ybvegz752.29 cmVarun Glass Other [facility] Other 10-29-2021 14:10-0400Body ptmkve069.29 cmDahali Glass Other [facility] Other 10-29-2021 14:10-0400Body mass index (BMI) [Ratio] 32.86 kg/i1JnhvkVarun Glass Other [facility] Other 10-29-2021 14:10-0400Body .1 [degF]Varun Glass Other [facility] Other 10-29-2021 14:10-0400Body .5 kgDahali Glass Other [facility] Other 10-29-2021 14:10-0400Diastolic blood vsgesntu95 mm[Hg] Varun Glass Other [facility] Other 10-29-2021 14:10-0400Respiratory rate18 /minDmonique Glass Other [facility] Other 10-29-2021 14:10-9399VrQ7% (BldA) [Mass fraction]99 % Varun Glass Other [facility] Other 10-29-2021 14:10-0400Systolic blood ogieajal193 mm[Hg] Varun Glass Other [facility] Other Encounters Encounter DateEncounter TypeCare ProviderFacilityStart: 08-04-2025 End: 17-67-4299cuaqxyijumNcynl Girvin DO Work Phone: [facility] [place]Start: 08-04-2025 End: 41-32-7920Qwacsoc encounter procedureDahali Glass DO-[facility] Work Phone: Start: 07-07-2025 End: 41-43-2918Vmpqdmd encounter statusRichard Anastacia Visci DO Work Phone: [facility] Work Phone: start: 07-07-2025 End: 79-45-6130Ywpwcdof preventive med est patient 40-64yrsRichtamiko A Visci DO Work Phone: [facility] OBGYNComment on above:Encounter for gynecological examination with abnormal finding (Primary Dx); Encounter for screening mammogram for malignant neoplasm of breast; Intrauterine device surveillance; Irregular intermenstrual bleedingStart: 07-07-2025 End: 06-56-9888wjxylhyhavHYVRNYQ A VISCINot AvailableStart: 06-12-2025 End: 60-39-8406vztxstnaplFioxs Girvin DO Work Phone: [facility] Work Phone: Start: 06-12-2025 End: 14-21-9946Drwxoqa encounter procedureDavichris Glass DO-[facility] Medicine [employer] Work Phone: Start: 05-01-2025 End: 71-53-5139fiyowijdloSmzan Isatuvin DO Work Phone: [facility] Work Phone: Start: 05-01-2025 End: 29-15-4871Werhsik encounter procedureDavid Eben Glass DO-[facility] [employer] Work Phone: Start: 03-01-2025 End: 91-63-0830Zavgljz encounter procedureDavid Isatuvin DO Work Phone: [facility] Work Phone: Start: 03-01-2025 End: 21-60-2045qioheogxmmHtjmy QuanFacility:[facility] Start: 01-11-2025 End: 83-37-7563Uvzrnwe encounter procedureDavid Girvin DO Work Phone: [facility] Family Medicine [employer] Work Phone: Start: 12-05-2024 End: 41-96-6750Ctmyoyx encounter procedureDavid Girvin DO Work Phone: [facility] Work Phone: Start: 11-18-2024 End: 02-00-1969Acuombo encounter procedureDavid Girvin DO Work Phone: [facility] Work Phone: Start: 11-18-2024 End: 99-38-6382rlfskahozqNsygt Girvin DO Work Phone: [facility] Work Phone: Start: 11-16-2024 End: 46-91-5447sohwjsifbnIDUMY Eben Colin AvailableStart: 11-07-2024 End: 99-10-2666jpgfcmdtihVwkye Girvin DO Work Phone: [facility] Work Phone: Start: 11-07-2024 End: 63-50-9213Omsfvat encounter procedureDavid Girvin DO Work Phone: [facility] Work Phone: Start: 09-30-2024 End: 53-76-0421kzbpswpysoKrcbb Girvin DO Work Phone: [facility] Work Phone: Start: 09-30-2024 End: 05-51-7331Ewysugk encounter procedureDavid Girvin DO Work Phone: [facility] Work Phone: Start: 09-23-2024 End: 76-70-7116quckcdizwzGyudl IsatuvinFacilkettering health behavioral [facility] Start: 09-23-2024 End: 41-57-0064Zuoneofoex RecurringDavid Girvin DO Work Phone: [facility] [place] Work Phone: start: 09-02-2024 End: 23-22-5185Wujnvlj encounter procedureDavid Girvin DO Work Phone: [facility] Family Medicine [employer] Work Phone: Start: 08-16-2024 End: 15-04-2296Ymupvptq ReferredDavid Girvin DO Work Phone: [facility] Work Phone: Start: 08-16-2024 End: 36-07-6843ruueeyjqgwSxojk Girvin DO Work Phone: [facility] Work Phone: Start: 82-81-4463Uvmtkmbcrj RecurringDavid Girvin DO Work Phone: [facility] [place] Work Phone: start: 08-08-2024 End: 17-78-2868ewbpkqrpbeEkeunpfwcPrem[facility] Work Phone: Start: 08-08-2024 End: 04-00-7146Umpnrka encounter procedureE[facility] Work Phone: Start: 07-08-2024 End: 58-64-1506qtwkrdnrgaExwdomvcxPrem[facility] Health [facility] Work Phone: Start: 07-08-2024 End: 33-41-3007Wkgaeie encounter procedureFirskipperss Physician [facility] Work Phone: Start: 07-01-2024 End: 96-40-1812Mlblizc encounter statusRichtamiko Galaviz Visci DO Work Phone: [facility] Work Phone: start: 07-01-2024 End: 61-78-0641Qtxsfgym preventive med est patient 40-64yrsRichtamiko Clinton DO Work Phone: [facility] OBComment on above:Screening mammogram for breast cancer (Primary Dx); Encounter for gynecological examination with abnormal finding; Encounter for screening mammogram for malignant neoplasm of breast; Intrauterine device surveillance; Fatigue, unspecified type; Weight gain; PerimenopauseStart: 02-01-2024 End: 85-65-5747jffqdilkmyWV Varun Glass Work Phone: [facility] Work Phone: Start: 02-01-2024 End: 46-42-3860Rwjsupk encounter procedureDO Varun Glass Work Phone: [facility] Family [facility] Work Phone: Start: 66-63-7764Hff-patient / Non-visitDO Varun Glass Work Phone: [facility] [employer] Work Phone: Start: 01-27-2024 End: 61-15-5884Bqiwqsm encounter procedureDO Varun Glass Work Phone: [facility] Work Phone: Start: 11-06-2023 End: 04-56-9308drhltkxbrtML David Girvin Work Phone: [facility] Work Phone: Start: 11-06-2023 End: 76-67-2560Wqwcigk encounter procedureDO Varun Glass Work Phone: [facility] Work Phone: Start: 10-05-2023 End: 80-98-1429iiuldwtxhvCfant Girvin Other [facility] [employer] Other Start: 45-72-4990Fuwphn outpatient visit 15 minutes Varun GlassFPG [facility] [place]Start: 10-05-2023 End: 88-11-8632Upddyur encounter procedureDO Varun Glsas Work Phone: [facility] Work Phone: Start: 09-11-2023 End: 30-56-6921oyupyasaltARRPHYI JANIKFacility:[facility] Daytontart: 09-04-2023 End: 84-37-7568pgxibefsdnQbjwv Girvin Other [employer] Other Start: 87-35-6312Vuxyez outpatient visit 15 minutes Varun [facility] [place]Start: 09-04-2023 End: 48-23-9813Msbaalj encounter procedureDO Varun Glass Work Phone: [facility] Work Phone: Start: 08-07-2023 End: 48-59-5459nswensnqcrNzinw Girvin Other [employer] Other Start: 02-92-7275Wjjpfu outpatient visit 25 minutes Varun [facility] [place]Start: 07-10-2023 End: 64-88-4187jziwjwutilQwslx Girvin Other [employer] Other Start: 92-52-7543Kjlyfr outpatient visit 25 minutes Varun [facility] [place]Start: 04-89-0817Ozonxilct encounter Varun [facility] [place]Start: 07-01-2023 End: 95-15-2405totfbpidrdWwslr Girvin Other [employer] Other start: 47-73-9169Oefpeiuer encounterDahali [facility] [place]vueStart: 06-19-2023 End: 32-71-9222kvfviftancBgagu Girvin Other [facility] [employer] Other start: 38-34-6908Tfarpksyc encounterDahali [facility] [place]vueStart: 06-16-2023 End: 40-40-9480apjatzppekPtvlx [facility] Other [employer] Other start: 35-46-2473Trquumvfi encounterDavichris GlassJONG [facility] [place]vueStart: 06-03-2023 End: 02-03-9941muclwhbloxUwklu Girvin Other [employer] Other start: 10-76-3613Bznagxpad encounterDavichris Reed Family Medicine BellevueStart: 05-01-2023 End: 76-78-2000mbnkczrdanZmpsv Girvin Other [facility] [employer] Other Start: 07-42-7814Fexfgv outpatient visit 25 minutes [facility] [place]vueStart: 14-87-0440Mpxdfbsti encounter [facility] [place]vueStart: 03-23-2023 End: 62-65-2080yxeruyavnpAqlvw Girvin Other [employer] Other Start: 60-31-2460Xkwcfjuqf encounterDavichris Reed Family Medicine BellevueStart: 02-03-2023 End: 18-84-2644luamuooknnSndxp Girvin Other [employer] Other Start: 41-54-2695Wdqpnorfc encounterDahali Reed Family Medicine BellevueStart: 01-27-2023 End: 10-50-1738Oeoowkq encounter procedureDO Varun Glass Work Phone: [facility] Work Phone: Start: 01-27-2023 End: 52-84-0199mkdmgjcltaSU David Girvin Work Phone: [facility] Work Phone: Start: 10-39-0447Qyrnbp outpatient visit 25 minutes [facility] [place]vueStart: 12-28-8451Fumlhmbvc encounter [facility] [place]vueStart: 12-29-2022 End: 75-45-2562dommjkjxxzQrwzb Girvin Other [employer] Other Start: 52-59-9405Jlscfp outpatient visit 15 minutes [facility] [place]vueStart: 11-27-2022 End: 34-21-2705hpvqeutxytCvltv Girvin Other [employer] Other Start: 04-99-6333Tnxvqbsjd encounterDavichris Reed Family Medicine BellevueStart: 11-19-2022 End: 41-32-7598tcinrtsfdrAsnybcv Blades Other [facility] Other start: 67-37-6971Bfmoywxbm encounterLisa DavissJONG Referral CoordinatorStart: 11-17-2022 End: 52-52-2065uaayeroyjgQdzzjxj Blades Other [employer] Other start: 93-40-8468Yevebr outpatient new 30 minutes Lisa Cameron [facility] NeurosurgeryStart: 11-03-2022 End: 55-20-3780eqrlyrvmpxDoxni Girvin Other [employer] Other Start: 42-15-1536Gkfegodby encounterDahali Reed Family Medicine BellevueStart: 10-31-2022 End: 46-05-5274Syzdmoq encounter procedureDO Varun Glass Work Phone: [facility] Work Phone: Start: 10-28-2022 End: 77-87-9432msfwtskdfkWI David Girvin Work Phone: [facility] Work Phone: Start: 10-28-2022 End: 14-27-7727Awrlqtk encounter procedureDO Varun Glass Work Phone: [facility]Lab Tell Work Phone: Start: 09-17-2022 End: 50-96-9624Pjbxdrfzf to same day surgery centerDO Varun Glass Work Phone: [facility]-Digestive HealthStart: 09-17-2022 End: 42-07-2068veqwcoqrijOX David Girvin Work Phone: [facility] Work Phone: Start: 09-11-2022 End: 49-32-7162gnbuxacbtpMK Zachary ZumbarFacility:FTMCStart: 09-11-2022 End: 44-07-7980cbrihanonzKhzbi David C GirvinFacility:FTMCStart: 09-11-2022 End: 68-76-0743Ukmbhfv encounter procedureZachary Zumbar [facility] Start: 09-11-2022 End: 95-69-0962Euri ManagementZachary Zumbar [facility] Start: 08-06-2022 End: 53-94-2865xfrbgzjnakBgsyh Girvin Other [employer] Other Start: 33-63-4874Vnxsqjmoi encounterVarun Reed Referral CoordinatorStart: 08-04-2022 End: 00-51-3143mcvnidwdtfPcdpm Girvin Other [employer] Other Start: 53-27-3538Sdvoox outpatient visit 15 minutes [facility] [place]Start: 36-04-6385Jrqfejfvo encounter [facility] [place]vueStart: 07-22-2022 End: 75-90-1700usvibrrggmNK Varun Glass Work Phone: [facility] Work Phone: Start: 07-22-2022 End: 48-56-2628Nbqsnof encounter procedureDO Varun Glass Work Phone: [facility]MRI Main CampusStart: 07-02-2022 End: 42-96-4877uwvemoulsnFgmhnkz Ditty Other [employer] Other Start: 96-94-2167MYTH visit new patientCamflako Herman [facility] GastroenterologyStart: 03-05-2022 End: 87-73-7878qkckjrohyfQqufa Girvin Other [employer] Other Start: 42-39-6021Qxovblrbj encounterDahali Reed Family Medicine BellevueStart: 02-28-2022 End: 52-79-2635tkvgjbchviJtdofc Cundiff Other [employer] Other Start: 56-30-3285Hiegtpvbz encounterDavichris Reed Family Medicine BellevueStart: 02-27-2022 End: 15-80-8211zebwyjhhdbVzhet Girvin Other [employer] Other Start: 73-64-5592Qnkwxyerf encounterDavichris Reed Family Medicine BellevueStart: 02-19-2022 End: 26-48-9912pnrijniwbgWeczwt Cund[employer] Other [employer] Other Start: 44-09-8987Yuyjyqkrb encounterEctor Oscar [facility] Coordinated Care ClinicStart: 02-18-2022 End: 85-14-7648skqdxzdzznWfgvzv Cundiff Other [employer] Other Start: 76-02-2196Uofkolevo encounterEctor Oscar [facility] Coordinated Care ClinicStart: 02-17-2022 End: 56-37-5763nhzzvmfcrwXlvde Girvin Other [employer] Other start: 79-30-3410Brzpijbcj encounterVarun Reed Family [facility] Hospitaltart: 02-14-2022 End: 92-40-6141erysffsdpcCuvqm Girvin Other [employer] Other Start: 54-11-7052Gvgvdz outpatient visit 25 minutes [facility]un [facility] Hospitaltart: 17-84-6753aikmogqpggBvnhu M. Lue Facility:[facility] CenteruskyStart: 12-23-2021 End: 81-47-8044uggikhqrfxZhcgdh Cundiff Other [employer] Other Start: 34-73-2038Kxxpqwyod encounterEctor Oscar [facility] Coord[facility] Care ClinicStart: 12-18-2021 End: 15-13-4106ukiwrtlurgAeyzxt Cundiff Other [employer] Other Start: 36-42-7003Vurshrczi therapyEctor Fitzgeraldff [facility] Coordinated Care ClinicStart: 11-27-2021 End: 40-00-2430djnpvnevvjBfogr M. LueFacility: BellevueStart: 11-27-2021 End: 28-60-3056Ajesdyc encounter procedureRhonda Garcia [facility] [employer] start: 64-73-8539fducdoaqjwHjxed LueFacility:EU BellevueStart: 10-25-2021 End: 99-51-7862emvcgefiqgCuitq Girvin Other [employer] Other Start: 57-76-2020Xeknnz outpatient visit 25 minutes [facility] [place]vueStart: 09-18-2021 End: 99-96-0766xmtccguovyHsgls Girvin Other [employer] Other Start: 13-22-0231Axloctydz encounterDavid Brianna [facility] WatertownevueStart: 09-10-2021 End: 31-28-2365inrgctgcfnTguas Girvin Other [employer] Other Start: 59-63-9702Yaustkijz encounterDavid Brianna [facility] Medicine evueStart: 08-26-2021 End: 08-13-7622aoerlfktjnVtsjg Girvin Other [employer] Other Start: 68-29-6610Umnwsc outpatient visit 15 minutes [facility] [place]vueStart: 08-20-2021 End: 46-80-9914cikjyknzbpYfgnh Girvin Other [employer] Other Start: 31-20-0441Pngtfxuic encounterDavichris Reed Family Medicine BellevueStart: 10-67-3394Aydzjvpdb encounterDavichris Reed [facility] BellevueStart: 08-13-2021 End: 57-35-7264qjfpqhrxtdMO VARUN Reddy:K2Ddrfl: 08-13-2021 End: 85-63-1038iiiihudzjbZT VARUN GLASSFacility:O2Rvlbf: 08-05-2021 End: 01-33-4093pvlmsibnrrZapr Fitt Other [facility] [employer] Other Start: 38-63-7166Wtyywpzjv encounterDawn FittFskagit regional health Coordinated Care ClinicStart: 40-98-2936Fqxkfywjk encounterDavid Quan [facility] Coordinated Care ClinicStart: 07-26-2021 End: 13-02-4094xqkhrzogwlFooeh Girvin Other [facility] [employer] Other Start: 99-01-9011Lwvtgz outpatient visit 15 minutes Varun [facility] Procedures DateProcedureProcedure DetailPerforming ClinicianStart: 94-39-8962Tdn hormone binding globulin measurementDavichris Glass DO Work Phone: Comment on above:Performed at: - [address] Director: Polo Martinez PhD, Phone: [phone]: 38-96-4502Nnoosrbcf mammography of bilateral breastsDavichris Glass DO Work Phone: Start: 57-32-7617Npagk cultureDO Varun Glass Work Phone: Start: 99-60-4091Egqsyryjc mammography of bilateral breastsDO Varun Glass Work Phone: Start: 70-47-0404Efihh chest X-rayDO Varun Lunsfordrodrigo Work Phone: Start: 30-70-0642Wxoumiwwj mammography of bilateral breastsDO Varun Glass Work Phone: Start: 06-54-8985CzimkxuhhpkMY Varun Glass Work Phone: Start: 24-61-2477QO lumbar spine wo conDO Varun Glass Work Phone: Cesarean Ardy Garcia Plan of Treatment DateCare ActivityDetailAuthorStart: 07-13-2026 End: 17-21-2084Fsrtfuj encounter cbudfxgrt40/16/2026 10:15 AM EDT Office Visit [facility] [address] [place] [address] Yesi Clinton, DO [address] [place] [address] [facility]: 11-18-2025 End: 06-45-8980WTI Breast - bilateral screeningBilateral screening mammogram with tomosynthesis Imaging Routine Encounter for screening mammogram for malignant neoplasm of breast Expected: 11/18/2025, Expires: [facility]26[facility] Work Phone: comment on above:Expected: 11/18/2025, Expires: 09/06/2026Start: 07-07-2025 End: 60-44-8654Bhgbrll encounter twijnsbku62/10/2025 10:15 AM EDT Office Visit [facility] [address] [place] [address] Yesi Clinton, DO [address] [place] [address] [facility] OBStart: 49-89-7082Vdbjqspgj (E2) [Mass/volume] in Serum or PlasmaPremier Health [facility] Hospital CenterStart: 71-70-5922Ztgshctdhnss [Mass/volume] in Serum or PlasmaPremier Health [facility] Valley Hospital CenterStart: 11-21-0487Czf hormone binding globulin measurementPremier Health [facility] CenterStart: 43-75-6439HskdzqtsjThe University of Toledo Medical Centertart: 11-08-2024 End: 58-91-9639GSA Breast - bilateral screeningBilateral screening mammogram with tomosynthesis Imaging Routine Screening mammogram for breast cancer Expected: 11/08/2024, Expires: 08/31/2025[facility] Work Phone: comment on above:Expected: 11/08/2024, Expires: 08/31/2025Start: 32-70-9175Hrhikng [facility] Work Phone: Start: 17-60-8728Qsorlzwd identified in Urine by [facility] Main Campustart: 59-94-4293TlmorpqviThe University of Toledo Medical Centertart: 08-41-3725DaopznjlrHolzer HospitalBacteria identified in Urine by [facility] HamiltonComprehensive metabolic 1999 panel - Serum or [facility] Comprehensive metabolic 1999 panel - Serum or [facility] CenterCT Thoracic spine WO Berger HospitalGlucose measurement estimated from glycated hemoglobinHolzer Hospital Glucose measurement estimated from glycated hemoglobinHolzer HospitalHemoglobin A1c/Hemoglobin.total in [facility] Hemoglobin A1c/Hemoglobin.total in [facility] Medical CenterMR Lumbar spine WO Berger HospitalPatient Education [facility] Work Phone: Patient [facility] Work Phone: Testosterone Free [Mass/volume] in Serum or Plasma [facility]zer HospitalUrine [facility] XR Lumbar spine 4 [facility] Immunizations Immunization DateImmunizationNotesCare MtgfkgbgHalqjjer55-23-8652zbmdwwyul, seasonal, injectablePatient ObjectionDahali Glass Other [facility] [employer] Other [id number], injectable, quadrivalent, preservative KeyO Varun Glass Work Phone: [facility]12-26-2019measles, mumps and rubella virus vaccineDO Varun Glass Work Phone: [facility]12-26-2019varicella virus vaccineDO Varun Glass Work Phone: [facility]03-08-2016Rocephin 500 mgDahali Glass Other [employer] Other [id number] B vaccine, adult dosageDO Varun Glass Work Phone: [facility]09-27-2002hepatitis B vaccine, adult dosageDO Varun Glass Work Phone: [facility]08-09-2002hepatitis B vaccine, adult dosageDO Varun Glass Work Phone: [facility] HospitalNEGATED: Highlighted row has not occurred!48-28-5485ZEJZ-CoV-2 (COVID-19) Ad26 vaccine, recombinant Rhonda Garcia [facility] NEGATED: Highlighted row has not occurred!07-26-2021 influenza, seasonal, injectablePatient ObjectionDahali Glass Other [facility] Payers DatePayer CategoryPayerPolicy [id number] Health InsuranceMEDICAL MUTUAL [id number] [employer] [id number] 2022-Present [address] [place] [id number] 2.16840.1.800401.3.57[id number] 2.0.1.645379.3.57[id number] 2.0.1.112161.3.57[id number] 2.0.1.827345.3.57[id number] 2.0.1.085189.3.57[id number] 2.0.1.118421.3.57[id number] 2.0.1.667386.3.57[id number] 2.0.1.077540.3.579.2.35[id number]/HFA/FAP [id number] [id number]-36c7-517m-[id number] 2.840.1.7[id number] 2.840.1.747101.3.579.2.531 [id number] 2.16840.1.8[id number] 2.840.1.426845.3.579.2.531 Social History DateTypeDetailFacilityStart: 11-27-2021 End: 58-81-0380Dykkkeg smoking statusEx-smoker (finding)Formerly [facility] [employer] Other Tobacco smoking statusNeverExec[facility] [employer] start: 06-28-2024 End: 94-50-5076Arv Assigned At [facility] [employer] Other Start: 14-19-2694Ypy Assigned At [facility] Hospitaltart: 38-50-6331Xogrfji smoking status NHISNever smoked tobaccoNOMS HealthcareStart: 06-23-2023 End: 71-37-0380Onwssbr use and exposureSmokeless tobacco non-userNOMS Healthcare Start: 07-01-2024 End: 69-19-9205Qpoxewapj beverage intakeCurrent drinker of alcohol (finding)[facility] HealthcareStart: 06-28-2024 End: 96-72-3880Mxbfila of Social functionNOMS HealthcareStart: 36-52-0449Rowotbm CommentOccasional useNOMS HealthcareStart: 79-35-3546Yiu assigned at birthNot on fileNOMS HealthcareStart: 08-08-2024 End: 37-39-4801WrxMhpchd (finding)[facility] Centertart: 96-41-0261MkgPvud (finding)[facility] HospitalHistory of tobacco useCurrent smokerNOMS HealthcareHistory of tobacco useCigarette SmokerNOMS Healthcare Goals DatePatient GoalDesired Activity/State Functional Status LpnjNjrafigilnMkcqkfUfxaicnh73-50-0714Rgrngcgnrd StatusN/AFSelect [facility] Clinical Notes 12-24-2011 to 07-07-2025 Note Date & SymqJpsfGrkvyouw13-73-0832 History of Present illness Narrative* Yesi Clinton, - 07/07/2025 10:15 AM EDT Images from the original note were not included. Yesi Clinton, Obstetrics and Gynecology Araseli Richardson 1975 07/07/25 [id number] Yearly Wellness Exam Chief Complaint Patient presents with Gynecologic Exam Pt presents for yearly. Denies breast,bowel, bladder,transit operations supervisor problems. Menses are becoming irregular. Visit Vitals BP 120/82 Ht 5' 4 Wt 193 lb LMP 06/10/2025 (Approximate) BMI 33.13 kg/m OB Status Having periods Smoking Status Former BSA 1.99 m History of Present Illness The patient presents for a yearly checkup. She reports experiencing irregular menstrual cycles, with instances of spotting for a few days characterized by darker blood. The longest duration without a period she has experienced is one month. She also mentions an increase in mucous discharge, which she notices when wiping after urination. Sheoccasionally experiences night sweats, limited to her head and neck, but does not report any hot flashes during the day. She typically feels cold. She continues to use an intrauterine device (IUD) for contraception. She reports no breast-related issues such as lumps or changes. She expresses concern about a cyst that was previously identified on an ultrasound. Gynecological History discussed: - Frequency and flow: Irregular cycles with spotting for a few days CONTRACEPTION: - Type: Intrauterine device (IUD) FAMILY HISTORY She reports no family history of breast cancer. Current Outpatient Medications Medication Sig Dispense Refill ALPRAZolam (Xanax) 1 MG tablet omeprazole (PriLOSEC) [address] capsule Take 20 mg by mouth in the morning. Take before meals. PROzac 40 MG capsule No current facility-administered medications for this visit. Allergies Allergen Reactions Biaxin [Clarithromycin] GI intolerance Past Medical History: Diagnosis Date Abnormal Pap smear of cervix Depression Hemorrhoids, internal IBS (irritable bowel syndrome) Past Surgical History: Procedure Laterality Date SECTION, LOW TRANSVERSE 2010 COLONOSCOPY 2010 COLONOSCOPY 08/2022 Redundant colon COLPOSCOPY 1998 DILATION AND CURETTAGE OF UTERUS 2011 INTRAUTERINE DEVICE INSERTION 11/22/2021 Mirena VAGINAL AFTER SECTION 2019 OB History Para Term AB Living 7 3 1 2 4 3 SAB IAB Ectopic Multiple Live Births 3 1 0 0 3 # Outcome Date GA Lbr Norman/2nd Weight Sex Type Anes PTL Lv 7 IAB 6 SAB 5 SAB 4 SAB 3 2 1 Term Obstetric Comments Pap 06/12/23- Neg, HPV Neg Mammogram 11/18/24- Neg ([facility]) Colonoscopy - Redundant colon Mirena IUD inserted 11/22/21 ROS General: Denies fevers/chills Eyes: Denies vision changes ENT: Denies neck stiffness, neck mass Endocrine: Denies polydipsia and polyuria Respiratory: Denies shortness of breath Cardiovascular: Denies chest pain and palpitations Gastrointestinal: Denies changes in bowel habits, blood in stool, constipation and diarrhea. Hematology: Denies easy bruising. Women Only: Denies breast masses, skin changes, nipple discharge, abnormal bleeding, pelvic pain and dyspareunia Genitourinary: Denies dysuria, pelvic pain and nocturia Skin: Denies rashes/lesions Neurologic: Denies headaches, dizziness, syncope Psychiatric: Denies hallucinations, suicidal ideas EXAM GENERAL EXAMINATION: Alert, oriented, well developed, well nourished. HEAD: Normocephalic, atraumatic. EYES: MAURICE, sclera anicteric. EARS: No obvious hearing deficit. NECK/THYROID: Neck supple no cervical lymphadenopathy no thyromegaly. LYMPH NODES: No axillary, supraclavicular or inguinal adenopathy. SKIN: Warm and dry. No rashes HEART: Regular rate and rhythm. No murmur LUNGS: Clear to auscultation bilaterally. CHEST: Axillary nodes grossly normal. BREASTS: No dominant masses palpable bilaterally, no skin changes, nipple discharge, supra-clavicular or axillary adenopathy ABDOMEN: Soft, nontender, nondistended, no hernia or masses palpable. BACK: No obvious scoliosis/kyphosis. FEMALE GENITOURINARY: EFG without sores/lesions, normal vaginal mucosa-no discharge, cervix withoutlesions, IUD strings visualized at cervical os, uterus RV, NSSC, no adnexal masses, cul-de-sac negative. EXTREMITIES No edema. NEUROLOGIC: Alert and oriented. PSYCH: Cooperative with exam. ICD-10-CM 1. Encounter for gynecological examination with abnormal finding Z01.411 2. Encounter for screening mammogram for malignant neoplasm of breast Z12.31 Bilateral screening mammogram with tomosynthesis 3. Intrauterine device surveillance Z30.431 4. Irregular intermenstrual bleeding N92.1 Assessment & Plan Advised pt to perform monthly self breast exams. Encouraged calcium and Vitamin D intake. 1. Annual checkup: - Irregular menstrual cycles and spotting are likely due to the IUD, which can occasionally cause increased mucus production. There are no indications of infection or other concerning signs. - Physical exam findings include a healthy vagina with no signs of dryness or infection. A mammogram has been ordered for 10/2025. A Pap smear will be conducted next year. The patient is advised to retain her IUD until the age of 55, even if her periods cease, to prevent the resumption of menstruation. The colonoscopy is up-to-date and will be due in 08/2028. We reviewed a pelvic ultrasound from 2 years ago which showed some small left ovarian cysts. She is having no symptoms and I feel nothingon exam. She is to notify us for any symptoms going forward. I plan on seeing her yearly. If she develops menopausal symptoms that are severe like hot flashes or night sweats she can contact us for treatment options. documented in this encounterMissouri Delta Medical CenterLgefuhzzid94-01-1293 Evaluation note* Author Varun Glass [facility] HospitalAuthoredptbanner [facility] 2024 9:50amThe above note written by ___Vanna Cook____ acting as human recorder, note dictated by Dr. Vernon .I performed the above HPI, ROS, and Examination. I formulated and dictated the treatment plan and was present for entire encounter. Varun Glass D.O. [facility] Work Phone: 1(201) 229-305908-04-2025 Evaluation note* Author Varun Glass [facility] 2024 11:10amThe above note written by ___Vanna Cook____ acting as human recorder, note dictated by Dr. Vernon .I performed the above HPI, ROS, and Examination. I formulated and dictated the treatment plan and was present for entire encounter. Varun Glass D.O. [facility] Work Phone: 1(709) 239-764808-04-2025 Evaluation note* Diagnosis Onset Date Resolution Status Admit Date Anxiety acuteAugust 2024 10:26amCervical spondylosisacuteAugust 2024 10:26am HyperglycemiaacuteAugust 2024 10:26amHyperlipidemiaacuteAugust 2024 10:26amHypocalcemiaacuteAugust 2024 10:26amIrregular periodsacuteAugust 2024 10:26amOther obesity due to excess caloriesacuteAugust 2024 10:26am [facility] Work Phone: 1(774) 681-649004-16-2025 Evaluation note* Author Varun [facility] Errodrigo [facility] 2024 10:29amThe above note written by ___Vanna Cook____ acting as human recorder, note dictated by Dr. Vernon .I performed the above HPI, ROS, and Examination. I formulated and dictated the treatment plan and was present for entire encounter. Varun Glass D.O. [facility] Work Phone: 1(994) 825-565402-10-2025 Evaluation note* Author Varun [facility] 2024 5:42pmThe above note written by ___Vanna Cook____ acting as human recorder, note dictated by Dr. Vernon .I performed the above HPI, ROS, and Examination. I formulated and dictated the treatment plan and was present for entire encounter. Varun Glass D.O. Author Varun Glass [facility] 2023 10:59amThe above note written by ___Vanna Cook____ acting as human recorder, note dictated by Dr. Vernon .I performed the above HPI, ROS, and Examination. I formulated and dictated the treatment plan and was present for entire encounter. Varun Glass D.O. Author Varun [facility] 2024 10:28amThe above note written by ___Vanna Cook____ acting as human recorder, note dictated by Dr. Vernon .I performed the above HPI, ROS, and Examination. I formulated and dictated the treatment plan and was present for entire encounter. Varun Glass D.O. [facility] Work Phone: 1(812) 904-409912-06-2024 Evaluation note* Author Varun Glass [facility] 2023 10:59amThe above note written by ___Vanna Cook____ acting as human recorder, note dictated by Dr. Vernon .I performed the above HPI, ROS, and Examination. I formulated and dictated the treatment plan and was present for entire encounter. Varun Glass D.O. Author Varun Glass [facility] 2024 10:28amThe above note written by ___Vanna Cook____ acting as human recorder, note dictated by Dr. Vernon .I performed the above HPI, ROS, and Examination. I formulated and dictated the treatment plan and was present for entire encounter. Varun Glass D.O. [facility] Work Phone: 1(127) 576-805111-19-2024 Radiology Diagnostic study [facility] [place] [address] Ultrasound Report Signed Patient: Araseli Fernandez MR#: [id number] : 1975 Acct:[id number] Age/Sex: 49 / F ADM Date: 4 Loc: Room: Type: [facility] Attending Dr: Celina [facility] Ordering Provider: CELINA NORWOOD Date of Service: 08/16/24 US/US [facility] outreach aorta: SCREENING Copies to: CELINA NORWOOD ~ Screening ultrasound of the abdominal aorta HISTORY: Screening There is no abdominal aortic aneurysm. Iliac arteries unremarkable. US/US [facility] outreach aorta IMPRESSION: No abdominal aortic aneurysm. Impression dictated by: Rishabh Lakhani M.D.08/16/2024 9:20 PM Dictation Location: [place] [address] Tech: Nieves Faria Transcribed By: CHELSEY 08/16/242119 Dictated By: Rishabh Lakhani DO 08/16/242119 Signed By: 08/16/242119 [facility]11-11-2024 Hospital Discharge instructions Ambulatory Orders* Referral to PT ([facility]) Time Frame: 08/08/24, Location: None Selected [facility] Work Phone: [phone] 154-256710-11-2024 Evaluation note* Author Varun Glass [facility] 2023 12:20pmThe above note written by ___Vanna Cook____ acting as human recorder, note dictated by Dr. Vernon .I performed the above HPI, ROS, and Examination. I formulated and dictated the treatment plan and was present for entire encounter. Varun Glass D.O. [facility] Work Phone: [phone] Evaluation note* Author Varun Glass [facility] 2023 12:20pmThe above note written by ___Vanna Cook____ acting as human recorder, note dictated by Dr. Vernon .I performed the above HPI, ROS, and Examination. I formulated and dictated the treatment plan and was present for entire encounter. Varun Glass D.O. Author Varun Glass [facility] 2023 5:02pmI performed the above HPI, ROS, and Examination. I formulated and dictated the treatment plan and was present for entire encounter. Varun Glass D.O. [facility] Work Phone: [phone] Evaluation note* Author Varun Glass [facility] 2023 12:20pmThe above note written by ___Vanna Cook____ acting as human recorder, note dictated by Dr. Vernon .I performed the above HPI, ROS, and Examination. I formulated and dictated the treatment plan and was present for entire encounter. Varun Glass D.O. Author Varun Glass [facility] 2023 5:02pmI performed the above HPI, ROS, and Examination. I formulated and dictated the treatment plan and was present for entire encounter. Varun Glass D.O. [facility] 10:59amThe above note written by ___Vanna Cook____ acting as human recorder, note dictated by Dr. Vernon .I performed the above HPI, ROS, and Examination. I formulated and dictated the treatment plan and was present for entire encounter. Varun Glass D.O. [facility] Work Phone: [phone] History of Present illness Narrative* Yesi Clinton, DO - 07/01/2024 9:00 AM EDT Images from the original note were not included. Yesi Clinton, Obstetrics and Gynecology Araseli Richardson 1975 07/01/24 [id number] Yearly Wellness Exam Chief Complaint Patient presents with Gynecologic Exam Yearly, Pt denies Breast pain ,urinary, bowel or transit operations supervisor issues. LMP: 06/13/2024 Last Pap: 06/12/2023 Pt would like to discuss her weight gain and her overall fatigue and joint pain. Visit Vitals BP 126/88 Wt 212 lb 1.6 oz BMI 36.41 kg/m OB Status Having periods Smoking Status Never BSA 2.08 m History of Present Illness The patient presents for a yearly checkup. She reports regular menstrual cycles, each lasting 6 to 7 days, with no significant changes compared to the previous year. She has no breast-related issues. Her intrauterine device (IUD) has been in place for over 2 years. She experiences occasional pain during intercourse, depending on the position. She also experiences night sweats, particularly around her menstrual cycle, affecting her head, chest, and back. A pelvic ultrasound was performed last year due to left-sided pain, which she continues to experience. She also reports generalized fatigue and discomfort during exercise. She has read that low estrogen levels can lead to rapid weight gain and joint pain, but is unsure of its relevance to her symptoms. She underwent a colonoscopy 2 years ago, which revealed a redundant colon but no polyps. She was previously diagnosed with Irritable Bowel Syndrome (IBS), but this diagnosis was not confirmed throughtesting. She occasionally experiences constipation. She had an MRI and ultrasound, which did not reveal any concerning findings. She is not overly worried about potential cancer. She has been struggling with weight gain. She was previously on Belviq, which helped her lose weight, but she regained it last year. She is considering trying Adipex. Current Outpatient Medications Medication Sig Dispense Refill ALPRAZolam (Xanax) 0.5 MG tablet Take 0.5 mg by mouth as needed at bedtime for anxiety DULoxetine (Cymbalta) [address] capsule Take 60 mg by mouth in the morning. Do not crush or chew. . pantoprazole (ProtoNix) 40 MG EC tablet Take 40 mg by mouth in the morning. Take before meals. Do not crush, chew, or split.. venlafaxine XR (Effexor XR) 37.5 MG 24 hr capsule Take 37.5 mg by mouth Daily Do not crush or chew. No current facility-administered medications for this visit. Allergies Allergen Reactions Biaxin [Clarithromycin] GI intolerance Past Medical History: Diagnosis Date Abnormal Pap smear of cervix Depression (CMS/HCC) Hemorrhoids, internal IBS (irritable bowel syndrome) Past Surgical History: Procedure Laterality Date SECTION, LOW TRANSVERSE 2010 COLONOSCOPY 2010 COLONOSCOPY 08/2022 Redundant colon COLPOSCOPY 1997 DILATION AND CURETTAGE OF UTERUS 2010 INTRAUTERINE DEVICE INSERTION 11/22/2021 Mirena VAGINAL AFTER SECTION 2020 OB History Para Term AB Living 7 3 1 2 4 3 SAB IAB Ectopic Multiple Live Births 3 1 0 0 3 # Outcome Date GA Lbr Norman/2nd Weight Sex Type Anes PTL Lv 7 IAB 6 SAB 5 SAB 4 SAB 3 2 1 Term Obstetric Comments Pap 06/12/23- Neg, HPV Neg Mammogram 11/06/23- Neg ([facility] [place]) Colonoscopy - Redundant colon Mirena IUD inserted 11/22/21 ROS General: Denies fevers/chills Eyes: Denies vision changes ENT: Denies neck stiffness, neck mass Endocrine: Denies polydipsia and polyuria Respiratory: Denies shortness of breath Cardiovascular: Denies chest pain and palpitations Gastrointestinal: Denies changes in bowel habits, blood in stool, constipation and diarrhea. Hematology: Denies easy bruising. Women Only: Denies breast masses, skin changes, nipple discharge, abnormal bleeding, pelvic pain and dyspareunia Genitourinary: Denies dysuria, pelvic pain and nocturia Skin: Denies rashes/lesions Neurologic: Denies headaches, dizziness, syncope Psychiatric: Denies hallucinations, suicidal ideas EXAM GENERAL EXAMINATION: Alert, oriented, well developed, well nourished. HEAD: Normocephalic, atraumatic. EYES: MAURICE, sclera anicteric. EARS: No obvious hearing deficit. NECK/THYROID: Neck supple no cervical lymphadenopathy no thyromegaly. LYMPH NODES: No axillary, supraclavicular or inguinal adenopathy. SKIN: Warm and dry. No rashes HEART: Regular rate and rhythm. No murmur LUNGS: Clear to auscultation bilaterally. CHEST: Axillary nodes grossly normal. BREASTS: No dominant masses palpable bilaterally, no skin changes, nipple discharge, supra-clavicular or axillary adenopathy ABDOMEN: Soft, nontender, nondistended, no hernia or masses palpable. BACK: No obvious scoliosis/kyphosis. FEMALE GENITOURINARY: EFG without sores/lesions, normal vaginal mucosa-no discharge, cervix withoutlesions, IUD strings visualized at cervical os, uterus RV, NSSC, no adnexal masses, cul-de-sac negative. EXTREMITIES No edema. NEUROLOGIC: Alert and oriented. PSYCH: Cooperative with exam. ICD-10-CM 1. Screening mammogram for breast cancer Z12.31 Bilateral screening mammogram with tomosynthesis 2. Encounter for gynecological examination with abnormal finding Z01.411 3. Encounter for screening mammogram for malignant neoplasm of breast Z12.31 4. Intrauterine device surveillance Z30.431 5. Fatigue, unspecified type R53.83 6. Weight gain R63.5 7. Perimenopause N95.1 Assessment & Plan Advised pt to perform monthly self breast exams. Encouraged calcium and Vitamin D intake. 1. Annual physical examination. Her mammogram from 10/2023 was normal, and her Pap smear from last year was negative and HPV negative. The pelvic ultrasound last year revealed adenomyosis, a fibroid, and a well-positioned IUD. Cysts were also noted on the left ovary. The pain she experiences does not appear to be related to gastrointestinal issues such as colitis. A colonoscopy conducted in 08/2022 was normal, although a redundant colon was observed. A mammogram has been ordered for 10/2024. 2. Weight gain. Her current medications do not seem to contribute to weight gain. She is not yet menopausal, and her estrogen levels may be slightly elevated due to reduced ovulation. Effexor, which she is currentlytaking, is typically used to manage hot flashes, but it does not seem to be effective in her case. Cymbalta, another medication she is on, may help with muscle aches and pains. Adipex has been recommended for weight management. She has been advised to monitor her thyroid function during her annual blood work. 3. Generalized pain and fatigue. The patient reports generalized pain and fatigue, which affects her ability to exercise. The ultrasound showed some cysts on the left ovary, but nothing significant. The possibility of endometriosis or adhesions was discussed, and a diagnostic laparoscopy may be considered if the pain becomes more severe and impacts her daily life. documented in this encounterMissouri [facility] Medical [id number] Evaluation note* Encounter Date Diagnosis Assessment Notes Treatment Notes Treatment Clinical Notes Sep, Chronic pain (ICD-10 - G89.29) She is doing all right with the duloxetine and would like a refill sent in to [facility]. Sep,Weight gain (ICD-10 - R63.5)She did not meet the 5% weight loss goal here at the 3-month gray that was necessary to continue treatment with the Adipex-P. We had a lengthy discussion concerning treatment options and weight loss options and discussed Contrave but she is hesitant due to her other medications and the rodriguez. We settled on using either lose it or [employer] fitness pal application for her phone and to follow the calorie recommendations daily and to log all of her food. She is having a difficult time exercising due to her back pain now that she is back to work. She will call us in 1 week with what her weight has done at the 1 week gray of the following 1 of these applications and logging her food. I would like to have her call us weekly with her weights and progress. Sep,epression with anxiety (ICD-10 - F41.8) Sep,aresthesia (ICD-10 - R20.2) [facility] Other 12-15-2023 NoteHNO ID: [id number] Author: Guy Alba MD Service: ? Author Type: Physician Type: Progress Notes Filed: 09/11/2023 9:16 AM Note Text: 48 year old female here for itchy scaly rash Present since April Location Bottoms of feet and bilateral hands This began when her father was ill and [facility] Was prescribed clobetasol which did not help Used it twice daily for a few weeks 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 Social History Tobacco Use Smoking status: Former Types: Cigarettes Smokeless tobacco: Never Vaping Use Vaping Use: Never used Substance Use Topics Alcohol use: Yes Comment: Social/Occ Allergies: ALLERGIES Allergen Reactions Clarithromycin GI Upset Current Outpatient Medications on File Prior to Visit Medication Sig ALPRAZolam (XANAX) 1 mg tablet as needed. cyclobenzaprine (FLEXERIL) 10 mg tablet daily at bedtime. FLUoxetine HCl (PROZAC) 40 mg capsule once daily. No current facility-administered medications on file prior to visit. PE: Limited exam. With Jose R General: no acute distress Mood: alert and oriented X's 3 Hair/Scalp: normal Face: normal Eyes/eyelids: normal Lips/Oral mucosa: normal Neck: normal R/L upper extremity: Hyperlinear palms Two scaly patches right palm, 1 small scaly patch left palm R/L lower extremity: Bilateral soles with thick hyperkeratotic scale, erythematous scaly fissured plaques Right Lateral Plantar Surface A/P: Rash and nonspecific skin eruption Right Lateral Plantar Surface SKIN / NAIL BIOPSY - Right Lateral Plantar Surface Type of biopsy: punch Informed consent: discussed and consent obtained Timeout: patient name, date of , surgical site, and procedure verified Procedure prep: Patient was prepped and draped in usual sterile fashion Prep type: Isopropyl alcohol Anesthesia: the lesion was anesthetized in a standard fashion Anesthetic: 1% lidocaine w/ epinephrine 1-100,000 buffered w/ 8.4% NaHCO3 Punch size: 3 mm Suture size: 4-0 Suture type: Prolene (polypropylene) Hemostasis achieved with: suture and aluminum chloride Outcome: patient tolerated procedure well Post-procedure details: sterile dressing applied and wound care instructions given Dressing type: bandage and petrolatum Specimen A - SURGICAL PATHOLOGY SKIN ONLY Palms more consistent with eczema Cracked and fissured in wintertime Tried clobetasol in the past twice daily for a few weeks no relief Feet more consistent with psoriasis She still does not have a diagnosis We discussed pros and cons of biopsy versus empiric therapy She is very very concerned about immunosuppressive medications [facility] decision to proceed with biopsy today Start betamethasone augmented two times daily Soak feet, pat dry, Aquaphor/Vaseline, thick layer of cream, cover feet Discussed treatment options including light therapy RTC 14 days suture removal Pt voiced understanding Medical Decision Making: Medical Decision Making Level: 1 - N/A The documentation for this note was completed by Alexey Montoya MA acting as scribe for Guy Alba MD. September 11, 2023 8:08 AM. I agree with the Chief Complaint, ROS, and Past Histories independently gathered by the clinical network support administrator and the remaining scribed note accurately describes my personal service to the patient. Guy Alba, [facility]12-08-2023 Evaluation note* Encounter Date Diagnosis Assessment Notes Treatment Notes Treatment Clinical Notes Aug, Cough (ICD-10 - R05.9) resolved She v oices that her cough has resolved. Aug,hronic pain (ICD-10 - G89.29)She voices that her back was better when she was not working, but she has returned to work so by the end of the day her low back is irritated again. She is taking above medication daily as directed. We discussed serotonin syndrome and the symptoms of this because she is going to increase her Adipexto 1 tablet per day. When she had her PAP/Pelvic exam she discussed her back/leg pain. Dr. Clinton ordered a vaginal ultrasound who assured her there is no cancer but she had a fibroid tumor on the uterus and something inside the uterus that would resolve when she started menopause and 3 cysts on the left ovary but he assured her she did not have cancer. He told her she could have a hysterectomy or do hormone therapy. I advised her that I did not feel that the cysts would cause her back pain orleg pain that she has. If there was any concern for cancer she would have been referred immediately. She was encouraged to try to move around more at work, be sure she is sitting in an ergonomically correct desk to try to help her back. Aug,Weight gain (ICD-10 - R63.5)She has only been taking the Adipex for four weeks at this point and is only taking 1/2 tablet daily. I would like her to increase her dose to 1 tablet daily and see how she is doing in one month. If she has lost 10.5-11 pounds in the next two months then she can continue with the medication. She is agreeable to this. She is no longer on the Prednisone. We discussed the signs/symptoms of serotonin syndrome with her increasing the Adipex and being on the Duloxetine 60 MG daily. She is to let me know if she were to have any of these symptoms. She voices that she has been eating normally but hasnot been able to add in exercise because of her back and leg. I did advise her that she has to get her heart rate up in some way. She can do gentle walking but by the end of the day her back is irritated. Aug,Jw returned to see the house detective for her hands and was told that they wanted to treat her withOtezla for psoriasis but was told that some people cannot tolerate this because it causes severe diarrhea. She has not started this because she is concerned about taking it. She was given Clobetasol for her hands, and Prednisone but this did not clear up the hands. I did not recommend Otezla. Sheis considering getting a second opinion. [facility] Other 11-10-2023 Evaluation note* Encounter Date Diagnosis Assessment Notes Treatment Notes Treatment Clinical Notes Jul, Cough (ICD-10 - R05.9) She voices that the cough is better but is still not completely gone. She does have alot of sinus drainage now. Recently she went outside and it was cool outside and this made her cough. Sometimes ifluis a is excited or starts to yell she gets winded easily or starts to cough. She wonders if she may have Asthma. Her mom was diagnosed with Asthma later in life. I did recommend that she use and inhaler and see if this helps her cough. Side effects/risks/benefits of medication were reviewed. It can make her feel like she has anxiety which is a normal side effect from the medication. The inhaler would help to resolve the cough and then if she knows she is going outside in the cooler weather or will be in an environment that is cooler or she will have trouble she could use the inhaler 15 min prior to going out and this should help prevent a cough. She had a normal chest x-ray in January (2022) butif at any point she would like a repeat chest x-ray she is to call for an order. Her lung sounds are clear on auscultation today. Jul,Eczema (ICD-10 - L30.9)bilateral feetShe voices that she saw a house detective for spots on her hands and the bottom of both of her feet. She was told that stress could cause this. She was put on a steroid cream/ointment but this did not help so she was started on oral Prednisone and she is on day 7 of the oral steroids. It has helped her feet a little bit but she tries to air her feet out on the weekends. She will return to see Dr. Segal in mid-August (2022). I did recommend that for her right hand palm she buy OTC Lamisil cream and begin using this on just the palm area and see if this helps. She should use this twice a dayuntil she is seen by Dr. Segal. If this is eczema the Lamisil will not hurt it. She could even try one foot and the palm area but leave one foot the way it is to show Dr. Segal in August (2022) so she can see what worked better. I did explain to her that Asthma and Eczema are the same condition presenting in different ways. Jul,Weight gain (ICD-10 - R63.5)She was not to start the Adipex until her appetite returned so she did not start this until 08/02/23. She is currently taking Prednisone which will make it difficult for her to lose weight. 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 She was encouraged to watch her intake of carbs and sugars. Stay active. I will see her back in one month as scheduled. Side effects/risks/benefits of medication were reviewed. Jul,nxiety (ICD-10 - F41.9)She does continue to use and benefit from the Xanax. An OARRS report was printed and reviewed, no discrepancies noted. Frequent appointments needed due to addiction potential of medication. Pain inventory sheet completed and reviewed if opiod medication given. Pain contract is on file if pertinent. Patient will have office visits every three months for evaluation or sooner if needed. I discussed addiction potential of medication with the patient. Discussed with the patient and provided a treatment plan including the use of non-opiod analgesics and non-pharmacological intervention with patient if treated for pain. We have discussed realistic benefits and known risks of opiod/controlled therapy and the expected benefits for both pain and function. These benefits outweigh the risks. Patient has been counselled on the dangers of combining opiods/controlled prescriptions with alcohol or other sedatives and counseled on the safe storage and disposal of opiods/controlled prescriptions. Do not drive or operate heavy machinery after taking opiod/controlled medication. I have verified that no current substance abuse treatments are being prescribed. [facility] Other 10-13-2023 Evaluation note* Encounter Date Diagnosis Assessment Notes Treatment Notes Treatment Clinical Notes Jun, Anxiety (ICD-10 - F41.9) [facility] Other 10-13-2023 Evaluation note* Encounter Date Diagnosis Assessment Notes Treatment Notes Treatment Clinical Notes Jun, Cough (ICD-10 - R05.9) She voices that she cannot shake the cough that she has had since she became sick in May (2022). She voices that her dad had lung cancer and just passed and now she is concerned because she cannot get rid of her cough. She is not coughing up blood. Sometimes she coughs up clear and sometimes it is thick. Her cough is worse when she wakes up. She is a former smoker, she smoked 20 years agoabout a pack per day. I did recommend a CT scan but she refuses due to insurance, she voices that she would have to pay for the entire cost of the scan. I did explain to her that this cough can be ongoing for up to six weeks. She has had this cough for almost one month, so she could easily have this for another couple of weeks. If she has a cough past 3-4 weeks from now she is to let me know. If she needs a refill on the cough syrup she should let me know. Do not mix the medicine with alcohol or drive after taking. She has completed two rounds of Augmentin. I encouraged her to take four deep breaths as often as she can every hour that she is awake. Jun,hronic pain (ICD-10 - G89.29)She voices that she went to a massotherapist after she was seen here in April and this helped her pain. She is now on Cymbalta 60 MG but is feeling much better. I suspect it is due to the higher dose of Cymbalta. She mentions starting Wellbutrin to help with weight loss but I suspect that if we have her come off the Cymbalta she will not feel as good as she does now. She is willing to stay on the Cymbalta. Jun,eripheral neuropathy (ICD-10 - G62.9)She is not taking the Gabapentin at this time. She voices that she has had less pain since she had her massage after she was last seen. She has not worked in 2.5 weeks. She suspects that her pain is being caused by her job and sitting at her desk. Jun,nxiety (ICD-10 - F41.9)She has been using her Xanax, she just recently lost her dad and is under a great deal of stress. The Xanax does help when she uses it. An OARRS report was printed and reviewed, no discrepancies noted. Frequent appointments needed due to addiction potential of medication. Pain inventory sheet completed and reviewed if opiod medication given. Pain contract is on file if pertinent. Patient will have office visits every three months for evaluation or sooner if needed. I discussed addiction potential of medication with the patient. Discussed with the patient and provided a treatment plan including the use of non-opiod analgesics and non-pharmacological intervention with patient if treated for pain. We have discussed realistic benefits and known risks of opiod/controlled therapy and the expected benefits for both pain and function. These benefits outweigh the risks. Patient has been counselled on the dangers of combining opiods/controlled prescriptions with alcohol or other sedatives and counseled on the safe storage and disposal of opiods/controlled prescriptions. Do not drive or operate heavy machinery after taking opiod/controlled medication. I have verified that no current substance abuse treatments are being prescribed. Jun,Weight gain (ICD-10 - R63.5)She has lost 7 pounds in the last week. She is frusturated by her weight and would like to considertaking Adipex again. We discussed her taking the Adipex. She would need to call with a BP reading in one week and would need to be seen again in one month. She does need to make lifestyle and dietarychanges that she can continue with once she has lost weight. Side effects/risks/benefits of medication were reviewed. [facility] Other 10-04-2023 Evaluation note* Encounter Date Diagnosis Assessment Notes Treatment Notes Treatment Clinical Notes Jun, Acute sinusitis (ICD-10 - J01.90 ) [facility] Other 09-19-2023 Evaluation note* Encounter Date Diagnosis Assessment Notes Treatment Notes Treatment Clinical Notes May, Acute sinusitis (ICD-10 - J01.90 ) She has tried OTC products without relief. I will treat her with an antibiotic. Guidance is given on how to take the medication. She is to eat yogurt daily while on ATB to prevent GI upset. Rest, push fluids. Medication can make stool loose but if she develops severe diarrhea she is to stop the medication and let me know right away. May,ough (ICD-10 - R05.9)She tested negative for COVID-19 yesterday 06-15-23. Will provide her with cough medication but she is not to take any Xanax within 12 hours of taking[address] Do not drive or drink alcohol after taking. Do not take anything sedating in addition to the Hycodan. Side effects/risks/benefits of medication werereviewed. May,Other10:32 AM - 10:38 AM She voices that she has been under alot of stress due to her dad who has cancer and has been in andout of the hospital. She feels due to her being run down this is how she got sick. Provided her with an off work note for 06-15 and 06-16-23 due to medical reasons. [facility] Other 08-04-2023 Evaluation note* Encounter Date Diagnosis Assessment Notes Treatment Notes Treatment Clinical Notes Apr, Peripheral neuropathy (ICD-10 - G62.9) [facility] Other 08-04-2023 Evaluation note* Encounter Date Diagnosis Assessment Notes Treatment Notes Treatment Clinical Notes Apr, Lumbar pain (ICD-10 - M54.50) She voices that when she saw Marce at neurology she seemed upset that Araseli went off the Venlafaxine and this upset Araseli so she has not returned to see her. She did not have the SI joint injection done that Dr. Warner recommended. She has to pay for this out of pocket due to her deductible and she does not want to spend the money if it will not help. Her pain is in the left buttock andshe will have an ache that comes down her left leg and now she has a burning sensation on the top of her left foot. No pins/needles just burning under her skin. Her pain is progressively getting worse. If she lays on the left side for too long it hurts, there is no real comfortable position in bed.The left side aches, if she stands for a long period of time she feels pressure. She does not ache in her right leg like she does in the left leg. She has to stand for a minute before she can think about getting her legs to work. She saw Dr. Clancy in the past who was going to do an injection but she did not follow up with this. He prescribed Gabapentin which she started but then did not follow through with that because she got COVID-19. She wonders if she should take Gabapentin and Duloxetine for pain. She voices that she does sit alot during her work days and it is uncomfortable for her. She tries to stretch and does try to get up and down but most of her job is sedentary. I did recommend that she research online SI joint dysfunction exercises that she can do online and begin doing these on her own. We discussed Fibromyalgia today, it is possible that she has this but the Duloxetine she is on should help this. I would like to increase her dose. She is in agreement to this. Apr,Ecchymosis (ICD-10 - R58)She has bruises all over her legs and is not sure where they are coming from. She had some mosquitobites and itched them and developed bruises around the bites. She was taking Ibuprofen and a baby ASA (on her own, no one told her to take it) I did advise her that taking the Ibuprofen and ASA together can cause bruising. As you age you bruise easier. If she has bleeding gums, bloody noses then I need to know about it otherwise this is normal. She is to continue to monitor. She does not want a work up done. Apr,Hip pain, left (ICD-10 - M25.552)I would like to order an xray of her left hip and leg to rule out any tumor or abnormality. I suspect this will put her mind at ease, she is tearful in the office today because she is concerned she has bone cancer. She will take the orders with her and will see if she can get these done at an affordable [facility]. Apr,Leg pain (ICD-10 - M79.606) Apr,eripheral neuropathy (ICD-10 - G62.9)Will start her on Gabapentin but explained to her that she will need to start on a low dose and cantitrate the dose if needed. Guidance is given on how to take the dose. Side effects/risks/benefits of medication were reviewed. Every time there is a dose change her body may feel tired but this should improve the longer she is on the medication. She voices that she has Gabapentin at home from Dr. Clancy (300 MG capsules). I would like her to begin taking this at bedtime daily, after three days (during the day) she is to add 100 MG in the morning. After 3 days of that we will add 100 MG in the mid afternoon (2-3 PM). So she will be working toward 100 MG in the morning 100 MG in the mid afternoon and 300 MG at bedtime and that will be her ongoing dose for now. Apr,hronic pain (ICD-10 - G89.29)She is to increase the Duloxetine to two times a day and when she runs out she should go to 60 MG once a day. She voices that she is not exercising because it is not worth the pain she is in by the end of the day. I would expect as she begins to feel better that she will be able to exercise and do some weight training. She questions seeing a beam builder helper to discuss arthritis and Fibromyalgia. She is on the correct treatment for Fibromyalgia. She is going to wait and see how she does with this new treatment regimen before she is referred. Apr,nxiety disorder, unspecified (ICD-10 - F41.9)She voices that she takes a Xanax at night to sleep. She is tearful in the office today, states she is scared she has bone cancer in her leg. She does feel that the Xanax works well for her when she needs it. She is going to begin taking Gabapentin and Duloxetine and may find that she does not needto take the Xanax. An OARRS report was printed and reviewed, no discrepancies noted. Frequent appointments needed due to addiction potential of medication. Pain inventory sheet completed and reviewed if opiod medication given. Pain contract is on file if pertinent. Patient will have office visits every three months for evaluation or sooner if needed. I discussed addiction potential of medication with the patient. Discussed with the patient and provided a treatment plan including the use of non-opiod analgesics and non-pharmacological intervention with patient if treated for pain. We have discussed realistic benefits and known risks of opiod/controlled therapy and the expected benefits for both pain and function. These benefits outweigh the risks. Patient has been counselled on the dangers of combining opiods/controlled prescriptions with alcohol or other sedatives and counseled on the safe storage and disposal of opiods/controlled prescriptions. Do not drive or operate heavy machinery after taking opiod/controlled medication. I have verified that no current substance abuse treatments are being prescribed. Apr,Weight gain (ICD-10 - R63.5)She has gained five pounds since last seen. She is frustrated by this. We discussed placing her on Gabapentin but I did explain to her that this medication can contribute to weight gain. She does notfeel that she overeats. Her weight has been consistent between 196-200 pounds. She does not have regular bowel movements, she can go 2-3 days without one. There are days she may over eat but for the most part she eats healthy. She weighs herself daily. She uses the [employer]. I did recommend that she weigh herself daily but keep a 7 day average. [facility] Other 06-26-2023 Evaluation note* Encounter Date Diagnosis Assessment Notes Treatment Notes Treatment Clinical Notes Feb, Anxiety disorder, unspecified (I CD-10 - F41.9) [facility] Other 05-09-2023 Evaluation note* Encounter Date Diagnosis Assessment Notes Treatment Notes Treatment Clinical Notes January, Anxiety disorder, unspecified (I CD-10 - F41.9) [facility] Other 05-02-2023 Evaluation note* Encounter Date Diagnosis Assessment Notes Treatment Notes Treatment Clinical Notes January, Chest pain (ICD-10 - R07.9) An EKG was done in the office today. I did review the results with her today. She had an echocardiogram done in the summer of 2021 and this did not show any signs of an old heart attack. I did reviewthe echocardiogram results with her today. All questions she has were answered. She is provided with an order to have a chest x-ray done, she voices that she is terrified of knowing if something willbe wrong with her. I did recommend that she have this done and she voices that she will go to the hospital and have it done today. Recommend a stress test but she declines. She was able to exercise today without any issue. January,rm pain, left (ICD-10 - M79.602)She has had left sided arm pain for the last two weeks. She voices that this just started and is intermittent, it is not in the same place all the time. It is a dull annoying ache. She can also feel a muscle in her neck that could relate to this. She was exercising doing weights and this is when the arm pain started. She has left arm discomfort today but cannot point to where it is at, she describes it as an ache. She had been lifting weights three days in a row prior to the pain starting. I did recommend that she give herself a day rest after using the weights for two days. No bruising. There is no sign of a stroke, TIA on exam. No sign of an active heart attack seen on the EKG today. Nosign of a rotator cuff injury on exam. She was able to exercise today. January,nxiety disorder, unspecified (ICD-10 - F41.9)She has had a lot of stressors going on in the last two to three weeks. A couple friends . Her osipbs-rw-[id number] fell and was transferred to [facility], so she has been going back and forth to [place]. She is tearful in the office today, voices that she is under a lot of stress right now. She tried Wellbutrin in the past and was able to handle the lower dose but not the higher dose.Together we agreed that she will start on the low dose of Wellbutrin. She has been using the Xanax more frequently because of all her stress. Side effects/risks/benefits of medication were reviewed. An OARRS report was printed and reviewed, no discrepancies noted. Frequent appointments needed due to addiction potential of medication. Pain inventory sheet completed and reviewed if opiod medication given. Pain contract is on file if pertinent. Patient will have office visits every three months for evaluation or sooner if needed. I discussed addiction potential of medication with the patient. Discussed with the patient and provided a treatment plan including the use of non-opiod analgesics and non-pharmacological intervention with patient if treated for pain. We have discussed realistic benefits and known risks of opiod/controlled therapy and the expected benefits for both pain and function. These benefits outweigh the risks. Patient has been counselled on the dangers of combining opiods/controlled prescriptions with alcohol or other sedatives and counseled on the safe storage and disposal of opiods/controlled prescriptions. Do not drive or operate heavy machinery after taking opiod/controlled medication. I have verified that no current substance abuse treatments are being prescribed. January,ervical pain (ICD-10 - M54.2)She does have a history of neck pain. She admits that she has some discomfort in her neck on the left side that she feels could be contributing to the left arm pain. January,Weight gain (ICD-10 - R63.5)She is not taking Adipex at this time. She is concerned about her weight because she is not on the Adipex. I do not recommend she take the Adipex at this time and she agrees. She is going to take Wellbutrin and see if this will help with weight loss. January,History of smoking (ICD-10 - Z87.898)She smoked in the past for twenty years. I will order a chest xray to rule out abnormalities. She can call for results. January,OtherShe voices that her left eye feels tight, her eye feels like it wants to twitch but it does not. She can raise her eyebrows and squint them and puff out her cheeks. She thinks it is related to the left side. No sign of anything abnormal on exam. Eye movement is excellent. [facility] Other 04-03-2023 Evaluation note* Encounter Date Diagnosis Assessment Notes Treatment Notes Treatment Clinical Notes Dec, Lumbar pain (ICD-10 - M54.50) She saw Dr. Warner for evaluation and was supposed to be referred to pain management for evaluation. She voices that the neurologist did that and they did not do anything for her. She was advised that you should get an injection from pain management instead of a neurologist. She voices that it was left up to her as to whether or not she wanted to proceed. She has a high deductible plan. She is trying to exercise now that she is on Adipex, she is doing work out videos on [employer], walking in place or aerobics and her mobility is not good because of the back pain. Dr. Warner recommended she only do water exercises. Dec,Sacro-iliac pain (ICD-10 - M53.3)She has not done PT for the SI joint yet. Exercises that she can do with bands were discussed today. She can do a couple sets of 10 of these each day for a week and then let me know if these have helped or not. Dec,Weight gain (ICD-10 - R63.5)On her home scale she has lost 5 pounds since last seen. She would like to continue with the medication. I did recommend that she continue with the lifestyle and dietary changes that she has made to [facility] keep the weight she has lost off. I did explain to her that I would expect her to lose 1-2 pounds per week so she should only be losing 4-8 pounds per month, she is doing well. I encouraged her to continue with what she is doing as it is working well. If she is able to get her SI pain under control she may be able to be more active. I did recommend that she avoid exercising for more than 30-40 minutes. Thirty minutes is minimum for cardiac benefit but do not go over 45 minutes. Overdoing exercise can place stress on the body producing cortisol which can cause weight gain. She should research low heart rate training. Dec,nxiety disorder, unspecified (ICD-10 - F41.9)She is no longer on the Effexor. Dec,onstipation (ICD-10 - K59.00)I did advise her that she can take Colace along with the Adipex to keep her bowels moving. [facility] Other 02-20-2023 Evaluation note* Encounter Date Diagnosis Assessment Notes Treatment Notes Treatment Clinical Notes Oct, Sacro-iliac pain (ICD-10 - M53.3 ) [facility] Other 02-06-2023 Evaluation note* Encounter Date Diagnosis Assessment Notes Treatment Notes Treatment Clinical Notes Oct, Cystitis (ICD-10 - N30.90) [facility]ULATIONS: All Positive and Important Negative Findings Shall Be Recorded Date of Consultation: 09/11/2022 Attending Physician: Varun Glass D.O. Consulting Physician: Michelle Clancy M.D. CHIEF COMPLAINT: Left-sided low back and leg pain. HISTORY OF PRESENT ILLNESS: This is a 47 year old female seen for a chief complaint of left-sided low back and leg pain. She rates her symptoms as a 6- 7/10. She describes it as an aching burning sensation that starts in the left side of her lower back and radiates down the front of the left thigh. She reports this has been going on over six months with no obvious cause. She followed with a neurologist and they have tried. She has had a magnetic resonance imaging and an electromyogram. She has done anti-inflammatories which have been ineffective. She had a facet injection which was ineffective. She has not had any epidural injections. She reports the pain is constant but worse with standing and walking. It interrupts her function during the day and also her sleep at night. She denies any significant right-sided pain. She denies additional neurologic symptoms or issues with bladder or bowel control. PAST MEDICAL, PSYCHOSOCIAL, FAMILY HISTORY, ALONG WITH MEDICATIONS AND ALLERGIES is available and was reviewed. REVIEW OF SYSTEMS: Done on ten systems. PHYSICAL EXAMINATION: General: She is a pleasant white female. Vital signs: Vital signs including blood pressure, heart rate and respirations are stable. Head: Head is normocephalic and external ears are normal. Neck: Neck is supple with no lesions. Cardiovascular: No signs of poor perfusion. No peripheral edema. Lungs: Breathing is unlabored. There is no wheezing present. Abdomen: Abdomen is soft and non-distended. Back: There is some left-sided lower lumbar and sacroiliac tenderness. Musculoskeletal: Strength is 5/5. Muscle tone is normal. She has a positive straight leg raise on the left side. Neurologic: Sensation is intact throughout. Her reflexes are normal and symmetric. Psychiatric: Affect is appropriate and she is alert and oriented. ASSESSMENT: This is a 47 year old female seen for a chief complaint of left- sided low back and leg pain. Her signs and symptoms are consistent with lumbosacral radiculopathy and lumbosacral spondylosis. I reviewed her magnetic resonance imaging report which is notable for some edema over the left L4-5 facet joint. I also reviewed an [place] [employer] report on which is benign. Given her radicular symptoms that would fit the L4 nerve root I wonder if she may not have apars fracture there. PLAN: I addressed options with her and we will try her on gabapentin to be titrated to 300 mg threetimes a day and I will also write her for some physical therapy. We will check a flexion extension x-ray of her lumbar spine to evaluate for stability and I will also get a hold of the magnetic resonance imaging myself for review. After I do review the magnetic resonance imaging we will most likelyproceed with a left L4 transforaminal epidural steroid injection. I went over the pros and cons of this plan and she was in agreement to proceed. I will see her for follow up four weeks afterward fora repeat evaluation. Over 45 minutes was spent caring for the patient in total. Bryce Griffith Dictated: 09/11/2022 [id number] Transcribed: 09/12/2022 cc:Varun Glass D.O.[facility] Main CampusComment on above:Result Comment: Electronically Signed By: Noy Clancy MDchary\.dwain\Date and Time Signed: 09/13/22 20:23 [id number] Evaluation note* Encounter Date Diagnosis Assessment Notes Treatment Notes Treatment Clinical Notes Jul, Anxiety (ICD-10 - F41.9) [facility] Other 11-07-2022 Evaluation note* Encounter Date Diagnosis Assessment Notes Treatment Notes Treatment Clinical Notes Jul, Lumbar pain (ICD-10 - M54.50) When she stands she has pressure in her low back and hips. She has pain in the front of her left leg. Worse when standing. Exercising aggravates the back/leg which has caused her to gain weight whichfrustrates her. An MRI was done, but she has not reviewed this with Marce mancini NAIL MAKING MACHINE TENDER at [facility] yet. I did independently review her lumbar spine x-ray results with her today. Results showed that degenerative changes were noted with only mild bilateral neural foraminal narrowing at the L3-L4 level. No significant spinal canal stenosis is noted. Mild faced edema is noted on the left at L4-5. She voices that the neurologist did recommend that she have injections done. I do feel she would b enefit from facet injections in her back. She voices that she is scheduled for these injections next week (08-12-22) and I anticipate that these will provide her with relief. I am going to provide her with a refill on Ibuprofen but asked her to avoid taking this for the next week leading up to her injection. Jul,Eustachian tube dysfunction (ICD-10 - H69.80)She voices that her left ear seems to be plugged, it always seems to be the left more than the right . She has had several scans of her brain and has seen Dr. Scott several times and nothing abnormalhas been found. Nothing abnormal was seen on exam of her left ear today. Jul,nxiety (ICD-10 - F41.9)Her dose of Effexor was doubled to 75 MG daily by Marce NAIL MAKING MACHINE TENDER from [facility]. She has been taking the Xanax at night to help her sleep for the last week. An OARRS report was reviewed no discrepancies noted. Frequent appointments needed due to addiction potential of medication. She does continue to use and benefit from the Xanax. I will need to see her back in one month but she can call for refills in between refills. Side effects/risks/benefits of medication were reviewed. I did explainto her that the increased dose of Effexor does help with pain. Jul,onstipation (ICD-10 - K59.00)She is having a colonoscopy done in Aug (2021). Jul,Weight gain (ICD-10 - R63.5)She voices that she has not been able to exercise because of her back and this has caused her to gain weight, she is very frusturated by this. Jul,therShe voices that she has pressure in the left side of her nose that travels under her left eye and cheek/face. When this happens she worries she may be having a stroke. She is going to continue to monitor these symptoms. ER sooner if needed or concerns. [facility] Other 10-05-2022 Evaluation note* Encounter Date Diagnosis Assessment Notes Treatment Notes Treatment Clinical Notes Jun, Constipation (ICD-10 - K59.00) START MIRALAX-MAY ADJUST DOSE NEEDED Jun,Mucus in stool (ICD-10 - R19.5) [facility] Other 06-03-2022 Evaluation note* Encounter Date Diagnosis Assessment Notes Treatment Notes Treatment Clinical Notes Feb, Anxiety disorder, unspecified (I CD-10 - F41.9) [facility] Other 06-03-2022 Evaluation note* Encounter Date Diagnosis Assessment Notes Treatment Notes Treatment Clinical Notes Feb, Hypercholesterolemia (ICD-10 - E 78.00) [facility] Other 05-23-2022 Evaluation note* Encounter Date Diagnosis Assessment Notes Treatment Notes Treatment Clinical Notes January, Cervical pain (ICD-10 - M54.2) [facility] Other 05-20-2022 Evaluation note* Encounter Date Diagnosis Assessment Notes Treatment Notes Treatment Clinical Notes January, Lumbar pain (ICD-10 - M54.50) We discussed that the tingling in her toes is likely coming from her back. Her pain is in her low back on both sides. To relieve it she would like to stretch but it does not go away. Her left leg aches and both feet/toes will tingle and the bottom of her feet will ache/tingle, but more the left side will bother her. I will provide her with an order to have an x-ray of her back. She can call for results. She does not have classic herniated disc symptoms. She voices that she is told that her posture is poor which can contribute to her back pain. January,aresthesia (ICD-10 - R20.2)Tingling on both feet noted on exam. January,Irritable bowel syndrome (ICD-10 - K58.9)She did have a colonoscopy in the past but does not recall when she was to have another one. She voices that she always has an issue with constipation and does see mucous in her stools at times. We discussed this today. She has normal bowel movements, denies any change with her bowels. January,Mucous in stools (ICD-10 - R19.5)She voices that she has seen mucous in her stools but only when she has hard stools. She has a history of IBS. I did explain to her that this can occur with IBS. Any inflammatory bowel disease shouldhave been found on her colonoscopy. She denies blood and black stools. She has always had issues with constipation. January,nxiety (ICD-10 - F41.9)She voices that after discussing her back pain with a coworker her phone began to display reasons why you would have back pain and some of the reasons were cancer such as ovarian cancer which has caused her to be anxious and worried. She was tearful during the check in process today because of her concerns. She voices that the neurologist wanted to switch her from Prozac to Effexor thinking it would help with her neck issues and her anxiety. She did stop the Prozac until she could make the switch. She then saw Dr. Moore for evaluation, and he placed her on Qsymia, and she then found out sheshould not be on Qsymia and Effexor together. She then became worried, so she did not star the Effexor and is now not on anything. We discussed that Qsymia does raise serotonin level. Serotonin syndrome was discussed. I suspect she would not need the Effexor while she is on Qsymia. She agrees with this and it is safer for her not to be on anything additional. If she did want to be on the medication she could but on the Effexor at a low dose and used cautiously. January,Weight gain (ICD-10 - R63.5)She saw Dr. Moore for evaluation but her insurance would not pay for the injection weight loss medication. She was started on Qsymia but she is not seeing a lot of weight loss with this. She discussed the Qsymia and Effexor together with a cousin who is a pharmacist and was told that she should not be on those two medications at the same time. I did advise her that Qsymia works well but she will see slow weight loss. She voices that she had gained 15 pounds without explanation, I explained toher that her body will always want to get back to its highest weight plus some. She has lost 7 pounds in 6 weeks on the Qsymia and is stuck now. She should not give up and instead continue with themedication, watch her intake of carbs and sugars. Stay active. She voices that she will continue with the medication for now and see how she does but admits the medication is costly ($100 dollars permonth) so if it does not begin to work she is unsure how long she will continue with it. She was due to see the assessor but had to cancel because she became ill and has not rescheduled. January,therShe voices that she was concerned about ovarian cancer, she did discuss this with her CHIEF WARDEN at heryearly visit last year and specifically asked him if he was concerned about her having ovarian cancer and he told her no. I did advise her that I can order a pelvic ultrasound or a CEA test but I don't know if her insurance will cover this, but either of these tests may ease her mind. She voices that she will think about these things and if she wants either of these things ordered she will call for orders. She has an appointment to see Dr. Clinton this summer. [facility] Other 03-23-2022 Evaluation note* Encounter Date Diagnosis Assessment Notes Treatment Notes Treatment Clinical Notes Nov, Abnormal weight gain (ICD-10 - R 63.5) Nov,GERD (gastroesophageal reflux disease) (ICD-10 - K21.9) Nov,Hypercholesterolemia (ICD-10 - E78.00) Nov,epression with anxiety (ICD-10 - F41.8) [facility] Other 03-02-2022 Hospital Discharge instructions Patient Education 11/27/2021 10:41:14 Calorie Counting for Weight Loss Calorie Counting for Weight Loss Calories are units of energy. Your body needs a certain amount of calories from food to keep you going throughout the day. When you eat more calories than your body needs, your body stores the extra calories as fat. When you eat fewer calories than your body needs, your body whaley fat to get the energy it needs. Calorie counting means keeping track of how many calories you eat and drink each day. Calorie counting can be helpful if you need to lose weight. If you make sure to eat fewer calories than your bodyneeds, you should lose weight. Ask your health care provider what a healthy weight is for you. For calorie counting to work, you will need to eat the right number of calories in a day in order to lose a healthy amount of weight per week. A dietitian can help you determine how many calories youneed in a day and will give you suggestions on how to reach your calorie goal. A healthy amount of weight to lose per week is usually 1 2 lb (0.5 0.9 kg). This usually means thatyour daily calorie intake should be reduced by 500 750 calories. Eating 1,200 1,500 calories per day can help most women lose weight. Eating 1,500 1,800 calories per day can help most men lose weight. What is my plan? My goal is to have calories per day. If I have this many calories per day, I should lose around pounds per week. What do I need to know about calorie counting? In order to meet your daily calorie goal, you will need to: Find out how many calories are in each food you would like to eat. Try to do this before you eat. Decide how much of the food you plan to eat. Write down what you ate and how many calories it had. Doing this is called keeping a food log. To successfully lose weight, it is important to balance calorie counting with a healthy lifestyle that includes regular activity. Aim for 150 minutes of moderate exercise (such as walking) or 75 minutes of vigorous exercise (such as running) each week. Where do I find calorie information? The number of calories in a food can be found on a Nutrition Facts label. If a food does not have aNutrition Facts label, try to look up the calories online or ask your dietitian for help. Remember that calories are listed per serving. If you choose to have more than one serving of a food, you will have to multiply the calories per serving by the amount of servings you plan to eat. Forexample, the label on a package of bread might say that a serving size is 1 slice and that there are 90 calories in a serving. If you eat 1 slice, you will have eaten 90 calories. If you eat 2 slices, you will have eaten 180 calories. How do I keep a food log? Immediately after each meal, record the following information in your food log: What you ate. Don't forget to include toppings, sauces, and other extras on the food. How much you ate. This can be measured in cups, ounces, or number of items. How many calories each food and drink had. The total number of calories in the meal. Keep your food log near you, such as in a small notebook in your pocket, or use a mobile sandra or website. Some programs will calculate calories for you and show you how many calories you have left forthe day to meet your goal. What are some calorie counting tips? Use your calories on foods and drinks that will fill you up and not leave you hungry: ?Some examples of foods that fill you up are nuts and nut butters, vegetables, lean proteins, and high-fiber foods like whole grains. High-fiber foods are foods with more than 5 g fiber per serving. ?Drinks such as sodas, specialty coffee drinks, alcohol, and juices have a lot of calories, yet do not fill you up. Eat nutritious foods and avoid empty calories. Empty calories are calories you get from foods or beverages that do not have many vitamins or protein, such as candy, sweets, and soda. It is better to have a nutritious high-calorie food (such as an avocado) than a food with few nutrients (such as a bag of chips). Know how many calories are in the foods you eat most often. This will help you calculate calorie counts faster. Pay attention to calories in drinks. Low-calorie drinks include water and unsweetened drinks. Pay attention to nutrition labels for low fat or fat free foods. These foods sometimes have thesame amount of calories or more calories than the full fat versions. They also often have added sugar, starch, or salt, to make up for flavor that was removed with the fat. Find a way of tracking calories that works for you. Get creative. Try different apps or programs ifwriting down calories does not work for you. What are some portion control tips? Know how many calories are in a serving. This will help you know how many servings of a certain food you can have. Use a measuring cup to measure serving sizes. You could also try weighing out portions on a kitchenscale. With time, you will be able to estimate serving sizes for some foods. Take some time to put servings of different foods on your favorite plates, bowls, and cups so you know what a serving looks like. Try not to eat straight from a bag or box. Doing this can lead to overeating. Put the amount you would like to eat in a cup or on a plate to make sure you are eating the right portion. Use smaller plates, glasses, and bowls to prevent overeating. Try not to multitask (for example, watch TV or use your computer) while eating. If it is time to eat, sit down at a table and enjoy your food. This will help you to know when you are full. It will also help you to be aware of what you are eating and how much you are eating. What are tips for following this plan? Reading food labels Check the calorie count compared to the serving size. The serving size may be smaller than what youare used to eating. Check the source of the calories. Make sure the food you are eating is high in vitamins and proteinand low in saturated and trans fats. Shopping Read nutrition labels while you shop. This will help you make healthy decisions before you decide to purchase your food. Make a grocery list and stick to it. Cooking Try to cook your favorite foods in a healthier way. For example, try baking instead of frying. Use low-fat dairy products. Meal planning Use more fruits and vegetables. Half of your plate should be fruits and vegetables. Include lean proteins like poultry and fish. How do I count calories when eating out? Ask for smaller portion sizes. Consider sharing an entree and sides instead of getting your own entree. If you get your own entree, eat only half. Ask for a box at the beginning of your meal and put the rest of your entree in it so you are not tempted to eat it. If calories are listed on the menu, choose the lower calorie options. Choose dishes that include vegetables, fruits, whole grains, low-fat dairy products, and lean protein. Choose items that are boiled, broiled, grilled, or steamed. Stay away from items that are buttered,battered, fried, or served with cream sauce. Items labeled crispy are usually fried, unless stated otherwise. Choose water, low-fat milk, unsweetened iced tea, or other drinks without added sugar. If you want an alcoholic beverage, choose a lower calorie option such as a glass of wine or light beer. Ask for dressings, sauces, and syrups on the side. These are usually high in calories, so you should limit the amount you eat. If you want a salad, choose a garden salad and ask for grilled meats. Avoid extra toppings like villalba, cheese, or fried items. Ask for the dressing on the side, or ask for olive oil and vinegar or lemon to use as dressing. Estimate how many servings of a food you are given. For example, a serving of cooked rice is cup orabout the size of half a baseball. Knowing serving sizes will help you be aware of how much food you are eating at restaurants. The list below tells you how big or small some common portion sizes arebased on everyday objects: ?1 oz 4 stacked dice. ?3 oz 1 deck of cards. ?1 tsp 1 . ?1 Tbsp a ping-pong ball. ?2 Tbsp 1 ping-pong ball. ? cup baseball. ?1 cup 1 baseball. Summary Calorie counting means keeping track of how many calories you eat and drink each day. If you eat fewer calories than your body needs, you should lose weight. A healthy amount of weight to lose per week is usually 1 2 lb (0.5 0.9 kg). This usually means reducing your daily calorie intake by 500 750 calories. The number of calories in a food can be found on a Nutrition Facts label. If a food does not have aNutrition Facts label, try to look up the calories online or ask your dietitian for help. Use your calories on foods and drinks that will fill you up, and not on foods and drinks that will leave you hungry. Use smaller plates, glasses, and bowls to prevent overeating. This information is not intended to replace advice given to you by your health care provider. Make sure you discuss any questions you have with your health care provider. Document Released: 09/14/2006 Document Revised: 06/03/2019 Document Reviewed: 08/14/2017 [employer] Patient Education 2020 [employer]. 11/27/2021 10:33:28 Overactive Bladder, Adult Overactive Bladder, Adult Overactive bladder refers to a condition in which a person has a sudden need to pass urine. The person may leak urine if he or she cannot get to the bathroom fast enough (urinary incontinence). A person with this condition may also wake up several times in the night to go to the bathroom. Overactive bladder is associated with poor nerve signals between your bladder and your brain. Your bladder may get the signal to empty before it is full. You may also have very sensitive muscles thatmake your bladder squeeze too soon. These symptoms might interfere with daily work or social activities. What are the causes? This condition may be associated with or caused by: Urinary tract infection. Infection of nearby tissues, such as the prostate. Prostate enlargement. Surgery on the uterus or urethra. Bladder stones, inflammation, or tumors. Drinking too much caffeine or alcohol. Certain medicines, especially medicines that get rid of extra fluid in the body (diuretics). Muscle or nerve weakness, especially from: ?A spinal cord injury. ?Stroke. ?Multiple sclerosis. ?Parkinson's disease. Diabetes. Constipation. What increases the risk? You may be at greater risk for overactive bladder if you: Are an older adult. Smoke. Are going through menopause. Have prostate problems. Have a neurological disease, such as stroke, dementia, Parkinson's disease, or multiple sclerosis (MS). Eat or drink things that irritate the bladder. These include alcohol, spicy food, and caffeine. Are overweight or obese. What are the signs or symptoms? Symptoms of this condition include: Sudden, strong urge to urinate. Leaking urine. Urinating 8 or more times a day. Waking up to urinate 2 or more times a night. How is this diagnosed? Your health care provider may suspect overactive bladder based on your symptoms. He or she will diagnose this condition by: A physical exam and medical history. Blood or urine tests. You might need bladder or urine tests to help determine what is causing your overactive bladder. You might also need to see a health care provider who specializes in urinary tract problems (urologist). How is this treated? Treatment for overactive bladder depends on the cause of your condition and whether it is mild or severe. You can also make lifestyle changes at home. Options include: Bladder training. This may include: ?Learning to control the urge to urinate by following a schedule that directs you to urinate at regular intervals (timed voiding). ?Doing Kegel exercises to strengthen your pelvic floor muscles, which support your bladder. Toning these muscles can help you control urination, even if your bladder muscles are overactive. Special devices. This may include: ?Biofeedback, which uses sensors to help you become aware of your body's signals. ?Electrical stimulation, which uses electrodes placed inside the body (implanted) or outside the body. These electrodes send gentle pulses of electricity to strengthen the nerves or muscles that control the bladder. ?Women may use a plastic device that fits into the vagina and supports the bladder (pessary). Medicines. ?Antibiotics to treat bladder infection. ?Antispasmodics to stop the bladder from releasing urine at the wrong time. ?Tricyclic antidepressants to relax bladder muscles. ?Injections of botulinum toxin type A directly into the bladder tissue to relax bladder muscles. Lifestyle changes. This may include: ?Weight loss. Talk to your health care provider about weight loss methods that would work best for you. ?Diet changes. This may include reducing how much alcohol and caffeine you consume, or drinking fluids at different times of the day. ?Not smoking. Do not use any products that contain nicotine or tobacco, such as cigarettes and e-cigarettes. If you need help quitting, ask your health care provider. Surgery. ?A device may be implanted to help manage the nerve signals that control urination. ?An electrode may be implanted to stimulate electrical signals in the bladder. ?A procedure may be done to change the shape of the bladder. This is done only in very severe cases. Follow these instructions at home: Lifestyle Make any diet or lifestyle changes that are recommended by your health care provider. These may include: ?Drinking less fluid or drinking fluids at different times of the day. ?Cutting down on caffeine or alcohol. ?Doing Kegel exercises. ?Losing weight if needed. ?Eating a healthy and balanced diet to prevent constipation. This may include: ?Eating foods that are high in fiber, such as fresh fruits and vegetables, whole grains, and beans. ?Limiting foods that are high in fat and processed sugars, such as fried and sweet foods. General instructions Take [id number] and prescription medicines only as told by your health care provider. If you were prescribed an antibiotic medicine, take it as told by your health care provider. Do notstop taking the antibiotic even if you start to feel better. Use any implants or pessary as told by your health care provider. If needed, wear pads to absorb urine leakage. Keep a journal or log to track how much and when you drink and when you feel the need to urinate. This will help your health care provider monitor your condition. Keep all follow-up visits as told by your health care provider. This is important. Contact a health care provider if: You have a fever. Your symptoms do not get better with treatment. Your pain and discomfort get worse. You have more frequent urges to urinate. Get help right away if: You are not able to control your bladder. Summary Overactive bladder refers to a condition in which a person has a sudden need to pass urine. Several conditions may lead to an overactive bladder. Treatment for overactive bladder depends on the cause and severity of your condition. Follow your health care provider's instructions about lifestyle changes, doing Kegel exercises, keeping a journal, and taking medicines. This information is not intended to replace advice given to you by your health care provider. Make sure you discuss any questions you have with your health care provider. Document Released: 07/11/2010 Document Revised: 01/05/2020 Document Reviewed: 09/30/2018 [employer] Patient Education 2020 [employer]. Follow Up Care 11/14/2021 11:19:32 With:Jose OAKLEY, Rhonda Phelan, URL, [facility] Address: [phone] When:[facility]28[facility]2021 [facility] Evaluation note* Encounter Date Diagnosis Assessment Notes Treatment Notes Treatment Clinical Notes Jul, COVID-19 (ICD-10 - U07.1) She tested positive for COVID-19 on 08-13-21 and did get the monoclonal antibodies. She voices thatshe feels worse now then when she had COVID-19 because of her sinuses. She has been checking her oxygen level and it has been 98-99% on room air. She will continue to rest and push fluids. Jul,cute sinusitis (ICD-10 - J01.90) She voices that the sinus infection she currently has has made her feel very poorly. She has green and blood tinged mucous and sinus pressure. Will treat her with Augmentin. Guidance is given on how to take the medication. She is encouraged to eat yogurt daily while on ATB to prevent GI upset. Rest, push fluids. She can continue to use the nasal spray daily. I will provide her with an off work note for today and tomorrow (08-26 and 08-27-21) She is to rest and push fluids. Jul,Other2:21 PM - 2:33 PM [facility] Other 11-23-2021 Evaluation note* Encounter Date Diagnosis Assessment Notes Treatment Notes Treatment Clinical Notes Jul, Anxiety (ICD-10 - F41.9) [facility] Other 11-16-2021 Evaluation note* Encounter Date Diagnosis Assessment Notes Treatment Notes Treatment Clinical Notes Jul, Loss of taste (ICD-10 - R43.2) Jul,oss of smell (ICD-10 - R43.0) Jul,Nasal congestion (ICD-10 - R09.81) [facility] Other 10-29-2021 Evaluation note* Encounter Date Diagnosis Assessment Notes Treatment Notes Treatment Clinical Notes Jun, Anxiety (ICD-10 - F41.9) An [facility] report was reviewed, no discrepancies noted. She does continue to use and benefit from theXanax and would like to continue with this. I did provide her with a refill today. She does feel the Prozac is working and is going to continue with the medication. She feels things are going well for her. Side effects/risks/benefits of medication were reviewed. We discussed globus hystericus, if by mid July she feels the dose of Prozac needs to be increased she can call for the higher dose (40 MG). Jun,Globus hystericus (ICD-10 - F45.8) She voices that she always has to clear her throat. She did see an ENT in the past for evaluation. She always feels that she is stuffy. She does feel that this is slightly better with the Prozac. We discussed globus hystericus. She never brings anything up, her nose dose not run she just always feels like something is in her throat. She will feel as if she is getting a cold but is not sick. I explained to her that globus hystericus causes this sensation and until the anxiety is adequately treated she will feel this way. She is currently on Prozac 20 MG, if by july she does not feel this is better she can call and we can discuss increasing the dose to 40 MG daily. Jun,ephalgia (ICD-10 - R51) She only uses the Ibuprofen as needed when her headaches are bad. She would like to have this on hand to use if needed. Jun,inus drainage (ICD-10 - J34.89) Provided her with a refill on above medication today. Jun,Weight gain (ICD-10 - R63.5) She is considering taking an all natural weight loss medication called fos4X to assist with weightloss. I did recommend that she speak with her trusted pharmacist about the ingredients in this herbal supplement and her Prozac for interactions. We discussed that there are newer weight loss medications available now that can be used. If she would like to consider one of these medications she should see Dr. Moore for evaluation at the weight management clinic. She would like to see him for evaluation and a referral is provided. [facility] Other 03-28-2012 History general Narrative - Reported* Type Description Date Medical History Lumbar Spine X-Ray 3-28-12 Medical HistoryLeft Hip X-Ray [id number] HistoryHx of IUD for control, placed 11/2011 will be removed in 2016Surgical HistoryC sectionHospitalization Historychilbirth [facility] Other 03-28-2012 History general Narrative - Reported* Type Description Date Medical History Lumbar Spine X-Ray 12-24-11 Medical HistoryLeft Hip X-Ray 3-68-66Kmnbiyd HistoryHx of IUD for control, placed 11/2011 will be removed in 2016Medical HistoryCOVID positive 07/2021 Surgical HistoryC sectionHospitalization Historychilbirth [facility] Other 03-28-2012 History general Narrative - Reported* Type Description Date Medical History Lumbar Spine X-Ray 12-24-11 Medical HistoryLeft Hip X-Ray 5-72-97Dewvlgd HistoryHx of IUD for control, placed 11/2011 will be removed in 2016Medical HistoryCOVID positive 07/2021 Medical Historychronic depressionMedical HistoryanxietyMedical HistoryPanic attacksSurgical HistoryC sectionH[facility] [place] [facility] Other 03-28-2012 History general Narrative - Reported* Type Description Date Medical History Lumbar Spine X-Ray 12-24-11 Medical HistoryLeft Hip X-Ray [id number] HistoryHx of IUD for control, placed 11/2011 will be removed in 2016Medical HistoryCOVID positive 07/2021 Medical Historychronic depressionMedical HistoryanxietyMedical HistoryPanic attacksSurgical HistoryC sectionHospitalization HistorychilbirthHospitalization Historyfacial and left leg paresthaesias02/26/22 [facility] Other 03-28-2012 History general Narrative - Reported* Type Description Date Medical History Lumbar Spine X-Ray 12-24-11 Medical HistoryLeft Hip X-Ray 7-07-44Egokcng HistoryHx of IUD for control, placed 11/2011 will be removed in 2016Medical HistoryCOVID positive 07/2021 Medical Historychronic depressionMedical HistoryanxietyMedical HistoryPanic attacksMedical Historymigraine headachesSurgical HistoryC sectionSurgical HistoryColonoscopy, Dr. Herman/ repeat in 10 [id number] HistorychilbirthHospitalization Historyfacial and left leg paresthaesias02/26/22 Hospitalization Historysee above surg. hx. Formerly [facility] [employer] Other [id number] History general Narrative - Reported* Type Description Date Medical History Lumbar Spine X-Ray 12-24-11 Medical HistoryLeft Hip X-Ray [id number] HistoryHx of IUD for control, placed 11/2011 will be removed in 2016Medical HistoryCOVID positive 07/2021 Medical Historychronic depressionMedical HistoryanxietyMedical HistoryPanic attacksMedical Historymigraine headachesMedical HistoryFormer Smoker quit in 2010Surgical HistoryC sectionSurgical HistoryColonoscopy, Dr. Herman/ repeat in 10 [id number] HistorychilbirthHospitalization Historyfacial and left leg paresthaesias02/26/22Hospitalization Historysee above surg. hx. Formerly [facility] [employer] Other Evaluation + Plan note Future Appointments Appointment Date:01/10/2022 11:15:00 AM Scheduled Provider:Rhonda Garcia MD Location:[facility] Appointment Type:URO Office Visit [facility] evaluation noteNo InformationNort [facility] Other Evaluation noteNort [facility] Other Evaluation noteNo assessment information available [facility] Work Phone: Evaluation note* Diagnosis Onset Date Resolution Status Abnormal urinalysis acuteAnxietyacuteArm pain, leftacuteChronic painacuteGERD (gastroesophageal reflux disease)acuteHyperglycemiaacuteHyperlipidemiaacuteOther retirement (current) drug therapyacuteSI (sacroiliac) joint dysfunctionacuteWeight gain acute [facility] Work Phone: Evaluation note* Diagnosis Screening mammogram for breast cancer- Primary Encounter for gynecological examination with abnormal finding Encounter for screening mammogram for malignant neoplasm of breast Intrauterine device surveillance Fatigue, unspecified type Weight gain Other symptoms concerning nutrition, metabolism, and development Perimenopause Symptomatic menopausal or female climacteric states documented in this encounter [facility]* Diagnosis Onset Date Resolution Status Anxiety acuteChronic painacuteFatigueacuteParesthesiaacuteWeight gainacute [facility] Work Phone: Evaluation note* Diagnosis Encounter for gynecological examination with abnormal finding- Primary Encounter for screening mammogram for malignant neoplasm of breast Intrauterine device surveillance Irregular intermenstrual bleeding Metrorrhagia documented in this encounter [facility] HealthcareHistory and physical note Author Jose Martin Herman [facility] September 17, 2022 8:45amNote Date/TimeDece2021 8:45[place] [address] Gastroenterology H&P Signed Patient: Araseli Fernandez MR#: [id number] : 1975 Acct:[id number] Age/Sex: 47 / F Adm Date: 2 Loc: Room: Type: [facility] Attending Dr: Jose Martin Herman MD Copies to: MD Varun Hanks DO~ Date of Service: 09/17/2022 HISTORY & PHYSICAL: Patient's history with special attention to the cardiovascular, pulmonary systems and the current problem was reviewed with the patient immediately prior to the procedure. Present medications and doses reviewed in the EMR. Allergies and pertinent laboratory tests were also re viewedat this time in the EMR. The physical examination, as below, was then performed. Indication, assessment and HPI: 47-year-old female presents for screening colonoscopy Family history of GI malignancy? No PHYSICAL EXAMINATION Mouth and Pharynx : Moist mucus membranes, normal dentition Cardiac: Regular rate, regular rhythm Pulmonary: Clear to auscultation bilaterally, no wheezing Neurological: Alert and oriented x3, no focal deficits noted Abdomen: Abdomen soft, non-tender REVIEW OF SYSTEMS Constitutional: Denies malaise, fevers Cardiovascular: Denies chest pain, palpitations Respiratory: Denies shortness of breath, wheezing Gastrointestinal: Per HPI Genitourinary: Denies dysuria, polyuria Musculoskeletal: Denies joint swelling, joint stiffness Neurological: Denies numbness, tingling Integumentary: Denies rashes, skin lesions Endocrine: Denies fatigue, weight loss Written informed consent obtained from the patient. Risks (including but not limited to perforation, infection, bloating, bleeding, need for emergent surgeryand loss of life), benefits and alternatives explained and questions answered. The patient verbalized understanding. Based on history patient is an appropriate candidate for the procedure. Jose Martin Herman MD Documented By: Jose Martin Herman MD 09/17/2244 Signed By: <Electronically signed by Jose Martin Herman MD> 09/17/22 0845 [facility] Work Phone: History general Narrative - ReportedNointelworks Other History general Narrative - ReportedNoParko [facility] Other Hospital course Narrative No data available for this section [facility] Hospital Discharge instructions No data available for this section [facility] Discharge instructions Additional Instructions DISCHARGE INSTRUCTIONS FOR COLONOSCOPY WHAT TO EXPECT: - You may feel full, gassy or cramping after your procedure. In some cases, this may be from a few hours to a day. Walking may help relieve the discomfort. - If you have polyp(s) removed you may note some minor bloody discharge after your first bowel movements. - You should begin to recover from anesthesia within 1 hour of the procedure, however may feel groggy for the next 24 hours. DO's AND DON'Ts: - Call your doctor right away if you have a hard abdomen, severe pain, are passing lots of bright red blood or clots. - Call your doctor if you develop any rashes, hives or difficulty breathing. - Let your doctor know if you have not had a bowel movement by 3 days after your procedure. - If you take 81 mg aspirin for your heart it is safe to resume this medication. - If you take other blood thinner medications your doctor will instruct you when these can safely be resumed. - Do NOT drive for 24 hours. - Do NOT operate machinery such as power tools, lawn mowers, snow blowers, sewing machines, etc. for 24 hours. - Avoid alcoholic beverages and drugs for allergies, nerves, or sleep. - Do NOT stay alone. Do NOT leave your child unattended. - Do NOT make important personal or business decisions or sign any legal documents. - Eat solid foods and drink liquids in smaller amounts than usual until normal appetite returns. If you should experience an upset stomach, liquids high in sugar content (soda, Aden-Aid, non-acid juices) are recommended. - You can resume normal activities tomorrow. FOLLOW UP & RECOMMENDATIONS: - Follow-up with Dr. Herman as needed - Notify the doctor if you have any problems. - Repeat colonoscopy in 10 years. - Follow up with PCP. - Office number [phone].[facility] Work Phone: Progress note No data available for this section [facility] HospitalReason for referral (narrative)No reason for referral information available[facility] [place] Work Phone: Reason for visit NarrativePATIENT HERE AT THE REQUEST OF DR. GLASS FOR EVALUATION & TREATMENT OF CONSTIPATIONAldrich [facility] Other Remxmp for visit Narrativemed refill, multiple issues, see treatment planNomid [facility] Other Summary Purpose Family History Relationship Condition Age at Onset Recorded Date/T erlinda Not Specified Transient ischemic attack Unknown Relationship Condition Age at Onset Recorded Date/T erlinda Not Specified Transient ischemic attack Unknown fatherMalignant neoplasm of lungUnknown Relationship Condition Age at Onset Recorded Date/T erlinda Not Specified Transient ischemic attack Unknown fatherMalignant neoplasm of lungUnknownfatherDiabetes mellitusUnknownMalignant neoplasmUnknownFamily history of lung cancerUnknownDeceasedUnknowngrandparent DeceasedUnknowngrandparentObesityUnknownNot SpecifiedHypertensionUnknown Relationship Condition Age at Onset Recorded Date/T erlinda mother Transient ischemic attack Unknown fatherMalignant neoplasm of lungUnknownfatherDiabetes mellitusUnknownMalignant neoplasmUnknownFamily history of lung cancerUnknownDeceasedUnknowngrandparent DeceasedUnknowngrandparentObesityUnknownmotherHypertensionUnknown Relationship Condition Age at Onset Recorded Date/T erlinda mother Transient ischemic attack Unknown HypertensionUnknownfatherMalignant neoplasm of lungUnknownfatherDiabetes mellitusUnknownMalignant neoplasmUnknownFamily history of lung cancerUnknown DeceasedUnknowngrandparentDeceasedUnknowngrandparentObesityUnknownmother HypertensionUnknown Advance Directives Advance Directive Response Recorded Date/ Time Advance Directives No August 12:40pm Advance Directive Response Recorded Date/ Time Advance Directives No August 11:40am Advance Directive Response Recorded Date/ Time Advance Directives No September 30, 2024 10:24am Advance Directive Response Recorded Date/ Time Advance Directives No September 30, 2024 11:24am Reason for Referral Reason appt pt needs cons ult to discuss weight loss medication Diagnosis 1 Weight gain (R63.5) Referral Organization [facility] Family Medicin e Renu Referring Provider First Name Varun Referring Provider Last Name Quan Referring Provider Specialty Family Prac paddy Referred Organization [facility] Referred Provider Ector Moore Jr. Referred Address [address] [place] [address],[address],[place], [place],[address] Referred Provider Specialty Internal Med icine Referral Priority Routine General Notes Lisa Lala 07/26/2021 01:47:39 PM > [facility] form faxed. pt understands she will be contacted to schedule this appt. Chief Complaint and Reason for Visit Chief Complaint m47.816 Chief Complaint m47.816 Constipation, Mucus in Stool Chief Complaint Constipation, Mucus in Stool See order Chief Complaint Screening See order Chief Complaint Med Refill Med Refill Adipex Screening Chief Complaint n30.90 z79.899 e78.5 r73.9 r63.5 med refillReason for VisitAbnormal urinalysis Anxiety Arm pain, left Chronic pain GERD (gastroesophageal reflux disease) Hyperglycemia Hyperlipidemia Other retirement (current) drug therapy SI (sacroiliac) joint dysfunction Weight gain Chief Complaint med refill Reason for Visit Anxiety Chronic pain Fatigue Paresthesia Weight gain Chief Complaint Admit Date med refill July 08, 2024 1 2:20pm med refill Semaglutide August 08 4:16pm Reason for Visit Admit Date Anxiety July 08, 2024 1 2:20pm Chronic pain July 08, 2024 1 2:20pm Fatigue July 08, 2024 1 2:20pm Paresthesia July 08, 2024 1 2:20pm Weight gain July 08, 2024 1 2:20pm Chief Complaint Admit Date med refill July 08, 2024 1 2:20pm med refill Semaglutide August 08 4:16pm LBP August 15, 2024 4:36pm Screening August 16, 2024 7:07am Reason for Visit Admit Date Anxiety July 08, 2024 1 2:20pm Chronic pain July 08, 2024 1 2:20pm Fatigue July 08, 2024 1 2:20pm Paresthesia July 08, 2024 1 2:20pm Weight gain July 08, 2024 1 2:20pm Anxiety August 08, 2024 4:16pm Left leg paresthesias August 08 4:16pm Lumbar pain August 08, 2024 4:16pm Strain of left trapezius muscle August 08, 2024 4:16pm Obesity due to excess calories August 08, 2024 4:16pm Chief Complaint Admit Date med refill July 08, 2024 1 2:20pm med refill Semaglutide August 08 4:16pm Screening August 16, 2024 7:07am med refill Semaglutide September 02 10:18am LBP September 23, 2024 9:15am telphone/med refill Semaglutide September 30, 2024 9:56am Reason for Visit Admit Date Anxiety July 08, 2024 1 2:20pm Chronic pain July 08, 2024 1 2:20pm Fatigue July 08, 2024 1 2:20pm Paresthesia July 08, 2024 1 2:20pm Weight gain July 08, 2024 1 2:20pm Anxiety August 08, 2024 4:16pm Left leg paresthesias August 08 4:16pm Lumbar pain August 08, 2024 4:16pm Strain of left trapezius muscle August 08, 2024 4:16pm Obesity due to excess calories August 08, 2024 4:16pm Cervical pain September 02, 2024 1 0:18am Constipation September 02, 2024 1 0:18am SI (sacroiliac) joint dysfunction Decemb er 2023 10:18am Weight gain September 02, 2024 1 0:18am Acute sinusitis September 30, 2024 9: 56am Anxiety September 30, 2024 9: 56am Breathing difficulty September 30, 2024 9 :56am Chest pain September 30, 2024 9: 56am Weight gain September 30, 2024 9: 56am Chief Complaint Admit Date Screening August 16, 2024 7:07am med refill Semaglutide September 02 10:18am LBP September 23, 2024 9:15am telphone/med refill Semaglutide September 30, 2024 9:56am discuss multiple issues November 07 4:39pm Reason for Visit Admit Date Cervical pain September 02, 2024 1 0:18am Constipation September 02, 2024 1 0:18am SI (sacroiliac) joint dysfunction Decemb er 2023 10:18am Weight gain September 02, 2024 1 0:18am Acute sinusitis September 30, 2024 9: 56am Anxiety September 30, 2024 9: 56am Breathing difficulty September 30, 2024 9 :56am Chest pain September 30, 2024 9: 56am Weight gain September 30, 2024 9: 56am Anxiety November 07, 2024 4:39pm Breathing difficulty November 07, 2024 4:39pm Cervical pain November 07, 2024 4:39pm Chest pain November 07, 2024 4:39pm Fatigue November 07, 2024 4:39pm GERD (gastroesophageal reflux disease) F ebruary 2024 4:39pm Lumbar pain November 07, 2024 4:39pm Thoracic back pain November 07, 2024 4:39pm Weight gain November 07, 2024 4:39pm Chief Complaint Admit Date med refill Semaglutide September 02 10:18am LBP September 23, 2024 9:15am telphone/med refill Semaglutide September 30, 2024 9:56am discuss multiple issues November 07 4:39pm Screening November 18, 2024 9:54am Chief Complaint Admit Date REFF BY DR. VARUN GLASS December 05 3:50pm med refill January 11, 2025 9:4 6am n92.6 r53.83 March 01, 2025 6:46a m Reason for Visit Admit Date Arthritis of lumbosacral spine November 3:50pm Cervical spondylosis December 05, 2024 3: 50pm Other chronic pain December 05, 2024 3:5 0pm Sacroiliitis December 05, 2024 3:5 0pm Anxiety January 11, 2025 9:4 6am Fatigue January 11, 2025 9:4 6am Irregular periods January 11, 2025 9:4 6am Other obesity due to excess calories Apr 2024 9:46am Sacroiliitis January 11, 2025 9:4 6am Weight gain January 11, 2025 9:4 6am Chief Complaint Admit Date n92.6 r53.83 March 01, 2025 6:46a m review labs/med refill May 01, 2025 10:26am Reason for Visit Admit Date Anxiety May 01, 2025 10: 26am Cervical spondylosis May 01, 2025 10 :26am Hyperglycemia May 01, 2025 10: 26am Hyperlipidemia May 01, 2025 10: 26am Hypocalcemia May 01, 2025 10: 26am Irregular periods May 01, 2025 10: 26am Other obesity due to excess calories Apr 10:26am Chief Complaint Admit Date review labs/med refill May 01, 2025 10:26am sinus infection June 12, 2025 10:27am Reason for Visit Admit Date Anxiety May 01, 2025 10: 26am Cervical spondylosis May 01, 2025 10 :26am Hyperglycemia May 01, 2025 10: 26am Hyperlipidemia May 01, 2025 10: 26am Hypocalcemia May 01, 2025 10: 26am Irregular periods May 01, 2025 10: 26am Other obesity due to excess calories Apr 10:26am Acute sinusitis June 12, 2025 10:27am Cold sore June 12, 2025 10:27am Chief Complaint Admit Date sinus infection June 12, 2025 10:27am med refill August 04, 2025 1 1:14am Reason for Visit Admit Date Acute sinusitis June 12, 2025 10:27am Cold sore June 12, 2025 10:27am Acute sinusitis August 04, 2025 1 1:14am Anxiety August 04, 2025 1 1:14am Other obesity due to excess calories Nov emb2024 11:14am Additional Source Comments INFORMATION SOURCE (unrecogn ized section and content) DATE CREATED AUTHOR 08/18/2021 [facility] DATE CREATED AUTHOR AUTHOR'S ORGANIZ ATION 09/17/2022 [facility] DATE CREATED AUTHOR AUTHOR'S ORGANIZ ATION 09/18/2022 [facility] DATE CREATED AUTHOR AUTHOR'S ORGANIZ ATION 09/13/2023 [facility] DATE CREATED AUTHOR AUTHOR'S ORGANIZ ATION 03/03/2025 [facility] DATE CREATED AUTHOR AUTHOR'S ORGANIZ ATION 07/09/2025 [facility] EPIC REASON FOR VISIT (unrecogniz ed section and content) ReasonCommentsGynecologic ExamYearly, Pt denies Breast pain ,urinary, bowel or transit operations supervisor issues. LMP: 06/13/2024 Last Pap: 06/12/2023t would like to discuss her weight gain and her overall fatigue and joint pain.ReasonCommentsGynecologic ExamPt presents for yearly. Denies breast,bowel, bladder,transit operations supervisor problems. Menses are becoming irregular. Care Teams (unrecognized sec tion and content) Team Status: Inactive Member Role Status Dates Varun Glass DO Primary Care Provider, Attending Pro salma Active Team Status: Inactive Member Role Status Dates Varun Glass DO Primary Care Provider Active Yi Hanks ProviderActive Team Status: Active Member Role Status Dates Varun Glass DO Primary Care Provider Active Team Status: Inactive Member Role Status Dates Varun Glass DO Primary Care Provider Active Marjorie Griffin ProviderActive Team Status: Inactive Member Role Status Dates Varun Glass DO Primary Care Provider Active Ismael Starr ProviderActive Team Status: Inactive Member Role Status Dates Varun Glass DO Attending Provider Active Star t: September 04, 2023 End: September 04, 2023 Team Status: Inactive Member Role Status Dates Varun Glass DO Attending Provider Active Star t: October 05, 2023 End: October 05, 2023 Team Status: Inactive Member Role Status Bhargavi Glass DO Primary Care Provider Active S tart: November 06, 2023 End: November 06eferral SelfAttending ProviderActiveStart: November 06, 2023 End: November 06, 2023 Team Status: Inactive Member Role Status Bhargavi Glass DO Primary Care Provide r, Attending Provider, Referring Provider Active Start: January 27, 2024 End: January 27, 2024 Team Status: Active Member Role Status Bhargavi Glass DO Primary Care Provide r, Attending Provider Active Start: January 30, 2024 Team Status: Inactive Member Role Status Bhargavi Glass DO Primary Care Provide r, Attending Provider Active Start: February 01, 2024 End: February 01, 2024Team MemberRelationshipSpecialtyStart DateEnd Date Varun Glass MD [address] [place] [address] [facility] Ykwmyxrg73[facility] Team Status: Inactive Member Role Status Bhargavi Glass DO Primary Care Provide r, Attending Provider Active Start: July 08, 2024 End: July 08, 2024 Team Status: Inactive Member Role Status Bhargavi Glass DO Primary Care Provide r, Attending Provider Active Start: August 08, 2024 End: August 08, 2024 Team Status: Active Member Role Status Bhargavi Glass DO Primary Care Provide r, Attending Provider Active Start: August 15, 2024 Team Status: Inactive Member Role Status Bhargavi Glass DO Primary Care Provider Active S tart: August 16, 2024 End: August 16, 2024Outreach CommunityAttending ProviderActiveStart: August 16, 2024 End: August 16, 2024 Team Status: Inactive Member Role Status Bhargavi Glass DO Primary Care Provide r, Attending Provider Active Start: September 02, 2024 End: September 02, 2024 Team Status: Inactive Member Role Status Bhargavi Glass DO Primary Care Provide r, Attending Provider Active Start: September 23, 2024 End: September 23, 2024 Team Status: Inactive Member Role Status Bhargavi Glass DO Primary Care Provide r, Attending Provider Active Start: September 30, 2024 End: September 30, 2024 Team Status: Inactive Member Role Status Bhargavi Glass DO Primary Care Provide r, Attending Provider Active Start: November 07, 2024 End: November 07, 2024 Team Status: Inactive Member Role Status Bhargavi Glass DO Primary Care Provider Active S tart: November 18, 2024 End: November 18, 2024Referral SelfAttending ProviderActiveStart: November 18, 2024 End: November 18, 2024 Team Status: Inactive Member Role Status Bhargavi Glass DO Primary Care Provide r, Referring Provider Active Start: December 05, 2024 End: December 05, 2024Shyrn Hopper , MDAttending ProviderActiveStart: December 05, 2024 End: December 05, 2024 Team Status: Inactive Member Role Status Bhargavi Glass DO Primary Care Provide r, Attending Provider Active Start: January 11, 2025 End: January 11, 2025 Team Status: Inactive Member Role Status Bhargavi Glass DO Primary Care Provide r, Attending Provider Active Start: March 01, 2025 End: March 01, 2025 Team Status: Inactive Member Role Status Bhargavi Glass DO Primary Care Provider Active S tart: March 01, 2025 End: March 01, 2025Dahali Glass DOAttending ProviderActiveStart: March 01, 2025 End: March 01, 2025 Team Status: Inactive Member Role Status Bhargavi Glass DO Primary Care Provider Active S tart: May 01, 2025 End: May 01, 2025Dahali Glass DOAttending ProviderActiveStart: May 01, 2025 End: May 01, 2025 Team Status: Inactive Member Role Status Bhargavi Glass DO Primary Care Provider Active S tart: June 12, 2025 End: June 12, 2025Dahali Glass DOAttending ProviderActiveStart: June 12, 2025 End: June 12, 2025Team MemberRelationshipSpecialtyStart DateEnd Date Varun Glass MD [address] [place] [id number] [facility] Sshfjiyy00[facility] Team Status: Active Member Role/Relationship Status Bhargavi Glass DO Primary Care Provider Active Team Status: Inactive Member Role/Relationship Status Dates Varun Glass DO Primary Care Provider Active S tart: June 12, 2025 End: June 12, 2025Dahali Glass DOAttending ProviderActiveStart: June 12, 2025 End: June 12, 2025 Team Status: Inactive Member Role/Relationship Status Dates Varun Glass DO Primary Care Provider Active S tart: August 04, 2025 End: August 04, 2025DaIsmael Johnson ProviderActiveStart: August 04, 2025 End: August 04, 2025 Goals (unrecognized section and content) Goals may be documented in a n alternate section FOR RECORDS PERTAINING TO PATIENTS WHO ARE OR HAVE BEEN ENROLLED IN A CHEMICAL DEPENDENCY/SUBSTANCEABUSE PROGRAM, SOME INFORMATION MAY BE OMITTED. This clinical summary was aggregated from multiple sources. Caution should be exercised in using it in the provision of clinical care. This summary normalizes information from multiple sources, and as a consequence, information in this document may materially change the coding, format and clinical context of patient data. In addition, data may be omitted in some cases. CLINICAL DECISIONS SHOULD BE BASED ON THE PRIMARY CLINICAL RECORDS. [facility] [employer] [facility]. provides no warranty or guarantee of the accuracy or completeness of information in this document.
--- OUTSIDE RECORDS SUMMARY | 2025-09-24 01:17 | XMS_ITS | Clinical Summary ---
Author Organization [facility] Address [address] [place] [address] Care Team Providers Care Patient Care Coordinator Name Role Phone Amanuel Kevin MD Primary Care Provider [phone] Allergies Active AllergyReactionsCriticalityNoted DateCommentsClarithromycinGI intolerance 06/23/2023 Medications MedicationSigDispense QuantityRefillsLast FilledStart DateEnd DateStatus PROzac 40 MG capsule 5Active omeprazole (PriLOSEC) [address] capsule Take 20 mg by mouth in the morning. Take before meals.4Active ALPRAZolam (Xanax) 1 MG tablet 5Active Encounters DateTypeDepartmentCare WsdpTedzduetadt17/10/2025 10:15 AM EDTOffice Visit [facility] [address] [place] [address] Jermain Wheeler, Encounter for gynecological examination with abnormal finding (Primary Dx); Encounter for screening mammogram for malignant neoplasm of breast; Intrauterine device surveillance; Irregular intermenstrual qbvoudui30/09/2025Travelfrom Last 3 Months Family History Medical HistoryRelationNameCommentsLung cancerFatherAdjustment Disorder with Mixed Anxiety and Depressed MoodMotherCathyHypertensionMotherCathyKidney disease MotherCathyRelationNameStatusCommentsFatherMotherCathy Social History Tobacco UseTypesPacks/DayYears UsedDateSmoking Tobacco: AkwnzpExxozkeqyz394 Smokeless Tobacco: Never Tobacco Cessation:Counseling Given: Not Answered Alcohol UseStandard Drinks/WeekCommentsYes0 (1 standard drink = 0.6 oz pure alcohol)Occasional useCommentsNoSex and Gender InformationValueDate RecordedSex Assigned at BirthNot on fileLegal UvkXmlhzq07/15/2023 6:57 PM EDT Gender IdentityNot on fileSexual OrientationNot on file Last Filed Vital Signs Vital SignReadingTime TakenCommentsBlood Nfnkhhzr713/8207/07/2025 10:06 AM EDT Pulse--Temperature--Respiratory Rate--Oxygen Saturation--Inhaled Oxygen Concentration--Rzqyaw76.5 kg (193 lb)07/07/2025 10:06 AM DZVNdbeez350.6 cm (5' 4 )07/07/2025 10:06 AM EDTBody Mass Index33.131 10:06 AM EDT Plan of Treatment DateTypeDepartmentCare Team (Latest Contact Info)Bowsagnnkiv48/16/2026 10:15 AM EDTOffice Visit [facility] [address] [facility] [place] [address] Jermain Wheeler, DO [address] [facility] [address] [place] [address] Insurance Care Teams Team MemberRelationshipSpecialtyStart DateEnd Date Amanuel Kevin MD [address] [place] [address] [place] [address] PCP - GeneralFamily Sgrxzzsx64/5/23
[2025-09-24] MEDS: BISACODYL 5 MG TABLET 10 MG PO (01:44)
== END 2025-09-24 02:19 | disposition home or self-care (01) ==
PROVIDERS: Emergency Provider Emergency Medicine; PCP Family Medicine
DX: K59.00 Constipation, unspecified (principal)
CPT/HCPCS: 99283